=== PATIENT | female | born 1945 | race Caucasian/White ===

== ENCOUNTER → 2019-01-15 | Outpatient (CLI) | payer MEDICARE ==
--- NOTE | 2019-01-15 12:23 | Diagnostic Imaging Report ---
INDICATION: Epigastric pain. TIME OF EXAMINATION: 11:47 AM. FINDINGS: The heart size is normal. There is some atelectasis in the right base. No free air is seen. The bowel gas pattern appears nonobstructive. There is moderate stool in the colon. Calcific densities in the left abdomen may be vascular from the splenic artery. No definite pathologic calcifications are seen. IMPRESSION: No acute abnormality is detected. Dictated by: Dictated on workstation # [id number]
== END ==
LOC: RAD FS 11:33
PROVIDERS: ATTEND Family Medicine
DX: J01.00 Acute maxillary sinusitis, unspecified (principal); R10.13 Epigastric pain
CPT/HCPCS: 74022

== ENCOUNTER → 2019-06-26 | Outpatient (CLI) | payer MEDICARE ==
[~2019-06-26] MED LIST: CATHETER FLUSH 10 ML SYR IV PRN; HOLD METFORMIN - RECEIVED CONTRAST 20 ML VIAL IV SCH; IOHEXOL 350 MG/ML 100 ML (OMNIPAQUE 350) VIAL IV ONE; NS 100 ML (IVPB) BAG IV ONE
[2019-06-26 15:15] LABS: BUN/CREATININE RATIO 30; GFR ESTIMATED > 60
--- NOTE | 2019-06-26 16:11 | Diagnostic Imaging Report ---
EXAMINATION: CT angiography of the chest. TECHNIQUE: Contrast enhanced thin section helical images were obtained through the chest with intravenous contrast timed for the optimal opacification of the arterial structures per CTA protocol. Post-processing, reconstructions and interpretation of angiographic images of the vessels was performed. 3D MIP reconstructions were performed and reviewed. All CT scans use one or more of the following dose optimizing techniques: automated exposure control, MA and/or KvP adjustment based on a patient size and exam type, or iterative reconstruction. HISTORY: Hypoxia. COMPARISON: None available. FINDINGS: No pulmonary embolism is seen. Aorta is normal in caliber. There is elevation of the right hemidiaphragm. There is a small hiatal hernia. The lungs are clear without edema or pneumonia. No pleural effusion or pneumothorax. No suspicious nodules. Lungs are imaged in a partially expiratory phase leading to a hazy appearance. Heart size is normal. No pericardial effusion. There is no axillary or supraclavicular lymphadenopathy. There is no mediastinal lymphadenopathy. Gallstone is seen in the gallbladder. Cysts are seen in the kidneys. There are no suspicious osseus lesions. IMPRESSION: 1. No pulmonary embolism. 2. Elevated right hemidiaphragm. Dictated by: Dictated on workstation # [id number]
== END ==
LOC: RAD 14:37
PROVIDERS: ATTEND Nurse Practitioner Family
DX: J44.9 Chronic obstructive pulmonary disease, unspecified (principal); G47.33 Obstructive sleep apnea (adult) (pediatric); G47.10 Hypersomnia, unspecified; J98.4 Other disorders of lung; G47.36 Sleep related hypoventilation in conditions classified elsewhere; J98.6 Disorders of diaphragm
CPT/HCPCS: 36415; 71275; 82565; 84520

== ENCOUNTER 2019-07-26 15:52 | Emergency (ER) | payer MEDICARE ==
[~2019-07-26] VITALS: Ht 152 cm; Wt 77.2 kg
--- NOTE | 2019-07-26 16:21 | ED GI ---
General Chief Complaint: Abdominal/GI Problems Stated Complaint: CONGESTION/NAUSEA/VOMITING Nursing Triage Note: PT TO ED AFTER BEING SENT TO THIS ED BY DR MCKEON FOR N/V ONSET YESTERDAY WORSE TODAY. IS CURRENTLY BEING TREATED FOR A SINUS INFECTION BUT DENIES IMPROVEMENT. IS UNABLE TO WEAR HER OXYGEN DUE TO CONGESTION Sepsis Screen: No Definite Risk Source of Information: Patient, Family Exam Limitations: No Limitations (DAYDAY LEONE DO) History of Present Illness Date Seen by Provider: Jul 26, 2019 Time Seen by Provider: 16:20 Initial Comments 73-year-old female presents with congestion and "upset stomach" patient reports that she is had a "sinus infection" for at least a week. That she went and saw her primary care provider who gave her azithromycin but it did not help. She follow up and was given doxycycline and prednisone. She reports that since starting the doxycycline she's had an upset stomach and some stomach cramps. Patient reports that she cannot lay down because the drainage is bad and causes her to not go to sleep and feel like she can't breathe. Patient also reports that she has a lot of nasal congestion and feels like she cannot wear her oxygen because of the congestion. Patient has no reports of fevers. Patient reports that she just has some generalized weakness but this is chronic. (DAYDAY LEONE DO) Allergies and Home Medications Allergies Coded Allergies: No Allergy Information Available (Unverified , 06/26/19) Patient Home Medication List Home Medication List Reviewed: Yes (DAYDAY LEONE DO) Review of Systems Review of Systems Constitutional: No chills, No fever EENTM: See HPI, Nose Congestion Respiratory: See HPI, Cough Cardiovascular: See HPI Gastrointestinal: See HPI Musculoskeletal: no symptoms reported Skin: no symptoms reported (DAYDAY LEONE DO) Past Fnjquoc-Jmbmrq-Fkifzx Hx Past Med/Social Hx: Reviewed Nursing Past Med/Soc Hx (DAYDAY LEONE DO) Patient Social History Alcohol Use: Denies Use Recreational Drug Use: No Smoking Status: Never a Smoker Recent Foreign Travel: No Contact w/Someone Who Travel: No Recent Infectious Disease Expo: No Recent Hopitalizations: No Physical Abuse: No Sexual Abuse: No Mistreated: No Fear: No (DAYDAY LEONE DO) Past Medical History Surgeries: Yes Adenoidectomy, Hysterectomy, Tonsillectomy Respiratory: Yes COPD Cardiac: Yes (STENTS X3 FEBRUARY 2019) Heart Attack Neurological: No Genitourinary: No Gastrointestinal: Yes (POLYPS) Endocrine: No HEENT: No Cancer: No Psychosocial: Yes Anxiety Integumentary: No (LEONEAFIAR Jeannine DO) Physical Exam Vital Signs Vital Signs - First Documented 07/26/19 15:58 Temp 36.2 Pulse 58 Resp 20 B/P (MAP) 140/89 (106) Pulse Ox 27 O2 Delivery Room Air (AVNI BALES) Vital Signs Capillary Refill : Less Than 3 Seconds (LEONEAFIAR L DO) Height/Weight/BMI Height: '" Weight: lbs. oz. kg; 33.00 BMI Method: General Appearance: no apparent distress Respiratory: chest non-tender, lungs clear Cardiovascular: normal peripheral pulses Gastrointestinal: non tender, soft Extremities: normal range of motion, non-tender Neurologic/Psychiatric: alert, normal mood/affect, oriented x 3 Skin: normal color (LEONEAFIAR L DO) Progress/Results/Core Measures Results/Orders Lab Results Laboratory Tests Test 07/26/19 17:15 Range/Units White Blood Count 11.0 4.3-11.0 10^3/uL Red Blood Count 4.66 4.35-5.85 10^6/uL Hemoglobin 14.0 11.5-16.0 G/DL Hematocrit 43 35-52 % Mean Corpuscular Volume 92 80-99 FL Mean Corpuscular Hemoglobin 30 25-34 PG Mean Corpuscular Hemoglobin Concent 33 32-36 G/DL Red Cell Distribution Width 14.5 10.0-14.5 % Platelet Count 206 130-400 10^3/uL Mean Platelet Volume 10.0 7.4-10.4 FL Neutrophils (%) (Auto) 81 H 42-75 % Lymphocytes (%) (Auto) 15 12-44 % Monocytes (%) (Auto) 3 0-12 % Eosinophils (%) (Auto) 1 0-10 % Basophils (%) (Auto) 0 0-10 % Neutrophils # (Auto) 8.0 H 1.8-7.8 X 10^3 Lymphocytes # (Auto) 1.5 1.0-4.0 X 10^3 Monocytes # (Auto) 0.3 0.0-1.0 X 10^3 Eosinophils # (Auto) 0.1 0.0-0.3 10^3/uL Basophils # (Auto) 0.0 0.0-0.1 10^3/uL Sodium Level 139 135-145 MMOL/L Potassium Level 4.5 3.6-5.0 MMOL/L Chloride Level 107 98-107 MMOL/L Carbon Dioxide Level 20 L 21-32 MMOL/L Anion Gap 12 5-14 MMOL/L Blood Urea Nitrogen 18 7-18 MG/DL Creatinine 0.76 0.60-1.30 MG/DL Estimat Glomerular Filtration Rate > 60 BUN/Creatinine Ratio 24 Glucose Level 112 H 70-105 MG/DL Calcium Level 9.3 8.5-10.1 MG/DL Corrected Calcium 9.5 8.5-10.1 MG/DL Total Bilirubin 0.5 0.1-1.0 MG/DL Aspartate Amino Transf (AST/SGOT) 28 5-34 U/L Alanine Aminotransferase (ALT/SGPT) 25 0-55 U/L Alkaline Phosphatase 85 40-136 U/L Total Protein 7.3 6.4-8.2 GM/DL Albumin 3.8 3.2-4.5 GM/DL (AVNI BALES) Vital Signs/I&O 07/26/19 15:58 Temp 36.2 Pulse 58 Resp 20 B/P (MAP) 140/89 (106) Pulse Ox 27 O2 Delivery Room Air (AVNI BALES) Blood Pressure Mean: 106 POS Progress Progress Note : Time: 18:35 Progress Note Assume care of the patient at shift change. Labs were reviewed and x-rays were pending over read by radiologist before the patient can go home with viral upper respiratory symptoms. (AVNI BALES) Diagnostic Imaging Diagonstic Imaging: Xray Plain Films/CT/US/NM/MRI: chest Comments NAME: [facility] REC#: [id number] PT STATUS: REG ER : 1945 PHYSICIAN: DAYDAY LEONE DO ADMIT DATE: 07/26/19/ER Draft POSDate of Exam:07/26/19 CHEST 1 VIEW, AP/PA ONLY EXAM: CHEST 1 VIEW, AP/PA ONLY INDICATION: Nausea and vomiting. Hypoxia. COMPARISON: CTA chest 06/26/2019. FINDINGS: Mild cardiomegaly and prominent central pulmonary vascularity. No focal pulmonary opacity, pleural effusion or pneumothorax. No acute osseous findings. IMPRESSION: Stable cardiomegaly and prominent central pulmonary vascularity. No acute cardiopulmonary findings. Dictated on workstation # [id number] Dict: 07/26/191827 Trans: 07/26/191831 ROBE [id number] Interpreted by: GREY CHAIREZ MD Electronically signed by: Reviewed: Reviewed by Me Diagonstic Imaging: Xray Plain Films/CT/US/NM/MRI: abdomen Comments Normal, unobstructed bowel gas pattern. NAME: [facility] REC#: [id number] PT STATUS: REG ER : 1945 PHYSICIAN: DAYDAY LEONE DO ADMIT DATE: 07/26/19/ER Signed POSDate of Exam:07/26/19 ABDOMEN/KUB 1VIEW EXAMINATION: Abdomen 1 view HISTORY: Nausea and vomiting COMPARISON: 01/15/2019 FINDINGS: Bowel gas pattern is normal. No free air is seen. Lung bases are clear. IMPRESSION: 1. Normal bowel gas pattern. Dictated by: Dictated on workstation # [id number] Dict: 07/26/191827 Trans: 07/26/191831 ROBE [id number] Interpreted by: LISS ALBERTO MD Electronically signed by: LISS ALBERTO MD 07/26/191831 Reviewed: Reviewed by Me (AVNI BALES) Departure Impression Primary Impression: Viral upper respiratory tract infection Disposition: 01 HOME, SELF-CARE Condition: Stable Departure-Patient Inst. Decision time for Depature: 18:37 (AVNI BALES) Referrals: ELISHA MCKEON MD (PCP/Family) Primary Care Physician Patient Instructions: Viral Upper Respiratory Infection, Adult (DC) Add. Discharge Instructions: Nasal decongestants, Flonase, chlorpheniramine, etc. as necessary for symptomatic control. Tylenol and ibuprofen as necessary for body aches. Humidifiers and vapor rubs such as Vicks or Mentholatum. Follow-up with primary care if not seeing improvement next week. All discharge instructions reviewed with patient and/or family. Voiced understanding. DAYDAY LEONE DO Jul 26, 2019 16:20 AVNI GAMBLE Jul 26, 2019 18:35 POS
[2019-07-26 17:22] LABS: BASOPHILS % (AUTO) 0 % (0-10); EOSINOPHILS # (AUTO) 0.1 10^3/uL (0.0-0.3); EOSINOPHILS % (AUTO) 1 % (0-10); LYMPHOCYTES # (AUTO) 1.5 X 10^3 (1.0-4.0); LYMPHOCYTES % (AUTO) 15 % (12-44); MEAN CORPUSCULAR HGB CONC 33 G/DL (32-36); MEAN CORPUSCULAR VOLUME 92 FL (80-99); MONOCYTES # (AUTO) 0.3 X 10^3 (0.0-1.0); MONOCYTES % (AUTO) 3 % (0-12); NEUTROPHILS % (AUTO) 81 % (42-75); RED CELL DISTRIBUTION WIDTH 14.5 % (10.0-14.5)
[2019-07-26 17:24] LABS: HEMATOCRIT 43 % (35-52); MEAN CORPUSCULAR HEMOGLOBIN 30 PG (25-34); PLATELET COUNT 206 10^3/uL (130-400)
[2019-07-26 17:48] LABS: ALANINE AMINOTRANSFERASE 25 U/L (0-55); ALBUMIN 3.8 GM/DL (3.2-4.5); ALKALINE PHOSPHATASE 85 U/L (40-136); BILIRUBIN,TOTAL 0.5 MG/DL (0.1-1.0); BUN/CREATININE RATIO 24; CALCIUM 9.3 MG/DL (8.5-10.1); CARBON DIOXIDE 20 MMOL/L (21-32); CHLORIDE 107 MMOL/L (98-107); CREATININE SERUM 0.76 MG/DL (0.60-1.30); GFR ESTIMATED > 60; GLUCOSE 112 MG/DL (70-105); POTASSIUM 4.5 MMOL/L (3.6-5.0); SODIUM 139 MMOL/L (135-145); TOTAL PROTEIN 7.3 GM/DL (6.4-8.2)
--- NOTE | 2019-07-26 18:31 | Diagnostic Imaging Report ---
EXAMINATION: Abdomen 1 view HISTORY: Nausea and vomiting COMPARISON: 01/15/2019 FINDINGS: Bowel gas pattern is normal. No free air is seen. Lung bases are clear. IMPRESSION: 1. Normal bowel gas pattern. Dictated by: Dictated on workstation # [id number]
--- NOTE | 2019-07-26 18:33 | Diagnostic Imaging Report ---
EXAM: CHEST 1 VIEW, AP/PA ONLY INDICATION: Nausea and vomiting. Hypoxia. COMPARISON: CTA chest 06/26/2019. FINDINGS: Mild cardiomegaly and prominent central pulmonary vascularity. No focal pulmonary opacity, pleural effusion or pneumothorax. No acute osseous findings. IMPRESSION: Stable cardiomegaly and prominent central pulmonary vascularity. No acute cardiopulmonary findings. Dictated by: Dictated on workstation # [id number]
[2019-07-26 19:02] VITALS: BP 121/73
== END 2019-07-26 19:02 | disposition home or self-care (01) ==
LOC: EDUNIT# 15:52 → ER 15:54
DX: J06.9 Acute upper respiratory infection, unspecified (principal); J44.9 Chronic obstructive pulmonary disease, unspecified; I25.2 Old myocardial infarction; F41.9 Anxiety disorder, unspecified; Z90.710 Acquired absence of both cervix and uterus; Z90.89 Acquired absence of other organs
CPT/HCPCS: 36415; 71045; 74018; 80053; 85025

== ENCOUNTER 2019-08-17 18:35 | Outpatient (CLI) | payer MEDICARE, OTHER | END 2019-08-18 07:21 | disposition home or self-care (01) | LOC: SLEEP 18:35 | PROVIDERS: ATTEND Nurse Practitioner Family | DX: G47.33 Obstructive sleep apnea (adult) (pediatric) (principal); G47.36 Sleep related hypoventilation in conditions classified elsewhere; G47.10 Hypersomnia, unspecified; J44.9 Chronic obstructive pulmonary disease, unspecified; J98.4 Other disorders of lung | CPT/HCPCS: 95810 ==

== ENCOUNTER → 2019-08-20 | Outpatient (CLI) | payer MEDICARE, OTHER ==
[2019-08-20 11:24] LABS: ABG BASE EXCESS -2.7 MMOL/L (-2.5-2.5); ABG OXYGEN SATURATION 97 % (94-100); ABG PCO2 36 MMHG (35-45); ABG PH 7.39 (7.37-7.43); ABG PO2 81 MMHG (79-93); ABG TCO2 22.7 MMOL/L (21.0-31.0)
[2019-08-20 11:26] LABS: ALLENS TEST POSITIVE; INSPIRED O2 4 L; PATIENT TEMP 36.2; VENTILATOR NO
--- NOTE | 2019-08-20 15:41 | Diagnostic Imaging Report ---
PROCEDURE: US Venous Lower Ext Ma[place]. TECHNIQUE: Multiple real-time grayscale images were obtained over the lower extremities in various projections, bilaterally. Additional duplex Doppler and color Doppler images were also obtained. INDICATION: Shortness of breath with bilateral lower extremity edema. FINDINGS: There is no evidence of right or left lower extremity DVT. Both lower extremity deep venous systems show normal compressibility with normal response to augmentation and Valsalva. No fluid collection or mass is detected. IMPRESSION: No evidence of right or left lower extremity DVT. Dictated by: Dictated on workstation # [id number]
== END ==
LOC: RT 09:04
PROVIDERS: ATTEND Nurse Practitioner Family
DX: J98.4 Other disorders of lung (principal); J44.9 Chronic obstructive pulmonary disease, unspecified; M79.604 Pain in right leg; R06.00 Dyspnea, unspecified
CPT/HCPCS: 36600; 82805; 93970

== ENCOUNTER → 2019-09-12 | Outpatient (CLI) | payer MEDICARE, OTHER ==
[~2019-09-12] MED LIST changes: -CATHETER FLUSH 10 ML SYR IV PRN; -HOLD METFORMIN - RECEIVED CONTRAST 20 ML VIAL IV SCH; -IOHEXOL 350 MG/ML 100 ML (OMNIPAQUE 350) VIAL IV ONE; -NS 100 ML (IVPB) BAG IV ONE; +RT-ALBUTEROL SULF 2.5 MG/3 ML PRE-MIX VIAL INH ONE
== END ==
LOC: RT 11:17
PROVIDERS: ATTEND Nurse Practitioner Family
DX: J98.4 Other disorders of lung (principal); R06.00 Dyspnea, unspecified; G47.36 Sleep related hypoventilation in conditions classified elsewhere
CPT/HCPCS: 94060; 94726; 94729

== ENCOUNTER 2020-03-06 05:34 | Outpatient (RCR) | payer MEDICARE ==
[~2020-03-06] VITALS: Ht 152.4 cm; Wt 80.5 kg
[2020-03-06] MEDS ORDERED: MONT10TA26 PO ×2 (08:57)
[2020-03-06] MEDS ORDERED: MELO15TA39 PO ×2 (08:57)
[2020-03-06] MEDS ORDERED: LOVA20TA2 PO ×2 (08:57)
[2020-03-06] MEDS ORDERED: SPIR25TA5 PO ×2 (08:57)
[2020-03-06] MEDS ORDERED: ALPR0.254 PO ×2 (08:57)
[2020-03-06] MEDS ORDERED: FEXO180T84 PO ×2 (08:57)
[2020-03-06] MEDS ORDERED: FURO20TA4 PO ×2 (08:57)
[2020-03-06] MEDS ORDERED: LISI-552 PO ×2 (08:57)
[2020-03-06] MEDS ORDERED: ASCO500T17 PO ×2 (08:57)
[2020-03-06] MEDS ORDERED: ACET-2267 PO ×2 (08:57)
[2020-03-06] MEDS ORDERED: ASPI-983 PO ×2 (08:57)
[2020-03-06] MEDS ORDERED: CLOP75TA28 PO ×2 (08:57)
[2020-03-06] MEDS ORDERED: OMEP20TA7 PO ×2 (08:57)
[2020-03-06] MEDS ORDERED: VITA1TAB17 PO ×2 (08:57)
[2020-03-06] MEDS ORDERED: AMLO10TA7 PO ×2 (08:57)
[2020-03-06] MEDS ORDERED: METO50TA7 PO ×2 (08:57)
== END 2020-03-06 12:33 | disposition home or self-care (01) ==
LOC: PREOP 05:34
PROVIDERS: ATTEND Surgery
DX: Z01.812 Encounter for preprocedural laboratory examination (principal); Z20.828 Contact with and (suspected) exposure to other viral communicable diseases; Z86.010 Personal history of colon polyps; Z87.19 Personal history of other diseases of the digestive system
CPT/HCPCS: 87635

== ENCOUNTER 2020-03-10 07:49 | Day surgery (SDC) | payer MEDICARE ==
[~2020-03-10] VITALS: Ht 152.4 cm; Wt 80.5 kg
[~2020-03-10 07:49] MED LIST changes: +ACET-2267 PO; +ALPR0.254 PO; +AMLO10TA7 PO; +ASCO500T17 PO; +ASPI-983 PO; +CLOP75TA28 PO; +FEXO180T84 PO; +FURO20TA4 PO; +LISI-552 PO; +LOVA20TA2 PO; +MELO15TA39 PO; +METO50TA7 PO; +MONT10TA26 PO; +OMEP20TA7 PO; -RT-ALBUTEROL SULF 2.5 MG/3 ML PRE-MIX VIAL INH ONE; +SPIR25TA5 PO; +VITA1TAB17 PO
--- OUTSIDE RECORDS SUMMARY | 2020-03-10 07:55 | XMS REPORT ---
Author Author Renea MCKEON Organization [facility] MA[facility] Address [address] [place] [address] Care Team Providers Care Operations Vocational Instructor Name Role Phone ELISHA MCKEON Unavailable PROBLEMS Type Condition ICD9-CM Code UQZ76-DX Code Onset Dates Condition S tatus SNOMED Code Problem Other and unspecified noninfectious morena roenteritis and colitis(558.9) K52.9 Active 420045385 Problem Bronchitis, not specified as acute or chronic J40 Active 27318236 Problem Pneumonia of both lower lobes due to infectious organi sm J18.1 Sep, Active 399324285 Problem Severe obesity (BMI 35.0-39.9) with comorbidity E66.01 Jun, Active 448256327 Problem Coronary atherosclerosis of [place] coronary artery I25.10 Active 034789691 Problem Pure hypercholesterolemia E78.00 Acti ve 653138618 Problem Arthralgia of right hip M25.551 Feb, Act osmany 324257500 Problem Non morbid obesity due to excess calories E66.09 December, Active 773583475 Problem Sleep apnea G47.30 Nov, Active 78769 006 Problem Essential hypertension I10 Active 05785612 Problem Allergic rhinitis due to other allergen J30.89 Active 50068232 Problem Ischemic cardiomyopathy I25.5 Active 462735653 Problem Generalized osteoarthrosis, unspecified site M15.9 Active 372665193 Problem Old myocardial infarction I25.2 Acti ve 2490337 Problem Panlobular emphysema J43.1 Active 9217071 Problem Hypoxia R09.02 Sep, Active 4300327 02 Problem Dehydration E86.0 Feb, Active 45696 006 Problem Primary osteoarthritis of right foot M19.071 Active 739352022 Problem Benign essential hypertension I10 Active 3376590 Problem Anxiety F41.9 Active 68272665 Problem Mild intermittent asthma, unspecified whether complicated J45.20 Active 018848046 ALLERGIES No Information ENCOUNTERS Encounter Location Date Diagnosis [address] [id number] [place] [address] Mar, [address] [id number] [address] December, Coronary atherosclerosis of [place] coronary artery I25.10 ; Ischemic cardiomyopathy I25.5 ; Generalized osteoarthrosis, unspecified site M15.9 ; Sleep apnea G47.30 and Panlobular emphysema J43.[address] [id number] [place] [address] Nov, [address] [id number] [address] Sep, Anxiety F41.[address] [id number] [address] Sep, [address] [id number] [address] Sep, [address] [id number] [place] [address] Sep, Benign essential hypertensio n I10 and Generalized osteoarthrosis, unspecified site M15.[address] [id number] [address] Aug, [address] [id number] [address] Aug, Anxiety F41.[address] [id number] [place] [address] Aug, Coronary atherosclerosis of [place] coronary artery I25.10 ; Pure hypercholesterolemia E78.00 ; Severe obesity (BMI 35.0-39.9) with comorbidity E66.01 and Ischemic cardiomyopathy I25.[address] [id number] [address] Aug, Pure hypercholesterolemia E7 8.00 [facility] [address] [id number] [place] [address] 13 Jul, 2019 Anxiety F41.9 [facility] [address] [id number] [place] [address] Jul, Acute non-recurrent pansinus itis J01.40 [facility] [address] [id number] [place] [address] Jul, [facility] [address] [id number] [place] [address] Jul, [facility] [address] [id number] [place] [address] Jul, Acute frontal sinusitis, rec urrence not specified J01.10 [facility] [address] [id number] [place] [address] Jun, [facility] [address] [id number] [place] [address] Jun, [facility] [address] [id number] [place] [address] Jun, Acute non-recurrent maxillar y sinusitis J01.00 [facility] [address] [id number] [place] [address] Jun, [facility] [address] [id number] [place] [address] May, Coronary atherosclerosis of [place] coronary artery I25.10 ; Pure hypercholesterolemia E78.00 and Benign essential hypertension I10 [facility] [address] [id number] [place] [address] May, [facility] [address] [id number] [place] [address] May, [facility] [address] [id number] [place] [address] May, Encounter for screening mamm ogram for breast cancer Z12.[address] [id number] [place] [address] May, Chronic bronchitis, unspecif ied chronic bronchitis type J42 and Hypokalemia E87.[address] [id number] [place] [address] Apr, Benign essential hypertensio n I10 [address] 340 [id number] [address] Apr, Encounter for screening mamm ogram for breast cancer Z12.31 ; S/P cardiac cath Z98.890 ; Coronary atherosclerosis of [place] coronary artery I25.10 and Chronic bronchitis, unspecified chronic bronchitis type J42 [address] 340[address] [id number] [place] [address] Apr, Benign essential hypertensio n I10 [address] 340[address] [id number] [place] [address] Mar, Benign essential hypertensio n I10 ; Angina pectoris, unstable I20.0 ; Hypoxia R09.02 ; Elevated cholesterol E78.00 and High risk medication use Z79.[address] [id number] [place] [address] Mar, Benign essential hypertensio n I10 [facility] [address] [facility] [id number] [address] [place] [address] Feb, Elevated cholesterol E78.[address] [id number] [address] Feb, Elevated cholesterol E78.00 ; Benign essential hypertension I10 and Mucopurulent chronic bronchitis J41.1 [facility] [address] [facility] [id number] [address] [place] [address] Feb, [address] [id number] [address] Feb, [address] [id number] [place] [address] Jan, Elevated cholesterol E78.00 and Benign essential hypertension I10 [facility] [facility] [address] [id number] [place] [address] Jan, Acute non-recurrent maxillar y sinusitis J01.00 and Epigastric pain R10.13 [facility] [address] [id number] [place] [address] December, Acute non-recurrent maxillar y sinusitis J01.00 [facility] [address] [id number] [place] [address] December, [facility] [address] [id number] [place] [address] Nov, [facility] [address] [id number] [place] [address] Nov, [facility] [address] 340[address] [id number] [place] [address] Nov, Benign essential hypertensio n I10 ; Elevated cholesterol E78.00 and Acute non-recurrent maxillary sinusitis J01.00 [facility] [address] 340[address] [id number] [place] [address] Nov, [facility] [address] [facility] [id number] [address] [place] [address] Nov, [facility] [address] [id number] [place] [address] Oct, [facility] [address] 340[address] [id number] [place] [address] Sep, [facility] [address] 340[address] [id number] [place] [address] Sep, Elevated cholesterol E78.00 ; Benign essential hypertension I10 ; Mild intermittent asthma, unspecified whether complicated J45.20 ; Anxiety F41.9 and Primary osteoarthritis of right foot M19.071 [facility] [address] [facility] [id number] [address] [place] [address] Aug, [facility] [address] [id number] [address] [place] [address], [place] [address] Aug, [facility] [address] [id number] [address] [place] [address], [place] [address] Jul, [facility] [address] [id number] [address] [place] [address], [place] [address] December, [facility] [address] [id number] [address] [place] [address], [place] [address] Jan, [facility] [address] [id number] [address] [place] [address], [place] [address] Nov, [facility] [address] [id number] [address] [place] [address], [place] [address] Nov, [facility] [address] [id number] [address] [place] [address], [place] [address] Mar, [facility] [address] [id number] [address] [place] [address], [place] [address] Mar, [facility] [address] [id number] [address] [place] [address], [place] [address] Mar, [facility] [address] [id number] [address] [place] [address], [place] [address] Mar, [facility] [address] [id number] [address] [place] [address], [place] [id number] Aug, [facility] [address] [id number] [address] [place] [address], [place] [address] Aug, [facility] [address] [id number] [address] [place] [address], [place] [address] Jul, [facility] [address] [id number] [address] [place] [address], [place] [address] Jul, [facility] [address] [id number] [address] [place] [address], [place] [address] Jul, [facility] [address] [id number] [address] [place] [address], [place] [address] Jul, [facility] [address] [id number] [address] [place] [address], [place] [address] Jul, [facility] [address] [id number] [address] [place] [address], [place] [address] Jul, [facility] [address] [id number] [address] [place] [address], [place] [address] December, [facility] [address] [id number] [address] [place] [address], [place] [address] Nov, [facility] [address] [id number] [address] [place] [address], [place] [address] Jun, [facility] [address] [id number] [address] [place] [address], [place] [address] Jun, [facility] [address] [id number] [address] [place] [address], [place] [address] Jun, [facility] [address] [id number] [address] [place] [address], [place] [address] Jun, [facility] [address] [id number] [address] [place] [address], [place] [address] May, [facility] [address] [id number] [address] [place] [address], [place] [address] May, [facility] [address] [id number] [address] [place] [address], [place] [id number] May, [facility] [address] [id number] [address] [place] [address], [place] [address] May, [facility] [address] [id number] [address] [place] [address], [place] [phone] Jan, [facility] [address] [id number] [address] [place] [address], [place] [address] December, [facility] [address] [id number] [address] [place] [address], [place] [phone] December, [facility] [address] [id number] [address] [place] [address] December, [facility] [address] [id number] [address] [place] [address] December, [facility] [address] [id number] [address] [place] [address] Sep, [facility] [address] [id number] [address] [place] [address] Aug, [facility] [address] [id number] [address] [place] [address] Aug, [facility] [address] [id number] [address] [place] [address] Jun, [facility] [address] [id number] [address] [place] [address] Jun, [facility] [address] [id number] [address] [place] [address] Jun, [facility] [address] [id number] [address] [place] [address] Jun, [facility] [address] [id number] [address] [place] [address] December, IMMUNIZATIONS No Known Immunizations SOCIAL HISTORY Never Assessed REASON FOR VISIT Controlled Med Refill PLAN OF CARE VITAL SIGNS MEDICATIONS Medication Instructions Dosage Frequency Start Date End Date Duration S tatus Xanax 0.25 MG Orally Once a day 1 tablet as needed 24h Jan, 28 days Active RESULTS No Results PROCEDURES No Known procedures INSTRUCTIONS MEDICATIONS ADMINISTERED No Known Medications MEDICAL (GENERAL) HISTORY Type Description Date Medical History Hx DC Medical History Essential Hypertension Medical History Pure Hypercholesterolemia Medical History Coronary Atherosclerosis of [place] Coron alicia Artery Medical History Obesity Medical History Osteoarthrosis Medical History Allergic Rhinitis Medical History Sleep Apnea Medical History Hypoxia Medical History Hypokalemia Medical History Disorder Lipoid Metabolism Medical History Irritable Bowel Surgical History Heart Cath and Stent Placement 02/2019 Hospitalization History [facility] 02/2019
--- OUTSIDE RECORDS SUMMARY | 2020-03-10 07:55 | XMS REPORT ---
Author Author Renea AN Organization [facility] Address [address] [place] [address] Care Team Providers Care Senior Java Web Application Developer Name Role Phone CASTILLO AN Unavailable PROBLEMS Type Condition ICD9-CM Code ICI97-FT Code Onset Dates Condition S tatus SNOMED Code Problem Other and unspecified noninfectious [place] roenteritis and colitis(558.9) K52.9 Active 409351610 Problem Bronchitis, not specified as acute or chronic J40 Active 47518879 Problem Pneumonia of both lower lobes due to infectious organi sm J18.1 Sep, Active 563898112 Problem Severe obesity (BMI 35.0-39.9) with comorbidity E66.01 Jun, Active 707748358 Problem Coronary atherosclerosis of [place] coronary artery I25.10 Active 406098114 Problem Pure hypercholesterolemia E78.00 Acti ve 720703730 Problem Arthralgia of right hip M25.551 Feb, Act osmany 294974406 Problem Non morbid obesity due to excess calories E66.09 December, Active 842453201 Problem Sleep apnea G47.30 23 Nov, 2008 Active 64694 006 Problem Essential hypertension I10 Active 11100817 Problem Allergic rhinitis due to other allergen J30.89 Active 77907126 Problem Ischemic cardiomyopathy I25.5 Active 377112380 Problem Generalized osteoarthrosis, unspecified site M15.9 Active 989790269 Problem Old myocardial infarction I25.2 Acti ve 1306830 Problem Panlobular emphysema J43.1 Active 4962254 Problem Hypoxia R09.02 Sep, Active 6373277 02 Problem Dehydration E86.0 Feb, Active 17990 006 Problem Primary osteoarthritis of right foot M19.071 Active 893561846 Problem Benign essential hypertension I10 Active 3900072 Problem Anxiety F41.9 Active 75135735 Problem Mild intermittent asthma, unspecified whether complicated J45.20 Active 679791954 ALLERGIES No Information ENCOUNTERS Encounter Location Date Diagnosis [facility] [address] [id number] [place] [address] Mar, [address] [id number] [place] [address] December, Coronary atherosclerosis of [place] coronary artery I25.10 ; Ischemic cardiomyopathy I25.5 ; Generalized osteoarthrosis, unspecified site M15.9 ; Sleep apnea G47.30 and Panlobular emphysema J43.[address] [id number] [place] [address] Nov, [address] [id number] [place] [address] Sep, Anxiety F41.[address] [id number] [place] [address] Sep, [address] [id number] [address] Sep, [address] [id number] [place] [address] Sep, Benign essential hypertensio n I10 and Generalized osteoarthrosis, unspecified site M15.[address] [id number] [place] [address] Aug, [address] [id number] [address] Aug, Anxiety F41.[address] [id number] [place] [address] Aug, Coronary atherosclerosis of [place] coronary artery I25.10 ; Pure hypercholesterolemia E78.00 ; Severe obesity (BMI 35.0-39.9) with comorbidity E66.01 and Ischemic cardiomyopathy I25.[address] [id number] [place] [address] Aug, Pure hypercholesterolemia E7 8.[address] [id number] [place] [address] Jul, [facility]xiety F41.9 [facility] [address] [id number] [place] [address] Jul, Acute non-recurrent pansinus itis J01.40 [facility] [address] [id number] [place] [address] Jul, [facility] [address] [id number] [place] [address] Jul, [facility] [address] [id number] [place] [address] Jul, Acute frontal sinusitis, rec urrence not specified J01.10 [facility] [address] [id number] [place] [address] Jun, [facility] [address] [id number] [place] [address] Jun, [facility] [address] [id number] [place] [address] Jun, Acute non-recurrent maxillar y sinusitis J01.00 [facility] [address] [id number] [place] [address] Jun, [facility] [address] [id number] [place] [address] May, Coronary atherosclerosis of [place] coronary artery I25.10 ; Pure hypercholesterolemia E78.00 and Benign essential hypertension I10 [facility] [address] [id number] [place] [address] May, [facility] [address] [id number] [place] [address] May, [facility] [address] [id number] [place] [address] May, Encounter for screening mamm ogram for breast cancer Z12.31 [facility] [address] [id number] [place] [address] May, Chronic bronchitis, unspecif ied chronic bronchitis type J42 and Hypokalemia E87.[address] 340[address] [id number] [place] [address] Apr, Benign essential hypertensio n I10 [address] 340[place] [id number], [place] [address] Apr, Encounter for screening mamm ogram for breast cancer Z12.31 ; S/P cardiac cath Z98.890 ; Coronary atherosclerosis of [place] coronary artery I25.10 and Chronic bronchitis, unspecified chronic bronchitis type J42 [address] 340[address] [id number], [place] [address] Apr, Benign essential hypertensio n I10 [address] 340B [id number], [place] [address] Mar, Benign essential hypertensio n I10 ; Angina pectoris, unstable I20.0 ; Hypoxia R09.02 ; Elevated cholesterol E78.00 and High risk medication use Z79.[address] 340[address] [id number], [place] [address] Mar, Benign essential hypertensio n I10 [facility] [address] [facility] [id number] [address] [place] [address] Feb, Elevated cholesterol E78.[address] 340[address] [id number] [address] Feb, Elevated cholesterol E78.00 ; Benign essential hypertension I10 and Mucopurulent chronic bronchitis J41.1 [facility] [address] [facility] [id number] [address] [place] [address] Feb, [address] 340[address] [id number], [place] [address] Feb, [address] 340[address] [id number] [address] Jan, Elevated cholesterol E78.00 and Benign essential hypertension I10 [facility] [address] 340[address] [id number] [place] [address] Jan, Acute non-recurrent maxillar y sinusitis J01.00 and Epigastric pain R10.13 [facility] [address] [id number] [place] [address] December, Acute non-recurrent maxillar y sinusitis J01.00 [facility] [address] 340B [id number] [place] [address] December, [facility] [address] 340B [id number] [place] [address] Nov, [facility] [address] 340B [id number] [place] [address] Nov, [facility] [address] 340B [id number], [place] [address] Nov, Benign essential hypertensio n I10 ; Elevated cholesterol E78.00 and Acute non-recurrent maxillary sinusitis J01.00 [facility] [address] 340B [id number] [place] [address] Nov, [facility] [address] [facility] [id number] [address] [place] [address] Nov, [facility] [address] 340[address] [id number] [address] Oct, [facility] [address] 340[address] [id number], [place] [address] Sep, [facility] [address] 340[address] [id number], [place] [address] Sep, Elevated cholesterol E78.00 ; Benign essential hypertension I10 ; Mild intermittent asthma, unspecified whether complicated J45.20 ; Anxiety F41.9 and Primary osteoarthritis of right foot M19.071 [facility] [address] [facility] [id number] [address] [place] [address] Aug, [facility] [address] [id number] [address] [place] [address], [place] [address] Aug, [facility] [address] [id number] [address] [place] [address], [place] [address] Jul, [facility] [address] [id number] [address] [place] [address], [place] [address] December, [facility] [address] [id number] [address] [place] [address], [place] [address] Jan, [facility] [address] [id number] [address] [place] [address], [place] [address] Nov, [facility] [address] [id number] [address] [place] [address], [place] [address] Nov, [facility] [address] [id number] [address] [place] [address], [place] [address] Mar, [facility] [address] [id number] [address] [place] [address], [place] [address] Mar, [facility] [address] [id number] [address] [place] [address], [place] [address] Mar, [facility] [address] [id number] [address] [place] [address], [place] [address] Mar, [facility] [address] [id number] [address] [place] [address], [place] [address] Aug, [facility] [address] [id number] [address] [place] [address], [place] [address] Aug, [facility] [address] [id number] [address] [place] [address], [place] [address] Jul, [facility] [address] [id number] [address] [place] [address], [place] [address] Jul, [facility] [address] [id number] [address] [place] [address], [place] [address] Jul, [facility] [address] [id number] [address] [place] [address], [place] [address] Jul, [facility] [address] [id number] [address] [place] [address], [place] [address] Jul, [facility] [address] [id number] [address] [place] [address], [place] [address] Jul, [facility] [address] [id number] [address] [place] [address], [place] [address] December, [facility] [address] [id number] [address] [place] [address], [place] [address] Nov, [facility] [address] [id number] [address] [place] [address], [place] [address] Jun, [facility] [address] [id number] [address] [place] [address], [place] [address] Jun, [facility] [address] [id number] [address] [place] [address], [place] [address] Jun, [facility] [address] [id number] [address] [place] [address], [place] [address] Jun, [facility] [address] [id number] [address] [place] [address], [place] [address] May, [facility] [address] [id number] [address] [place] [address], [place] [address] May, [facility] [address] [id number] [address] [place] [address], [place] [address] May, [facility] [address] [id number] [address] [place] [address], [place] [address] May, [facility] [address] [id number] [address] [place] [address], [place] [address] Jan, [facility] [address] [id number] [address] [place] [address], [place] [address] December, [facility] [address] [id number] [address] [place] [address], [place] [address] December, [facility] [address] [id number] [address] [place] [address] December, [facility] [address] [id number] [address] [place] [address] December, [facility] [address] [id number] [address] [place] [address] Sep, [facility] [address] [id number] [address] [place] [address] Aug, [facility] [address] [id number] [address] [place] [address] Aug, [facility] [address] [id number] [address] [place] [address] Jun, [facility] [address] [id number] [address] [place] [address] Jun, [facility] [address] [id number] [address] [place] [address] Jun, [facility] [address] [id number] [address] [place] [address] 15 Jun, 2011 [facility] [address] [id number] [address] [place] [address] December, IMMUNIZATIONS No Known Immunizations SOCIAL HISTORY Never Assessed REASON FOR VISIT PLAN OF CARE VITAL SIGNS Height 62 in 2013-07-20 Weight 177.9 lbs 2013-07-20 Temperature 97.7 degrees Fahrenheit 2013-07-20 Heart Rate 60 bpm 2013-07-20 Respiratory Rate 20 2013-07-20 Blood pressure systolic 142 mmHg 2013-07-20 Blood pressure diastolic 80 mmHg 2013-07-20 MEDICATIONS Unknown Medications RESULTS No Results PROCEDURES Procedure Date Ordered Result Body Site ADMN FLU VAC NO FEE SCHED SAME DAY Jul 20, 2013 INSTRUCTIONS MEDICATIONS ADMINISTERED No Known Medications MEDICAL (GENERAL) HISTORY Type Description Date Medical History Hx VA Medical History Essential Hypertension Medical History Pure Hypercholesterolemia Medical History Coronary Atherosclerosis of [place] Coron alicia Artery Medical History Obesity Medical History Osteoarthrosis Medical History Allergic Rhinitis Medical History Sleep Apnea Medical History Hypoxia Medical History Hypokalemia Medical History Disorder Lipoid Metabolism Medical History Irritable Bowel Surgical History Heart Cath and Stent Placement 02/2019 Hospitalization History [facility] 02/2019
--- OUTSIDE RECORDS SUMMARY | 2020-03-10 07:56 | XMS REPORT ---
Author Author Renea AN Organization [facility] Address [address] [place] [address] Care Team Providers Care Fire Investigation Lieutenant Name Role Phone CASTILLO AN Unavailable PROBLEMS Type Condition ICD9-CM Code LVC03-HX Code Onset Dates Condition S tatus SNOMED Code Problem Bronchitis, not specified as acute or chronic J40 Active 41204612 Problem Dehydration E86.0 Feb, Active 91895 006 Problem Severe obesity (BMI 35.0-39.9) with comorbidity E66.01 Jun, Active 396122261 Problem Other and unspecified noninfectious morena roenteritis and colitis(558.9) K52.9 Active 174484524 Problem Pure hypercholesterolemia E78.00 Acti ve 518103592 Problem Pneumonia of both lower lobes due to infectious organi sm J18.1 Sep, Active 789545668 Problem Non morbid obesity due to excess calories E66.09 December, Active 222365197 Problem Coronary atherosclerosis of [place] coronary artery I25.10 Active 527292688 Problem Generalized osteoarthrosis, unspecified site M15.9 Active 550608652 Problem Sleep apnea G47.30 Nov, Active 24429 006 Problem Essential hypertension I10 Active 53323734 Problem Mild intermittent asthma, unspecified whether complicated J45.20 Active 632261464 Problem Hypoxia R09.02 Sep, Active 4279249 02 Problem Ischemic cardiomyopathy I25.5 Active 742904937 Problem Arthralgia of right hip M25.551 12 Feb, 2016 Act osmany 642282551 Problem Old myocardial infarction I25.2 Acti ve 7771590 Problem Allergic rhinitis due to other allergen J30.89 Active 88242338 Problem Primary osteoarthritis of right foot M19.071 Active 298276472 Problem Benign essential hypertension I10 Active 1668068 Problem Anxiety F41.9 Active 43529528 ALLERGIES No Information ENCOUNTERS Encounter Location Date Diagnosis [address] [id number] [place] [address] December, [address] [id number] [place] [address] Sep, Anxiety F41.[address] [id number] [place] [address] Sep, [address] [id number] [address] Sep, [address] [id number] [place] [address] Sep, Benign essential hypertensio n I10 and Generalized osteoarthrosis, unspecified site M15.[address] [id number] [place] [address] Aug, [id number], [place] [address] Aug, Anxiety F41.[address] [id number], [place] [address] Aug, Coronary atherosclerosis of [place] coronary artery I25.10 ; Pure hypercholesterolemia E78.00 ; Severe obesity (BMI 35.0-39.9) with comorbidity E66.01 and Ischemic cardiomyopathy I25.[address] [id number], [place] [address] Aug, Pure hypercholesterolemia E7 8.[address] [id number] [place] [address] Jul, Anxiety F41.[address] [id number], [place] [address] Jul, Acute non-recurrent pansinus itis J01.40 [facility] [address] [id number] [place] [address] Jul, [address] [id number], [place] [address] Jul, [facility] [address] [id number] [place] [address] Jul, Acute frontal sinusitis, rec urrence not specified J01.10 [facility] [address] [id number] [place] [address] Jun, [facility] [address] [id number] [place] [address] Jun, [facility] [address] [id number] [place] [address] Jun, Acute non-recurrent maxillar y sinusitis J01.00 [facility] [address] [id number] [place] [address] Jun, [facility] [address] [id number] [place] [address] May, Coronary atherosclerosis of [place] coronary artery I25.10 ; Pure hypercholesterolemia E78.00 and Benign essential hypertension I10 [facility] [address] [id number] [place] [address] May, [facility] [address] [id number] [place] [address] May, [facility] [address] [id number] [place] [address] May, Encounter for screening mamm ogram for breast cancer Z12.31 [facility] [address] [id number] [place] [address] May, Chronic bronchitis, unspecif ied chronic bronchitis type J42 and Hypokalemia E87.6 [facility] [address] [id number] [place] [address] Apr, Benign essential hypertensio n I10 [facility] [address] [id number] [place] [address] Apr, Encounter for screening mamm ogram for breast cancer Z12.31 ; S/P cardiac cath Z98.890 ; Coronary atherosclerosis of [place] coronary artery I25.10 and Chronic bronchitis, unspecified chronic bronchitis type J42 [address] [id number] [place] [address] Apr, Benign essential hypertensio n I10 [address] [id number] [place] [address] Mar, Benign essential hypertensio n I10 ; Angina pectoris, unstable I20.0 ; Hypoxia R09.02 ; Elevated cholesterol E78.00 and High risk medication use Z79.[address] [id number], [place] [address] Mar, Benign essential hypertensio n I10 [facility] [address] [facility] [id number] [place], [place] [address] Feb, Elevated cholesterol E78.[address] [id number], [place] [address] Feb, Elevated cholesterol E78.00 ; Benign essential hypertension I10 and Mucopurulent chronic bronchitis J41.1 [facility] [address] [facility] [id number] [place] [address] Feb, [address] [id number] [place] [address] Feb, [address] [id number], [place] [address] Jan, Elevated cholesterol E78.00 and Benign essential hypertension I10 [address] [id number] [place] [address] Jan, Acute non-recurrent maxillar y sinusitis J01.00 and Epigastric pain R10.[address] [id number] [place] [address] December, Acute non-recurrent maxillar y sinusitis J01.[address] [id number] [place] [address] December, [facility] [address] [id number] [place] [address] Nov, [facility] [address] [id number] [place] [address] Nov, [facility] [address] [id number] [place] [address] Nov, Benign essential hypertensio n I10 ; Elevated cholesterol E78.00 and Acute non-recurrent maxillary sinusitis J01.00 [facility] [place] [address] [id number] [place] [address] Nov, [facility] [address] [facility] [id number] [address] [place] [place] [address] Nov, [facility] [address] [id number] [place] [address] Oct, [facility] [address] [id number] [place] [address] Sep, [facility] [address] [id number] [place] [address] Sep, Elevated cholesterol E78.00 ; Benign essential hypertension I10 ; Mild intermittent asthma, unspecified whether complicated J45.20 ; Anxiety F41.9 and Primary osteoarthritis of right foot M19.071 [facility] [address] [facility] [id number] [address] [place] [place] [address] Aug, [facility] [address] [facility]] [id number] [address] [place] [place] [address] Aug, [facility] [address] [facility] [id number] [address] [place] [place] [address] Jul, [facility] [address] [facility] [id number] [address] [place] [place] [address] December, [facility] [address] [facility] [id number] [address] [place] [place] [address] Jan, [facility] [address] [id number] [address] [place] [address], [place] [address] Nov, [facility] [address] [id number] [address] [place] [address], [place] [address] Nov, [facility] [address] [id number] [address] [place] [address], [place] [address] Mar, [facility] [address] [id number] [address] [place] [address], [place] [address] Mar, [facility] [address] [id number] [address] [place] [address], [place] [address] Mar, [facility] [address] [id number] [address] [place] [address], [place] [address] Mar, [facility] [address] [id number] [address] [place] [address], [place] [address] Aug, [facility] [address] [id number] [address] [place] [address], [place] [address] Aug, [facility] [address] [id number] [address] [place] [address], [place] [address] Jul, [facility] [address] [id number] [address] [place] [address], [place] [address] Jul, [facility] [address] [id number] [address] [place] [address], [place] [address] Jul, [facility] [address] [id number] [address] [place] [address], [place] [address] Jul, [facility] [address] [id number] [address] [place] [address], [place] [address] Jul, [facility] [address] [id number] [address] [place] [address], [place] [address] Jul, [facility] [address] [id number] [address] [place] [address], [place] [address] December, [facility] [address] [id number] [address] [place] [address], [place] [address] Nov, [facility] [address] [id number] [address] [place] [address], [place] [address] Jun, [facility] [address] [id number] [address] [place] [address], [place] [address] Jun, [facility] [address] [id number] [address] [place] [address], [place] [address] Jun, [facility] [address] [id number] [address] [place] [address], [place] [address] Jun, [facility] [address] [id number] [address] [place] [address], [place] [address] May, [facility] [address] [id number] [address] [place] [address], [place] [address] May, [facility] [address] [id number] [address] [place] [address], [place] [address] May, [facility] [address] [id number] [address] [place] [address], [place] [address] May, [facility] [address] [id number] [address] [place] [address], [place] [address] Jan, [facility] [address] [id number] [address] [place] [address], [place] [address] December, [facility] [address] [id number] [address] [place] [address], [place] [address] December, [facility] [address] [id number] [address] [place] [address], [place] [address] December, [facility] [address] [id number] [address] [place] [address], [place] [address] December, [facility] [address] [id number] [address] [place] [address], [place] [address] Sep, [facility] [address] [id number] [address] [place] [address], [place] [address] Aug, [facility] [address] [facility] [id number] [address] [place] [address] Aug, [facility] [address] [facility]] [id number] [address] [place] [place] [address] Jun, [facility] [address] [facility] [id number] [address] [place] [place] [address] Jun, [facility] [address] [facility] [id number] [address] [place] [place] [address] Jun, [facility] [address] [facility] [id number] [address] [place] [place] [address] Jun, [facility] [address] [facility] [id number] [address] [place] [place] [address] December, IMMUNIZATIONS No Known Immunizations SOCIAL HISTORY Never Assessed REASON FOR VISIT PLAN OF CARE VITAL SIGNS MEDICATIONS Unknown Medications RESULTS No Results PROCEDURES No Known procedures INSTRUCTIONS MEDICATIONS ADMINISTERED No Known Medications MEDICAL (GENERAL) HISTORY Type Description Date Medical History Hx NE Medical History Essential Hypertension Medical History Pure Hypercholesterolemia Medical History Coronary Atherosclerosis of [place] Coron alicia Artery Medical History Obesity Medical History Osteoarthrosis Medical History Allergic Rhinitis Medical History Sleep Apnea Medical History Hypoxia Medical History Hypokalemia Medical History Disorder Lipoid Metabolism Medical History Irritable Bowel Surgical History Heart Cath and Stent Placement 02/2019 Hospitalization History [facility] 02/2019
--- OUTSIDE RECORDS SUMMARY | 2020-03-10 07:56 | XMS REPORT ---
Author Author Renea AN Organization [facility] Address [address] [place] [address] Care Team Providers Care Automatic Engraver Name Role Phone CASTILLO AN Unavailable PROBLEMS Type Condition ICD9-CM Code TGF68-IE Code Onset Dates Condition S tatus SNOMED Code Problem Other and unspecified noninfectious [place] roenteritis and colitis(558.9) K52.9 Active 500460805 Problem Bronchitis, not specified as acute or chronic J40 Active 52358925 Problem Pneumonia of both lower lobes due to infectious organi sm J18.1 Sep, Active 664432233 Problem Severe obesity (BMI 35.0-39.9) with comorbidity E66.01 Jun, Active 601818984 Problem Coronary atherosclerosis of [place] coronary artery I25.10 Active 278809013 Problem Pure hypercholesterolemia E78.00 Acti ve 066114596 Problem Arthralgia of right hip M25.551 Feb, Act osmany 691112222 Problem Non morbid obesity due to excess calories E66.09 December, Active 345170981 Problem Sleep apnea G47.30 23 Nov, 2008 Active 91031 006 Problem Essential hypertension I10 Active 92926266 Problem Allergic rhinitis due to other allergen J30.89 Active 96738394 Problem Ischemic cardiomyopathy I25.5 Active 188734549 Problem Generalized osteoarthrosis, unspecified site M15.9 Active 229855929 Problem Old myocardial infarction I25.2 Acti ve 1130714 Problem Panlobular emphysema J43.1 Active 4008411 Problem Hypoxia R09.02 Sep, Active 4360953 02 Problem Dehydration E86.0 Feb, Active 72986 006 Problem Primary osteoarthritis of right foot M19.071 Active 837864387 Problem Benign essential hypertension I10 Active 6696878 Problem Anxiety F41.9 Active 44847711 Problem Mild intermittent asthma, unspecified whether complicated J45.20 Active 425514722 ALLERGIES No Information ENCOUNTERS Encounter Location Date Diagnosis [facility] [address] [id number] [place] [address] Mar, [address] [id number] [place] [address] December, Coronary atherosclerosis of [place] coronary artery I25.10 ; Ischemic cardiomyopathy I25.5 ; Generalized osteoarthrosis, unspecified site M15.9 ; Sleep apnea G47.30 and Panlobular emphysema J43.[address] [id number] [place] [address] Nov, [address] [id number] [place] [address] Sep, Anxiety F41.[address] [id number] [place] [address] Sep, [address] 340[address] [id number], [place] [address] Sep, [address] [id number] [place] [address] Sep, Benign essential hypertensio n I10 and Generalized osteoarthrosis, unspecified site M15.[address] [id number] [place] [address] Aug, [address] 340[address] [id number], [place] [address] Aug, Anxiety F41.[address] [id number] [place] [address] Aug, Coronary atherosclerosis of [place] coronary artery I25.10 ; Pure hypercholesterolemia E78.00 ; Severe obesity (BMI 35.0-39.9) with comorbidity E66.01 and Ischemic cardiomyopathy I25.[address] 340[address] [id number] [place] [address] Aug, Pure hypercholesterolemia E7 8.[address] [id number] [place] [address] Jul, [facility]xiety F41.9 [facility] [address] [id number] [place] [address] Jul, Acute non-recurrent pansinus itis J01.40 [facility] [address] [id number] [place] [address] Jul, [facility] [address] [id number] [place] [address] Jul, [facility] [address] [id number] [place] [address] Jul, Acute frontal sinusitis, rec urrence not specified J01.10 [facility] [address] [id number] [place] [address] Jun, [facility] [address] [id number] [place] [address] Jun, [facility] [address] [id number] [place] [address] Jun, Acute non-recurrent maxillar y sinusitis J01.00 [facility] [address] [id number] [place] [address] Jun, [facility] [address] [id number] [place] [address] May, Coronary atherosclerosis of [place] coronary artery I25.10 ; Pure hypercholesterolemia E78.00 and Benign essential hypertension I10 [facility] [address] [id number] [place] [address] May, [facility] [address] [id number] [place] [address] May, [facility] [address] [id number] [place] [address] May, Encounter for screening mamm ogram for breast cancer Z12.31 [facility] [address] [id number] [place] [address] May, Chronic bronchitis, unspecif ied chronic bronchitis type J42 and Hypokalemia E87.[address] 340B [id number] [place] [address] Apr, Benign essential hypertensio n I10 [address] 340B [id number], [place] [address] Apr, Encounter for screening mamm ogram for breast cancer Z12.31 ; S/P cardiac cath Z98.890 ; Coronary atherosclerosis of [place] coronary artery I25.10 and Chronic bronchitis, unspecified chronic bronchitis type J42 [address] 340B [id number], [place] [address] Apr, Benign essential hypertensio n I10 [address] 340B [id number], [place] [address] Mar, Benign essential hypertensio n I10 ; Angina pectoris, unstable I20.0 ; Hypoxia R09.02 ; Elevated cholesterol E78.00 and High risk medication use Z79.[address] 340B [id number], [place] [address] Mar, Benign essential hypertensio n I10 [facility] [address] [facility] [id number] [address] [place] [address] Feb, Elevated cholesterol E78.[address] 340B [id number], [place] [address] Feb, Elevated cholesterol E78.00 ; Benign essential hypertension I10 and Mucopurulent chronic bronchitis J41.1 [facility] [address] [facility] [id number] [address] [place] [address] Feb, [address] 340[address] [id number], [place] [address] Feb, [address] 340B [id number], [place] [address] Jan, Elevated cholesterol E78.00 and Benign essential hypertension I10 [facility] [facility] [address]B [id number] [place] [address] Jan, Acute non-recurrent maxillar y sinusitis J01.00 and Epigastric pain R10.13 [facility] [address] [id number] [place] [address] December, Acute non-recurrent maxillar y sinusitis J01.00 [facility] [address] [id number] [place] [address] December, [facility] [address] 340B [id number] [place] [address] Nov, [facility] [address]B [id number] [place] [address] Nov, [facility] [address] 340B [id number], [place] [address] Nov, Benign essential hypertensio n I10 ; Elevated cholesterol E78.00 and Acute non-recurrent maxillary sinusitis J01.00 [facility] [facility] [address] 340B [id number] [place] [address] Nov, [facility] [address] [facility] [id number] [address] [place] [address] Nov, [facility] [address] 340B [id number], [place] [address] Oct, [facility] [address] 340B [id number], [place] [address] Sep, [facility] [address] 340B [id number], [place] [address] Sep, Elevated cholesterol E78.00 ; Benign essential hypertension I10 ; Mild intermittent asthma, unspecified whether complicated J45.20 ; Anxiety F41.9 and Primary osteoarthritis of right foot M19.071 [facility] [address] [facility] [id number] [address] [place] [address] Aug, [facility] [address] [id number] [address] [place] [address], [place] [address] Aug, [facility] [address] [id number] [address] [place] [address], [place] [address] Jul, [facility] [address] [id number] [address] [place] [address], [place] [address] December, [facility] [address] [id number] [address] [place] [address], [place] [address] Jan, [facility] [address] [id number] [address] [place] [address], [place] [address] Nov, [facility] [address] [id number] [address] [place] [address], [place] [address] Nov, [facility] [address] [id number] [address] [place] [address], [place] [address] Mar, [facility] [address] [id number] [address] [place] [address], [place] [address] Mar, [facility] [address] [id number] [address] [place] [address], [place] [address] Mar, [facility] [address] [id number] [address] [place] [address], [place] [address] Mar, [facility] [address] [id number] [address] [place] [address], [place] [address] Aug, [facility] [address] [id number] [address] [place] [address], [place] [address] Aug, [facility] [address] [id number] [address] [place] [address], [place] [address] Jul, [facility] [address] [id number] [address] [place] [address], [place] [address] Jul, [facility] [address] [id number] [address] [place] [address], [place] [address] Jul, [facility] [address] [id number] [address] [place] [address], [place] [address] Jul, [facility] [address] [id number] [address] [place] [address], [place] [address] Jul, [facility] [address] [id number] [address] [place] [address], [place] [address] Jul, [facility] [address] [id number] [address] [place] [address], [place] [address] December, [facility] [address] [id number] [address] [place] [address], [place] [address] Nov, [facility] [address] [id number] [address] [place] [address], [place] [address] Jun, [facility] [address] [id number] [address] [place] [address], [place] [address] Jun, [facility] [address] [id number] [address] [place] [address], [place] [address] Jun, [facility] [address] [id number] [address] [place] [address], [place] [address] Jun, [facility] [address] [id number] [address] [place] [address], [place] [address] May, [facility] [address] [id number] [address] [place] [address], [place] [address] May, [facility] [address] [id number] [address] [place] [address], [place] [address] May, [facility] [address] [id number] [address] [place] [address], [place] [address] May, [facility] [address] [id number] [address] [place] [address], [place] [address] Jan, [facility] [address] [id number] [address] [place] [address], [place] [address] December, [facility] [address] [id number] [address] [place] [address], [place] [address] December, [facility] [address] [id number] [address] [place] [address] December, [facility] [address] [id number] [address] [place] [address] December, [facility] [address] [id number] [address] [place] [address] Sep, [facility] [address] [id number] [address] [place] [address] Aug, [facility] [address] [id number] [address] [place] [address] Aug, [facility] [address] [id number] [address] [place] [address] Jun, [facility] [address] [id number] [address] [place] [address] Jun, [facility] [address] [id number] [address] [place] [address] Jun, [facility] [address] [id number] [address] [place] [address] Jun, [facility] [address] [id number] [address] [place] [address] December, IMMUNIZATIONS No Known Immunizations SOCIAL HISTORY Never Assessed REASON FOR VISIT PLAN OF CARE VITAL SIGNS MEDICATIONS Unknown Medications RESULTS No Results PROCEDURES No Known procedures INSTRUCTIONS MEDICATIONS ADMINISTERED No Known Medications MEDICAL (GENERAL) HISTORY Type Description Date Medical History Hx [place] Medical History Essential Hypertension Medical History Pure Hypercholesterolemia Medical History Coronary Atherosclerosis of [place] Coron alicia Artery Medical History Obesity Medical History Osteoarthrosis Medical History Allergic Rhinitis Medical History Sleep Apnea Medical History Hypoxia Medical History Hypokalemia Medical History Disorder Lipoid Metabolism Medical History Irritable Bowel Surgical History Heart Cath and Stent Placement 02/2019 Hospitalization History [facility] 02/2019
--- OUTSIDE RECORDS SUMMARY | 2020-03-10 07:56 | XMS REPORT ---
Author Author Renea AN Organization [facility] Address [address] [place] [address] Care Team Providers Care Director Of Emergency Nursing Name Role Phone CASTILLO AN Unavailable PROBLEMS Type Condition ICD9-CM Code [id number] Code Onset Dates Condition S tatus SNOMED Code Problem Bronchitis, not specified as acute or chronic J40 Active 39339065 Problem Dehydration E86.0 Feb, Active 45331 006 Problem Severe obesity (BMI 35.0-39.9) with comorbidity E66.01 Jun, Active 912138297 Problem Other and unspecified noninfectious [place]na roenteritis and colitis(558.9) K52.9 Active 172017131 Problem Pure hypercholesterolemia E78.00 Acti ve 182083263 Problem Pneumonia of both lower lobes due to infectious organi sm J18.1 Sep, Active 187045275 Problem Non morbid obesity due to excess calories E66.09 December, Active 403329274 Problem Coronary atherosclerosis of [place] coronary artery I25.10 Active 661476806 Problem Generalized osteoarthrosis, unspecified site M15.9 Active 694911850 Problem Sleep apnea G47.30 Nov, Active 92270 006 Problem Essential hypertension I10 Active 23719293 Problem Mild intermittent asthma, unspecified whether complicated J45.20 Active 220955915 Problem Hypoxia R09.02 Sep, Active 7055100 02 Problem Ischemic cardiomyopathy I25.5 Active 207100940 Problem Arthralgia of right hip M25.551 Feb, Act osmany 947611068 Problem Old myocardial infarction I25.2 Acti ve 7720494 Problem Allergic rhinitis due to other allergen J30.89 Active 99805484 Problem Primary osteoarthritis of right foot M19.071 Active 070387045 Problem Benign essential hypertension I10 Active 8146784 Problem Anxiety F41.9 Active 09993662 ALLERGIES No Information ENCOUNTERS Encounter Location Date Diagnosis [address] [place] [address] December, [address] [place] [address] Sep, Anxiety F41.[address] [place] [address] Sep, [address] [place] [address] Sep, [address] [place] [address] Sep, Benign essential hypertensio n I10 and Generalized osteoarthrosis, unspecified site M15.[address] [place] [address] Aug, [address] [place] [address] Aug, Anxiety F41.[address] [place] [address] Aug, Coronary atherosclerosis of [place] coronary artery I25.10 ; Pure hypercholesterolemia E78.00 ; Severe obesity (BMI 35.0-39.9) with comorbidity E66.01 and Ischemic cardiomyopathy I25.[address] [place] [address] Aug, Pure hypercholesterolemia E7 8.[address] [place] [address] Jul, Anxiety F41.[address] [place] [address] Jul, Acute non-recurrent pansinus itis J01.40 [facility] [address] [place] [address] Jul, [address] [place] [address] Jul, [facility] [address] [place] [address] Jul, Acute frontal sinusitis, rec urrence not specified J01.10 [facility] [address] [place] [address] Jun, [facility] [address] [place] [address] Jun, [facility] [place] [address] [place] [address] Jun, Acute non-recurrent maxillar y sinusitis J01.00 [facility] [address] [place] [address] Jun, [facility] [address] [place] [address] May, Coronary atherosclerosis of [place] coronary artery I25.10 ; Pure hypercholesterolemia E78.00 and Benign essential hypertension I10 [facility] [address] [place] [address] May, [facility] [address] [place] [address] May, [facility] [address] [place] [address] May, Encounter for screening mamm ogram for breast cancer Z12.31 [facility] [address] [place] [address] May, Chronic bronchitis, unspecif ied chronic bronchitis type J42 and Hypokalemia E87.6 [facility] [address] [place] [address] Apr, Benign essential hypertensio n I10 [facility] [address] [place] [address] Apr, Encounter for screening mamm ogram for breast cancer Z12.31 ; S/P cardiac cath Z98.890 ; Coronary atherosclerosis of [place] coronary artery I25.10 and Chronic bronchitis, unspecified chronic bronchitis type J42 [address] [place] [address] Apr, Benign essential hypertensio n I10 [address] [place] [address] Mar, Benign essential hypertensio n I10 ; Angina pectoris, unstable I20.0 ; Hypoxia R09.02 ; Elevated cholesterol E78.00 and High risk medication use Z79.[address] [place] [address] Mar, Benign essential hypertensio n I10 [facility] [address] [id number] [place] [address] Feb, Elevated cholesterol E78.[address] [place] [address] Feb, Elevated cholesterol E78.00 ; Benign essential hypertension I10 and Mucopurulent chronic bronchitis J41.1 [facility] [address] [id number] [place] [address] Feb, [address] [place] [address] Feb, [address] [place] [address] Jan, Elevated cholesterol E78.00 and Benign essential hypertension I10 [address] [place] [address] Jan, Acute non-recurrent maxillar y sinusitis J01.00 and Epigastric pain R10.[address] [place] [address] December, Acute non-recurrent maxillar y sinusitis J01.[address] [place] [address] December, [address] [place] [address] Nov, [facility] [address] [place] [address] Nov, [address] [place] [address] Nov, Benign essential hypertensio n I10 ; Elevated cholesterol E78.00 and Acute non-recurrent maxillary sinusitis J01.00 [facility] [address] [place] [address] Nov, [facility] [id number] [place] [address] Nov, [facility] [address] [place] [address] Oct, [facility] [address] [place] [address] Sep, [facility] [address] [place] [address] Sep, Elevated cholesterol E78.00 ; Benign essential hypertension I10 ; Mild intermittent asthma, unspecified whether complicated J45.20 ; Anxiety F41.9 and Primary osteoarthritis of right foot M19.071 [facility] [id number] [place] [address] Aug, [facility] [id number] [place] [address] Aug, [facility] [id number] [place] [address] Jul, [facility] [id number] [place] [address] December, [facility] [address] [address] Jan, [facility] [id number] [place] [address] Nov, [facility] [address] [address] Nov, [facility] [address] [id number] [place] [address] Mar, [facility] [address] [id number] [place] [address] Mar, [facility] [address] [id number] [place] [address] Mar, [facility] [address] [id number] [place] [address] Mar, [facility] [address] [id number] [place] [address] Aug, [facility] [address] [id number] [place] [address] Aug, [facility] [address] [id number] [place] [address] Jul, [facility] [address] [id number] [place] [address] Jul, [facility] [address] [id number] [place] [address] Jul, [facility] [address] [id number] [place] [address] Jul, [facility] [address] [id number] [place] [address] Jul, [facility] [address] [id number] [place] [address] Jul, [facility] [address] [id number] [place] [address] December, [facility] [address] [id number] [place] [address] Nov, [facility] [address] [id number] [place] [address] Jun, [facility] [address] [id number] [place] [address] Jun, [facility] [address] [id number] [place] [address] Jun, [facility] [address] [id number] [place] [address] Jun, [facility] [address] [id number] [place] [address] May, [facility] [address] [id number] [place] [address] May, [facility] [address] [id number] [place] [address] May, [facility] [address] [id number] [place] [address] May, [facility] [address] [id number] [place] [address] Jan, [facility] [address] [id number] [place] [address] December, [facility] [id number] [place] [address] December, [facility] [address] [id number] [place] [address] December, [facility] [id number] [place] [address] December, [facility] [address] [id number] [place] [address] Sep, [facility] [address] [id number] [place] [address] Aug, [facility] [address] [id number] [place] [address] Aug, [facility] [id number] [place] [address] Jun, [facility] [address] [id number] [place] [address] Jun, [facility] [id number] [place] [address] Jun, [facility] [address] [facility] [id number] [place] [address] Jun, [facility] [address] [facility] [id number] [place] [address] December, IMMUNIZATIONS No Known Immunizations SOCIAL HISTORY Never Assessed REASON FOR VISIT PLAN OF CARE VITAL SIGNS MEDICATIONS Unknown Medications RESULTS No Results PROCEDURES No Known procedures INSTRUCTIONS MEDICATIONS ADMINISTERED No Known Medications MEDICAL (GENERAL) HISTORY Type Description Date Medical History Hx AK Medical History Essential Hypertension Medical History Pure Hypercholesterolemia Medical History Coronary Atherosclerosis of [place] Coron alicia Artery Medical History Obesity Medical History Osteoarthrosis Medical History Allergic Rhinitis Medical History Sleep Apnea Medical History Hypoxia Medical History Hypokalemia Medical History Disorder Lipoid Metabolism Medical History Irritable Bowel Surgical History Heart Cath and Stent Placement 02/2019 Hospitalization History [facility] 02/2019
--- OUTSIDE RECORDS SUMMARY | 2020-03-10 07:56 | XMS REPORT ---
Author Author Renea MCKEON Organization [facility] Address [address] [place] [address] Care Team Providers Care Branch Examiner Name Role Phone ELISHA MCKEON Unavailable PROBLEMS Type Condition ICD9-CM Code OCU26-EV Code Onset Dates Condition S tatus SNOMED Code Problem Bronchitis, not specified as acute or chronic J40 Active 99549997 Problem Dehydration E86.0 Feb, Active 27413 006 Problem Severe obesity (BMI 35.0-39.9) with comorbidity E66.01 Jun, Active 112078582 Problem Other and unspecified noninfectious [place] roenteritis and colitis(558.9) K52.9 Active 255261238 Problem Pure hypercholesterolemia E78.00 Acti ve 705468732 Problem Pneumonia of both lower lobes due to infectious organi sm J18.1 Sep, Active 185953891 Problem Non morbid obesity due to excess calories E66.09 December, Active 800804179 Problem Coronary atherosclerosis of [place] coronary artery I25.10 Active 030148142 Problem Generalized osteoarthrosis, unspecified site M15.9 Active 846674820 Problem Sleep apnea G47.30 Nov, Active 52243 006 Problem Essential hypertension I10 Active 46929616 Problem Mild intermittent asthma, unspecified whether complicated J45.20 Active 602633076 Problem Hypoxia R09.02 Sep, Active 9791544 02 Problem Ischemic cardiomyopathy I25.5 Active 983200419 Problem Arthralgia of right hip M25.551 Feb, Act osmany 512432601 Problem Old myocardial infarction I25.2 Acti ve 1122360 Problem Allergic rhinitis due to other allergen J30.89 Active 56847699 Problem Primary osteoarthritis of right foot M19.071 Active 440182801 Problem Benign essential hypertension I10 Active 6376799 Problem Anxiety F41.9 Active 34615991 ALLERGIES No Information ENCOUNTERS Encounter Location Date Diagnosis [facility] [address] [place] [address] December, UNKNOWN Sep, [facility] [address] [place] [address] Sep, Benign essential hypertensio n I10 and Generalized osteoarthrosis, unspecified site M15.9 [facility] [address] [place] [address] Aug, [facility] [address] [place] [address] Aug, Anxiety F41.9 [facility] [address] [place] [address] Aug, Coronary atherosclerosis of [place] coronary artery I25.10 ; Pure hypercholesterolemia E78.00 ; Severe obesity (BMI 35.0-39.9) with comorbidity E66.01 and Ischemic cardiomyopathy I25.5 [facility] [place] [address] [place] [address] Aug, Pure hypercholesterolemia E7 8.[address] [place] [address] Jul, Anxiety F41.[address] [place] [address] Jul, Acute non-recurrent pansinus itis J01.40 [facility] [address] [facility] [address] [place] [address] Jul, [facility] [address] [place] [address] Jul, [address] [place] [address] Jul, Acute frontal sinusitis, rec urrence not specified J01.10 [facility] [address] [place] [address] Jun, [facility] [address] [place] [address] 08 Jun, [address] [place] [address] Jun, Acute non-recurrent maxillar y sinusitis J01.[address] [place] [address] Jun, [address] [place] [address] May, Coronary atherosclerosis of [place] coronary artery I25.10 ; Pure hypercholesterolemia E78.00 and Benign essential hypertension I10 [address] [place] [address] May, [address] [place] [address] May, [address] [place] [address] May, Encounter for screening mamm ogram for breast cancer Z12.[address] [place] [address] May, Chronic bronchitis, unspecif ied chronic bronchitis type J42 and Hypokalemia E87.[address] [place] [address] Apr, Benign essential hypertensio n I10 [address] [place] [address] Apr, Encounter for screening mamm ogram for breast cancer Z12.31 ; S/P cardiac cath Z98.890 ; Coronary atherosclerosis of [place] coronary artery I25.10 and Chronic bronchitis, unspecified chronic bronchitis type J42 [address] [place] [address] Apr, Benign essential hypertensio n I10 [address] [place] [address] Mar, Benign essential hypertensio n I10 ; Angina pectoris, unstable I20.0 ; Hypoxia R09.02 ; Elevated cholesterol E78.00 and High risk medication use Z79.899 [facility] [address] [place] [address] Mar, Benign essential hypertensio n I10 [facility] [id number] [place] [address] Feb, Elevated cholesterol E78.[address] [place] [address] Feb, Elevated cholesterol E78.00 ; Benign essential hypertension I10 and Mucopurulent chronic bronchitis J41.1 [facility] [id number] [place] [address] Feb, [address] [place] [address] Feb, [address] [place] [address] Jan, Elevated cholesterol E78.00 and Benign essential hypertension I10 [facility] [address] [place] [address] Jan, Acute non-recurrent maxillar y sinusitis J01.00 and Epigastric pain R10.13 [facility] [address] [place] [address] December, Acute non-recurrent maxillar y sinusitis J01.[address] [place] [address] December, [address] [place] [address] Nov, [address] [place] [address] Nov, [address] [place] [address] Nov, Benign essential hypertensio n I10 ; Elevated cholesterol E78.00 and Acute non-recurrent maxillary sinusitis J01.00 [facility] [place] [address] [place] [address] Nov, [facility] [address] [id number] [place] [address] Nov, [facility] [place] [address] [place] [address] Oct, [facility] [place] [address] [place] [address] Sep, [facility] [place] [address] [place] [address] Sep, Elevated cholesterol E78.00 ; Benign essential hypertension I10 ; Mild intermittent asthma, unspecified whether complicated J45.20 ; Anxiety F41.9 and Primary osteoarthritis of right foot M19.071 [facility] [id number] [place] [address] Aug, [facility] [id number] [place] [address] Aug, [facility] [id number] [place] [address] Jul, [facility] [id number] [place] [address] December, [facility] [id number] [place] [address] Jan, [facility] [id number] [place] [address] Nov, [facility] [id number] [place] [address] Nov, [facility] [id number] [place] [address] Mar, [facility] [id number] [place] [address] Mar, [facility] [id number] [place] [address] Mar, [facility] [address] [id number] [place] [address] Mar, [facility] [address] [id number] [place] [address] Aug, [facility] [address] [id number] [place] [address] Aug, [facility] [address] [id number] [place] [address] Jul, [facility] [address] [id number] [place] [address] Jul, [facility] [address] [id number] [place] [address] Jul, [facility] [address] [id number] [place] [address] Jul, [facility] [address] [id number] [place] [address] Jul, [facility] [address] [id number] [place] [address] Jul, [facility] [address] [id number] [place] [address] December, [facility] [address] [id number] [place] [address] Nov, [facility] [address] [id number] [place] [address] Jun, [facility] [address] [id number] [place] [address] Jun, [facility] [address] [id number] [place] [address] Jun, [facility] [address] [id number] [place] [address] Jun, [facility] [address] [id number] [place] [address] May, [facility] [id number] [place] [address] May, [facility] [address] [id number] [place] [address] May, [facility] [id number] [place] [address] May, [facility] [id number] [place] [address] Jan, [facility] [id number] [place] [address] December, [facility] [id number] [place] [address] December, [facility] [id number] [place] [address] December, [facility] [id number] [place] [address] December, [facility] [id number] [place] [address] Sep, [facility] [id number] [place] [address] Aug, [facility] [address] [id number] [place] [address] Aug, [facility] [address] [id number] [place] [address] Jun, [facility] [address] [id number] [place] [address] Jun, [facility] [address] [id number] [place] [address] Jun, [facility] [address] [id number] [place] [address] Jun, [facility] [address] [id number] [place] [address] December, IMMUNIZATIONS No Known Immunizations SOCIAL HISTORY Never Assessed REASON FOR VISIT Controlled Med Refill PLAN OF CARE VITAL SIGNS MEDICATIONS Medication Instructions Dosage Frequency Start Date End Date Duration S tatus Ultram 50 MG Orally 4 times a day 1-2 tablets as needed 6h 28 days Active RESULTS No Results PROCEDURES No Known procedures INSTRUCTIONS MEDICATIONS ADMINISTERED No Known Medications MEDICAL (GENERAL) HISTORY Type Description Date Medical History Hx HI Medical History Essential Hypertension Medical History Pure Hypercholesterolemia Medical History Coronary Atherosclerosis of [place] Coron alicia Artery Medical History Obesity Medical History Osteoarthrosis Medical History Allergic Rhinitis Medical History Sleep Apnea Medical History Hypoxia Medical History Hypokalemia Medical History Disorder Lipoid Metabolism Medical History Irritable Bowel Surgical History Heart Cath and Stent Placement 02/2019 Hospitalization History [facility] 02/2019
--- OUTSIDE RECORDS SUMMARY | 2020-03-10 07:56 | XMS REPORT ---
Author Author Renea AN Organization [facility] Address [address] [place] [address] Care Team Providers Care Bone Char Operator Name Role Phone CASTILLO NA Unavailable PROBLEMS Type Condition ICD9-CM Code UXY77-OR Code Onset Dates Condition S tatus SNOMED Code Problem Other and unspecified noninfectious morena roenteritis and colitis(558.9) K52.9 Active 726212981 Problem Bronchitis, not specified as acute or chronic J40 Active 07431908 Problem Pneumonia of both lower lobes due to infectious organi sm J18.1 Sep, Active 977638514 Problem Severe obesity (BMI 35.0-39.9) with comorbidity E66.01 Jun, Active 874349992 Problem Coronary atherosclerosis of [place] coronary artery I25.10 Active 098699401 Problem Pure hypercholesterolemia E78.00 Acti ve 208131555 Problem Arthralgia of right hip M25.551 Feb, Act osmnay 537074362 Problem Non morbid obesity due to excess calories E66.09 December, Active 334041385 Problem Sleep apnea G47.30 23 Nov, 2008 Active 55540 006 Problem Essential hypertension I10 Active 44894430 Problem Allergic rhinitis due to other allergen J30.89 Active 65016631 Problem Ischemic cardiomyopathy I25.5 Active 124526576 Problem Generalized osteoarthrosis, unspecified site M15.9 Active 324585968 Problem Old myocardial infarction I25.2 Acti ve 5680352 Problem Panlobular emphysema J43.1 Active 2897465 Problem Hypoxia R09.02 Sep, Active 7357008 02 Problem Dehydration E86.0 Feb, Active 67386 006 Problem Primary osteoarthritis of right foot M19.071 Active 850533618 Problem Benign essential hypertension I10 Active 5182352 Problem Anxiety F41.9 Active 37818920 Problem Mild intermittent asthma, unspecified whether complicated J45.20 Active 774666151 ALLERGIES No Information ENCOUNTERS Encounter Location Date Diagnosis [facility] [place] [address] [id number] [place] [address] Mar, [address] [id number] [place] [address] December, Coronary atherosclerosis of [place] coronary artery I25.10 ; Ischemic cardiomyopathy I25.5 ; Generalized osteoarthrosis, unspecified site M15.9 ; Sleep apnea G47.30 and Panlobular emphysema J43.[address] [id number] [place] [address] Nov, [address] [id number] [place] [address] Sep, Anxiety F41.[address] [id number] [place] [address] Sep, [address] [id number] [address] Sep, [address] [id number] [place] [address] Sep, Benign essential hypertensio n I10 and Generalized osteoarthrosis, unspecified site M15.[address] [id number] [place] [address] Aug, [address] 340[id number] [address] Aug, Anxiety F41.[address] [id number] [place] [address] Aug, Coronary atherosclerosis of [place] coronary artery I25.10 ; Pure hypercholesterolemia E78.00 ; Severe obesity (BMI 35.0-39.9) with comorbidity E66.01 and Ischemic cardiomyopathy I25.[address] [id number] [place] [address] Aug, Pure hypercholesterolemia E7 8.[address] 340B [id number] [place] [address] Jul, Anxiety F41.9 [facility] [address] [id number] [place] [address] Jul, Acute non-recurrent pansinus itis J01.40 [facility] [address] [id number] [place] [address] Jul, [facility] [address] [id number] [place] [address] Jul, [facility] [address] [id number] [place] [address] Jul, Acute frontal sinusitis, rec urrence not specified J01.10 [facility] [address] [id number] [place] [address] Jun, [facility] [address] [id number] [place] [address] Jun, [facility] [place] [address] [id number] [place] [address] Jun, Acute non-recurrent maxillar y sinusitis J01.00 [facility] [address] [id number] [place] [address] Jun, [facility] [place] [address] [id number] [place] [address] May, Coronary atherosclerosis of [place] coronary artery I25.10 ; Pure hypercholesterolemia E78.00 and Benign essential hypertension I10 [facility] [address] [id number] [place] [address] May, [facility] [address] [id number] [place] [address] May, [facility] [place] [address] [id number] [place] [address] May, Encounter for screening mamm ogram for breast cancer Z12.31 [facility] [address] [id number] [place] [address] May, Chronic bronchitis, unspecif ied chronic bronchitis type J42 and Hypokalemia E87.[address] 340[address] [id number] [place] [address] Apr, Benign essential hypertensio n I10 [address] 340B [id number] [address] Apr, Encounter for screening mamm ogram for breast cancer Z12.31 ; S/P cardiac cath Z98.890 ; Coronary atherosclerosis of [place] coronary artery I25.10 and Chronic bronchitis, unspecified chronic bronchitis type J42 [address] 340B [id number] [address] Apr, Benign essential hypertensio n I10 [address] 340B [id number], [place] [address] Mar, Benign essential hypertensio n I10 ; Angina pectoris, unstable I20.0 ; Hypoxia R09.02 ; Elevated cholesterol E78.00 and High risk medication use Z79.[address] 340B [id number], [place] [address] Mar, Benign essential hypertensio n I10 [facility] [address] [facility] [id number] [address] [place] [address] Feb, Elevated cholesterol E78.[address] 340B [id number], [place] [address] Feb, Elevated cholesterol E78.00 ; Benign essential hypertension I10 and Mucopurulent chronic bronchitis J41.1 [facility] [address] [facility] [id number] [address] [place] [address] Feb, [address] 340B [id number], [place] [address] Feb, [address] 340B [id number], [place] [address] Jan, Elevated cholesterol E78.00 and Benign essential hypertension I10 [facility] [place] [address] 340B [id number] [place] [address] Jan, Acute non-recurrent maxillar y sinusitis J01.00 and Epigastric pain R10.13 [facility] [place] [address] 340B [id number] [place] [address] December, Acute non-recurrent maxillar y sinusitis J01.00 [facility] [place] [address] 340B [id number] [place] [address] December, [facility] [place] [address] 340B [id number] [place] [address] Nov, [facility] [place] [address]B [id number] [place] [address] Nov, [facility] [place] [address] 340B [id number], [place] [address] Nov, Benign essential hypertensio n I10 ; Elevated cholesterol E78.00 and Acute non-recurrent maxillary sinusitis J01.00 [facility] [place] [address] 340B [id number] [place] [address] Nov, [facility] [address] [facility] [id number] [address] [place] [address] Nov, [facility] [place] [address] 340B [id number], [place] [address] Oct, [facility] [place] [address] 340B [id number], [place] [address] Sep, [facility] [place] [address] 340B [id number], [place] [address] Sep, Elevated cholesterol E78.00 ; Benign essential hypertension I10 ; Mild intermittent asthma, unspecified whether complicated J45.20 ; Anxiety F41.9 and Primary osteoarthritis of right foot M19.071 [facility] [address] [facility] [id number] [address] [place] [address] Aug, [facility] [address] [id number] [address] [place] [address], [place] [address] Aug, [facility] [address] [id number] [address] [place] [address], [place] [address] Jul, [facility] [address] [id number] [address] [place] [address], [place] [address] December, [facility] [address] [id number] [address] [place] [address], [place] [address] Jan, [facility] [address] [id number] [address] [place] [address], [place] [address] Nov, [facility] [address] [id number] [address] [place] [address], [place] [address] Nov, [facility] [address] [id number] [address] [place] [address], [place] [address] Mar, [facility] [address] [id number] [address] [place] [address], [place] [address] Mar, [facility] [address] [id number] [address] [place] [address], [place] [address] Mar, [facility] [address] [id number] [address] [place] [address], [place] [address] Mar, [facility] [address] [id number] [address] [place] [address], [place] [address] Aug, [facility] [address] [id number] [address] [place] [address], [place] [address] Aug, [facility] [address] [id number] [address] [place] [address], [place] [address] Jul, [facility] [address] [id number] [address] [place] [address], [place] [address] Jul, [facility] [address] [id number] [address] [place] [address], [place] [address] Jul, [facility] [address] [id number] [address] [place] [address], [place] [address] Jul, [facility] [address] [id number] [address] [place] [address], [place] [address] Jul, [facility] [address] [id number] [address] [place] [address], [place] [address] Jul, [facility] [address] [id number] [address] [place] [address], [place] [address] December, [facility] [address] [id number] [address] [place] [address], [place] [address] Nov, [facility] [address] [id number] [address] [place] [address], [place] [address] Jun, [facility] [address] [id number] [address] [place] [address], [place] [address] Jun, [facility] [address] [id number] [address] [place] [address], [place] [address] Jun, [facility] [address] [id number] [address] [place] [address], [place] [address] Jun, [facility] [address] [id number] [address] [place] [address], [place] [address] May, [facility] [address] [id number] [address] [place] [address], [place] [address] May, [facility] [address] [id number] [address] [place] [address], [place] [address] May, [facility] [address] [id number] [address] [place] [address], [place] [address] May, [facility] [address] [id number] [address] [place] [address], [place] [address] Jan, [facility] [address] [id number] [address] [place] [address], [place] [address] December, [facility] [address] [id number] [address] [place] [address], [place] [address] December, [facility] [address] [id number] [address] [place] [address] December, [facility] [address] [id number] [address] [place] [address] December, [facility] [address] [id number] [address] [place] [address] Sep, [facility] [address] [id number] [address] [place] [address] Aug, [facility] [address] [id number] [address] [place] [address] Aug, [facility] [address] [id number] [address] [place] [address] Jun, [facility] [address] [id number] [address] [place] [address] Jun, [facility] [address] [id number] [address] [place] [address] Jun, [facility] [address] [id number] [address] [place] [address] Jun, [facility] [address] [id number] [address] [place] [address] December, IMMUNIZATIONS No Known Immunizations SOCIAL HISTORY Never Assessed REASON FOR VISIT PLAN OF CARE VITAL SIGNS MEDICATIONS Unknown Medications RESULTS No Results PROCEDURES No Known procedures INSTRUCTIONS MEDICATIONS ADMINISTERED No Known Medications MEDICAL (GENERAL) HISTORY Type Description Date Medical History Hx LA Medical History Essential Hypertension Medical History Pure Hypercholesterolemia Medical History Coronary Atherosclerosis of [place] Coron alicia Artery Medical History Obesity Medical History Osteoarthrosis Medical History Allergic Rhinitis Medical History Sleep Apnea Medical History Hypoxia Medical History Hypokalemia Medical History Disorder Lipoid Metabolism Medical History Irritable Bowel Surgical History Heart Cath and Stent Placement 02/2019 Hospitalization History [facility] 02/2019
--- OUTSIDE RECORDS SUMMARY | 2020-03-10 07:56 | XMS REPORT ---
Author Author Renea AN Organization [facility] Address [address] [place] [address] Care Team Providers Care Card Placer Name Role Phone CASTILLO AN Unavailable PROBLEMS Type Condition ICD9-CM Code OKG72-TH Code Onset Dates Condition S tatus SNOMED Code Problem Bronchitis, not specified as acute or chronic J40 Active 96556097 Problem Dehydration E86.0 Feb, Active 13244 006 Problem Severe obesity (BMI 35.0-39.9) with comorbidity E66.01 Jun, Active 631566395 Problem Other and unspecified noninfectious morena roenteritis and colitis(558.9) K52.9 Active 036163439 Problem Pure hypercholesterolemia E78.00 Acti ve 046979234 Problem Pneumonia of both lower lobes due to infectious organi sm J18.1 Sep, Active 357012295 Problem Non morbid obesity due to excess calories E66.09 December, Active 417076600 Problem Coronary atherosclerosis of [place] coronary artery I25.10 Active 675067089 Problem Generalized osteoarthrosis, unspecified site M15.9 Active 235824364 Problem Sleep apnea G47.30 Nov, Active 29716 006 Problem Essential hypertension I10 Active 31144951 Problem Mild intermittent asthma, unspecified whether complicated J45.20 Active 619985747 Problem Hypoxia R09.02 Sep, Active 2370002 02 Problem Ischemic cardiomyopathy I25.5 Active 579729185 Problem Arthralgia of right hip M25.551 Feb, Act osmany 361928026 Problem Old myocardial infarction I25.2 Acti ve 9710256 Problem Allergic rhinitis due to other allergen J30.89 Active 73794805 Problem Primary osteoarthritis of right foot M19.071 Active 677792586 Problem Benign essential hypertension I10 Active 1012485 Problem Anxiety F41.9 Active 84223528 ALLERGIES No Information ENCOUNTERS Encounter Location Date Diagnosis [address] [id number] [place] [address] December, [address] [id number] [place] [address] Sep, Anxiety F41.[address] [id number] [place] [address] Sep, [address] [id number] [address] Sep, [address] [id number] [place] [address] Sep, Benign essential hypertensio n I10 and Generalized osteoarthrosis, unspecified site M15.[address] [id number] [place] [address] Aug, [address] [id number], [place] [address] Aug, Anxiety F41.[address] [id number], [place] [address] Aug, Coronary atherosclerosis of alturas coronary artery I25.10 ; Pure hypercholesterolemia E78.00 ; Severe obesity (BMI 35.0-39.9) with comorbidity E66.01 and Ischemic cardiomyopathy I25.[address] [id number], [place] [address] Aug, Pure hypercholesterolemia E7 8.[address] [id number] [place] [address] Jul, Anxiety F41.[address] [id number], [place] [address] Jul, Acute non-recurrent pansinus itis J01.40 [facility] [address] [id number] [place] [address] Jul, [address] [id number], [place] [address] Jul, [facility] [place] [address] [id number] [place] [address] Jul, Acute frontal sinusitis, rec urrence not specified J01.10 [facility] [place] [address] [id number] [place] [address] Jun, [facility] [address] [id number] [place] [address] Jun, [facility] [place] [address] [id number] [place] [address] Jun, Acute non-recurrent maxillar y sinusitis J01.00 [facility] [address] [id number] [place] [address] Jun, [facility] ANILA [address] [id number] [place] [address] May, Coronary atherosclerosis of alturas coronary artery I25.10 ; Pure hypercholesterolemia E78.00 and Benign essential hypertension I10 [facility] [address] [id number] [place] [address] May, [facility] [address] [id number] [place] [address] May, [facility] [address] [id number] [place] [address] May, Encounter for screening mamm ogram for breast cancer Z12.31 [facility] [place] [address] [id number] [place] [address] May, Chronic bronchitis, unspecif ied chronic bronchitis type J42 and Hypokalemia E87.6 [facility] [address] [id number] [place] [address] Apr, Benign essential hypertensio n I10 [facility] [place] [address] [id number] [place] [address] Apr, Encounter for screening mamm ogram for breast cancer Z12.31 ; S/P cardiac cath Z98.890 ; Coronary atherosclerosis of [place] coronary artery I25.10 and Chronic bronchitis, unspecified chronic bronchitis type J42 [address] [id number] [place] [address] Apr, Benign essential hypertensio n I10 [address] 340[address] [id number] [place] [address] Mar, Benign essential hypertensio n I10 ; Angina pectoris, unstable I20.0 ; Hypoxia R09.02 ; Elevated cholesterol E78.00 and High risk medication use Z79.[address] [id number], [place] [address] Mar, Benign essential hypertensio n I10 [facility] [address] [facility] [id number] [place] [address] Feb, Elevated cholesterol E78.[address] [id number], [place] [address] Feb, Elevated cholesterol E78.00 ; Benign essential hypertension I10 and Mucopurulent chronic bronchitis J41.1 [facility] [address] [facility] [id number] [place] [address] Feb, [address] [id number] [place] [address] Feb, [address] 340[address] [id number], [place] [address] Jan, Elevated cholesterol E78.00 and Benign essential hypertension I10 [address] [id number] [place] [address] Jan, Acute non-recurrent maxillar y sinusitis J01.00 and Epigastric pain R10.[address] 340[address] [id number] [place] [address] December, Acute non-recurrent maxillar y sinusitis J01.[address] [id number] [place] [address] December, [facility] [place] [address] [id number] [place] [address] Nov, [facility] [place] [address] [id number] [place] [address] Nov, [facility] [place] [address] 340B [id number] [place] [address] Nov, Benign essential hypertensio n I10 ; Elevated cholesterol E78.00 and Acute non-recurrent maxillary sinusitis J01.00 [facility] ANILA [place] [address] 340[address] [id number] [place] [address] Nov, [facility] [address] [facility] [id number] [address] [place] [address] Nov, [facility] [place] [address] [id number] [place] [address] Oct, [facility] [place] [address] [id number] [place] [address] Sep, [facility] [place] [address] 340[address] [id number] [place] [address] Sep, Elevated cholesterol E78.00 ; Benign essential hypertension I10 ; Mild intermittent asthma, unspecified whether complicated J45.20 ; Anxiety F41.9 and Primary osteoarthritis of right foot M19.071 [facility] [address] [facility] [id number] [address] [place] [address] Aug, [facility] [address] [facility] [id number] [address] [place] [address] Aug, [facility] [address] [facility] [id number] [address] [place] [address] Jul, [facility] [address] [facility] [id number] [address] [place] [address] December, [facility] [address] [facility] [id number] [address] [place] [address] Jan, [facility] [address] [id number] [address] [place] [address], [place] [address] Nov, [facility] [address] [id number] [address] [place] [address], [place] [address] Nov, [facility] [address] [id number] [address] [place] [address], [place] [address] Mar, [facility] [address] [id number] [address] [place] [address], [place] [address] Mar, [facility] [address] [id number] [address] [place] [address], [place] [address] Mar, [facility] [address] [id number] [address] [place] [address], [place] [address] Mar, [facility] [address] [id number] [address] [place] [address], [place] [address] Aug, [facility] [address] [id number] [address] [place] [address], [place] [address] Aug, [facility] [address] [id number] [address] [place] [address], [place] [address] Jul, [facility] [address] [id number] [address] [place] [address], [place] [address] Jul, [facility] [address] [id number] [address] [place] [address], [place] [address] Jul, [facility] [address] [id number] [address] [place] [address], [place] [address] Jul, [facility] [address] [id number] [address] [place] [address], [place] [address] Jul, [facility] [address] [id number] [address] [place] [address], [place] [address] Jul, [facility] [address] [id number] [address] [place] [address], [place] [address] December, [facility] [address] [id number] [address] [place] [address], [place] [address] Nov, [facility] [address] [id number] [address] [place] [address], [place] [address] Jun, [facility] [address] [id number] [address] [place] [address], [place] [address] Jun, [facility] [address] [id number] [address] [place] [address], [place] [address] Jun, [facility] [address] [id number] [address] [place] [address], [place] [address] Jun, [facility] [address] [id number] [address] [place] [address], [place] [address] May, [facility] [address] [id number] [address] [place] [address], [place] [address] May, [facility] [address] [id number] [address] [place] [address], [place] [address] May, [facility] [address] [id number] [address] [place] [address], [place] [address] May, [facility] [address] [id number] [address] [place] [address], [place] [address] Jan, [facility] [address] [id number] [address] [place] [address], [place] [address] December, [facility] [address] [id number] [address] [place] [address], [place] [address] December, [facility] [address] [id number] [address] [place] [address], [place] [address] December, [facility] [address] [id number] [address] [place] [address], [place] [address] December, [facility] [address] [id number] [address] [place] [address], [place] [address] Sep, [facility] [address] [id number] [address] [place] [address], [place] [address] Aug, [facility] [address] [id number] [address] [place] [address] Aug, [facility] [address] [id number] [address] [place] [address] Jun, [facility] [address] [id number] [address] [place] [address] Jun, [facility] [address] [id number] [address] [place] [address] Jun, [facility] [address] [id number] [address] [place] [address] Jun, [facility] [address] [facility] [id number] [address] [place] [address] December, IMMUNIZATIONS No Known Immunizations SOCIAL HISTORY Never Assessed REASON FOR VISIT PLAN OF CARE VITAL SIGNS Height 62 in 2014-04-08 Weight 175.4 lbs 2014-04-08 Temperature 98 degrees Fahrenheit 2014-04-08 Heart Rate 64 bpm 2014-04-08 Respiratory Rate 20 2014-04-08 Blood pressure systolic 144 mmHg 2014-04-08 Blood pressure diastolic 90 mmHg 2014-04-08 MEDICATIONS Unknown Medications RESULTS No Results PROCEDURES No Known procedures INSTRUCTIONS MEDICATIONS ADMINISTERED No Known Medications MEDICAL (GENERAL) HISTORY Type Description Date Medical History Hx CA Medical History Essential Hypertension Medical History Pure Hypercholesterolemia Medical History Coronary Atherosclerosis of [place] Coron alicia Artery Medical History Obesity Medical History Osteoarthrosis Medical History Allergic Rhinitis Medical History Sleep Apnea Medical History Hypoxia Medical History Hypokalemia Medical History Disorder Lipoid Metabolism Medical History Irritable Bowel Surgical History Heart Cath and Stent Placement 02/2019 Hospitalization History [facility] 02/2019
--- OUTSIDE RECORDS SUMMARY | 2020-03-10 07:57 | XMS REPORT | Continuity of Care Document ---
Author Organization Unknown Address Unknown Phone Unavailable Allergies Active Description Code Type Severity Reaction Onset Reported/Identified Relationship to Patient Clinical Status Yes sulfa drug Drug Allergy 12/12/2009 Yes No Allergy Information Available [id number] Drug Allergy Unknown N/A 019 Yes amoxicillin [id number] Drug Aller gy Unknown N/A 03/04/2020 Yes citalopram [id number] Drug Allerg y Unknown N/A 03/04/2020 Yes Sulfa (Sulfonamide Antibiotics) [id number] Drug Allergy Unknown N/A 020 Medications There is no data. Problems Date Dx Coded Attending Type Code Diagnosis Diagnosed By 12/12/2009 CASTILLO AN MD 272.4 HYPERLIPIDEMIA HYPERLIPOPROTEINEMIAS (Old Classification) 12/12/2009 CASTILLO AN MD 401.1 ESSENTIAL HYPERTENSION BENIGN 12/12/2009 CASTILLO AN MD 272.4 HYPERLIPIDEMIA HYPERLIPOPROTEINEMIAS (Old Classification) 12/12/2009 CASTILLO AN MD 401.1 ESSENTIAL HYPERTENSION BENIGN 12/12/2009 CASTILLO AN MD 272.4 HYPERLIPIDEMIA HYPERLIPOPROTEINEMIAS (Old Classification) 12/12/2009 CASTILLO AN MD 401.1 ESSENTIAL HYPERTENSION BENIGN 12/12/2009 CASTILLO AN MD 272.4 HYPERLIPIDEMIA HYPERLIPOPROTEINEMIAS (Old Classification) 12/12/2009 CASTILLO AN MD 401.1 ESSENTIAL HYPERTENSION BENIGN 12/29/2009 CASTILLO AN MD 380.1 0 Otitis Externa 12/29/2009 CASTILLO AN MD 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 12/29/2009 CASTILLO NA MD 380.1 0 Otitis Externa 12/29/2009 CASTILLO AN MD 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 12/29/2009 CASTILLO AN MD 380.1 0 Otitis Externa 12/29/2009 CASTILLO AN MD 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 12/29/2009 CASTILLO AN MD 380.1 0 Otitis Externa 12/29/2009 CASTILLO AN MD 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 06/29/2011 CASTILLO AN MD 300.0 0 ANXIETY STATE UNSPECIFIED 06/29/2011 CASTILLO AN MD 716.9 0 UNSPECIFIED ARTHROPATHY SITE UNSPECIFIED 06/29/2011 CASTILLO AN MD 300.0 0 ANXIETY STATE UNSPECIFIED 06/29/2011 CASTILLO AN MD 716.9 0 UNSPECIFIED ARTHROPATHY SITE UNSPECIFIED 06/29/2011 CASTILLO AN MD 300.0 0 ANXIETY STATE UNSPECIFIED 06/29/2011 CASTILLO AN MD 716.9 0 UNSPECIFIED ARTHROPATHY SITE UNSPECIFIED 06/29/2011 CASTILLO AN MD 300.0 0 ANXIETY STATE UNSPECIFIED 06/29/2011 CASTILLO AN MD 716.9 0 UNSPECIFIED ARTHROPATHY SITE UNSPECIFIED 07/20/2013 CASTILLO AN MD V04.8 1 FLU SHOT 07/20/2013 CASTILLO AN MD V04.8 1 FLU SHOT 01/15/2019 MIKE LOVE, ELISHA Velarde Ot J01.00 ACUTE MAXILLARY SINUSITIS, UNSPECIFIED 01/15/2019 MIKE LOVE, ELISHA Velarde Ot R10.13 EPIGASTRIC PAIN 01/26/2019 MIKE LOVE, ELISHA Velarde Ot J01.00 ACUTE MAXILLARY SINUSITIS, UNSPECIFIED 01/26/2019 MIKE LOVE, ELISHA Velarde Ot R10.13 EPIGASTRIC PAIN 06/28/2019 SHAUNNA MESA APRN Ot G47.10 HYPERSOMNIA, UNSPECIFIED 06/28/2019 SHAUNNA MESA APRN Ot G47.33 OBSTRUCTIVE SLEEP APNEA (ADULT) (PEDIATR 06/28/2019 SHAUNNA MESA APRN Ot G47.36 SLEEP RELATED HYPOVENTILATION IN CONDITI 06/28/2019 SHAUNNA MESA APRN Ot J44.9 CHRONIC OBSTRUCTIVE PULMONARY DISEASE, U 06/28/2019 SHAUNNA MESA APRN Ot J98.4 OTHER DISORDERS OF LUNG 06/28/2019 SHAUNNA MESA APRN Ot 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 07/04/2019 SHAUNNA MESA APRN Ot M79.604 PAIN IN RIGHT LEG 07/04/2019 MIKE LOVE, ELISHA K Ot J01.00 ACUTE MAXILLARY SINUSITIS, UNSPECIFIED 07/04/2019 MIKE LOVE, ELISHA Velarde Ot R10.13 EPIGASTRIC PAIN 07/04/2019 SHANDA MESAINE Sammie SENIOR CONTROLS ENGINEER Ot G47.10 HYPERSOMNIA, UNSPECIFIED 07/04/2019 BONITASHANDA JOHNINE E SENIOR CONTROLS ENGINEER Ot G47.33 OBSTRUCTIVE SLEEP APNEA (ADULT) (PEDIATR 07/04/2019 BONITASHANDA JOHNINE E SENIOR CONTROLS ENGINEER Ot G47.36 SLEEP RELATED HYPOVENTILATION IN CONDITI 07/04/2019 BNOITASHANDA JOHNINE E SENIOR CONTROLS ENGINEER Ot J44.9 CHRONIC OBSTRUCTIVE PULMONARY DISEASE, U 07/04/2019 BONITASHANDA JOHNINE E SENIOR CONTROLS ENGINEER Ot J98.4 OTHER DISORDERS OF LUNG 07/04/2019 BONITASHANDA JOHNINE E SENIOR CONTROLS ENGINEER Ot 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 07/04/2019 SHANDA MESAINE Sammie SENIOR CONTROLS ENGINEER Ot M79.604 PAIN IN RIGHT LEG 07/04/2019 SHAUNNA MESA E SENIOR CONTROLS ENGINEER Ot G47.33 OBSTRUCTIVE SLEEP APNEA (ADULT) (PEDIATR 07/06/2019 SHANDA MESAINE E SENIOR CONTROLS ENGINEER Ot G47.10 HYPERSOMNIA, UNSPECIFIED 07/06/2019 BONITASHANDA JOHNINE Sammie SENIOR CONTROLS ENGINEER Ot G47.33 OBSTRUCTIVE SLEEP APNEA (ADULT) (PEDIATR 07/06/2019 SHANDA MESAINE E SENIOR CONTROLS ENGINEER Ot G47.36 SLEEP RELATED HYPOVENTILATION IN CONDITI 07/06/2019 SHAUNNA MESA SENIOR CONTROLS ENGINEER Ot J44.9 CHRONIC OBSTRUCTIVE PULMONARY DISEASE, U 07/06/2019 SHANDA MESAINE Sammie SENIOR CONTROLS ENGINEER Ot J98.4 OTHER DISORDERS OF LUNG 07/06/2019 SHAUNNA MESA SENIOR CONTROLS ENGINEER Ot 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 9 ANXIETY DISORDER, UNSPECIFIED 07/26/2019 AVNI BALES MD Ot I25. 2 OLD MYOCARDIAL INFARCTION 07/26/2019 AVNI BALES MD Ot J06. 9 ACUTE UPPER RESPIRATORY INFECTION, UNSPE 07/26/2019 AVNI BALES MD Ot J44. 9 CHRONIC OBSTRUCTIVE PULMONARY DISEASE, U 07/26/2019 AVNI BALES MD J Ot R11. 2 NAUSEA WITH VOMITING, UNSPECIFIED 07/26/2019 AMAIRANI LOVE, AVNI J Ot Z90.710 ACQUIRED ABSENCE OF BOTH CERVIX AND UTER 07/26/2019 AVNI BALES MD J Ot Z90. 89 ACQUIRED ABSENCE OF OTHER ORGANS 07/30/2019 AVNI BALES MD J Ot F41. 9 ANXIETY DISORDER, UNSPECIFIED 07/30/2019 BRANNON BALES MDUS J Ot I25. 2 OLD MYOCARDIAL INFARCTION 07/30/2019 BRANNON BALES MDUS J Ot J06. 9 ACUTE UPPER RESPIRATORY INFECTION, UNSPE 07/30/2019 AVNI BALES MD Ot J44. 9 CHRONIC OBSTRUCTIVE PULMONARY DISEASE, U 07/30/2019 AVNI BALES MD J Ot R11. 2 NAUSEA WITH VOMITING, UNSPECIFIED 07/30/2019 AVNI BALES MD Ot Z90.710 ACQUIRED ABSENCE OF BOTH CERVIX AND UTER 07/30/2019 AVNI BALES MD J Ot Z90. 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 07/31/2019 SHAUNNA MESA APRN Ot G47.33 OBSTRUCTIVE SLEEP APNEA (ADULT) (PEDIATR 08/16/2019 ELSIHA MCKEON MD Ot J01.00 ACUTE MAXILLARY SINUSITIS, UNSPECIFIED 08/16/2019 ELISHA MCKEON MD Ot R10.13 EPIGASTRIC PAIN 08/16/2019 BONITA, SHAUNNA E SENIOR CONTROLS ENGINEER Ot G47.10 HYPERSOMNIA, UNSPECIFIED 08/16/2019 BONITA, SHAUNNA E SENIOR CONTROLS ENGINEER Ot G47.33 OBSTRUCTIVE SLEEP APNEA (ADULT) (PEDIATR 08/16/2019 BONITA, SHAUNNA E SENIOR CONTROLS ENGINEER Ot G47.36 SLEEP RELATED HYPOVENTILATION IN CONDITI 08/16/2019 BONITA, SHAUNNA E SENIOR CONTROLS ENGINEER Ot J44.9 CHRONIC OBSTRUCTIVE PULMONARY DISEASE, U 08/16/2019 BONITA, SHAUNNA E SENIOR CONTROLS ENGINEER Ot J98.4 OTHER DISORDERS OF LUNG 08/16/2019 BONITA, SHAUNNA E SENIOR CONTROLS ENGINEER Ot 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 08/16/2019 BONITA, SHAUNNA E SENIOR CONTROLS ENGINEER Ot R06.00 DYSPNEA, UNSPECIFIED 08/16/2019 BONITA, SHAUNNA E SENIOR CONTROLS ENGINEER Ot G47.33 OBSTRUCTIVE SLEEP APNEA (ADULT) (PEDIATR 08/16/2019 MIKE LOVE, ELISHA Velarde Ot J01.00 ACUTE MAXILLARY SINUSITIS, UNSPECIFIED 08/16/2019 MIKE LOVE, ELISHA K Ot R10.13 EPIGASTRIC PAIN 08/16/2019 BONITA, SHAUNNA E SENIOR CONTROLS ENGINEER Ot G47.10 HYPERSOMNIA, UNSPECIFIED 08/16/2019 BONITA, SHAUNNA E SENIOR CONTROLS ENGINEER Ot G47.33 OBSTRUCTIVE SLEEP APNEA (ADULT) (PEDIATR 08/16/2019 BONITA, SHAUNNA E SENIOR CONTROLS ENGINEER Ot G47.36 SLEEP RELATED HYPOVENTILATION IN CONDITI 08/16/2019 BONITA, SHAUNNA E SENIOR CONTROLS ENGINEER Ot J44.9 CHRONIC OBSTRUCTIVE PULMONARY DISEASE, U 08/16/2019 BONITA, SHAUNNA E SENIOR CONTROLS ENGINEER Ot J98.4 OTHER DISORDERS OF LUNG 08/16/2019 BONITA, SHAUNNA E SENIOR CONTROLS ENGINEER Ot 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 08/16/2019 BONITA, SHAUNNA E SENIOR CONTROLS ENGINEER Ot R06.00 DYSPNEA, UNSPECIFIED 08/16/2019 BONITA, SHAUNNA E SENIOR CONTROLS ENGINEER Ot G47.33 OBSTRUCTIVE SLEEP APNEA (ADULT) (PEDIATR 08/17/2019 BONITA, SHAUNNA E SENIOR CONTROLS ENGINEER Ot R06.00 DYSPNEA, UNSPECIFIED 08/18/2019 BONITA, SHAUNNA E SENIOR CONTROLS ENGINEER Ot G47.10 HYPERSOMNIA, UNSPECIFIED 08/18/2019 BONITA, SHAUNNA E SENIOR CONTROLS ENGINEER Ot G47.33 OBSTRUCTIVE SLEEP APNEA (ADULT) (PEDIATR 08/18/2019 BONITA, SHAUNNA E SENIOR CONTROLS ENGINEER Ot G47.36 SLEEP RELATED HYPOVENTILATION IN CONDITI 08/18/2019 BONITA, SHAUNNA E SENIOR CONTROLS ENGINEER Ot J44.9 CHRONIC OBSTRUCTIVE PULMONARY DISEASE, U 08/18/2019 BONITA, SHAUNNA E SENIOR CONTROLS ENGINEER Ot J98.4 OTHER DISORDERS OF LUNG 08/21/2019 BONITA, SHAUNNA E SENIOR CONTROLS ENGINEER Ot G47.10 HYPERSOMNIA, UNSPECIFIED 08/21/2019 BONITA, SHAUNNA E SENIOR CONTROLS ENGINEER Ot G47.33 OBSTRUCTIVE SLEEP APNEA (ADULT) (PEDIATR 08/21/2019 BONITA, SHAUNNA E SENIOR CONTROLS ENGINEER Ot G47.36 SLEEP RELATED HYPOVENTILATION IN CONDITI 08/21/2019 BONITA, SHAUNNA E SENIOR CONTROLS ENGINEER Ot J44.9 CHRONIC OBSTRUCTIVE PULMONARY DISEASE, U 08/21/2019 BONITA, SHAUNNA E SENIOR CONTROLS ENGINEER Ot J98.4 OTHER DISORDERS OF LUNG 08/21/2019 BONITA, SHAUNNA E SENIOR CONTROLS ENGINEER Ot J44.9 CHRONIC OBSTRUCTIVE PULMONARY DISEASE, U 08/21/2019 BONITA, SHAUNNA E SENIOR CONTROLS ENGINEER Ot J98.4 OTHER DISORDERS OF LUNG 08/21/2019 BONITA, SHAUNNA E SENIOR CONTROLS ENGINEER Ot M79.604 PAIN IN RIGHT LEG 08/21/2019 BONITA, SHAUNNA E SENIOR CONTROLS ENGINEER Ot R06.00 DYSPNEA, UNSPECIFIED 08/23/2019 BONITA, SHAUNNA E SENIOR CONTROLS ENGINEER Ot G47.10 HYPERSOMNIA, UNSPECIFIED 08/23/2019 BONITA, SHAUNNA E SENIOR CONTROLS ENGINEER Ot G47.33 OBSTRUCTIVE SLEEP APNEA (ADULT) (PEDIATR 08/23/2019 BONITA, SHAUNNA E SENIOR CONTROLS ENGINEER Ot G47.36 SLEEP RELATED HYPOVENTILATION IN CONDITI 08/23/2019 BONITA, SHAUNNA E SENIOR CONTROLS ENGINEER Ot J44.9 CHRONIC OBSTRUCTIVE PULMONARY DISEASE, U 08/23/2019 BONITA, SHAUNNA E SENIOR CONTROLS ENGINEER Ot J98.4 OTHER DISORDERS OF LUNG 09/11/2019 MIKE LOVE, ELISHA Velarde Ot J01.00 ACUTE MAXILLARY SINUSITIS, UNSPECIFIED 09/11/2019 MIKE LOVE, ELISHA Velarde Ot R10.13 EPIGASTRIC PAIN 09/11/2019 BONITA, SHAUNNA E SENIOR CONTROLS ENGINEER Ot G47.10 HYPERSOMNIA, UNSPECIFIED 09/11/2019 BONITA, SHAUNNA E SENIOR CONTROLS ENGINEER Ot G47.33 OBSTRUCTIVE SLEEP APNEA (ADULT) (PEDIATR 09/11/2019 SHANDA MESAINE E SENIOR CONTROLS ENGINEER Ot G47.36 SLEEP RELATED HYPOVENTILATION IN CONDITI 09/11/2019 SHANDA MESAINE E SENIOR CONTROLS ENGINEER Ot J44.9 CHRONIC OBSTRUCTIVE PULMONARY DISEASE, U 09/11/2019 SHANDA MESAINE E SENIOR CONTROLS ENGINEER Ot J98.4 OTHER DISORDERS OF LUNG 09/11/2019 BONITA, SHAUNNA E SENIOR CONTROLS ENGINEER Ot 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 09/11/2019 BONITA, SHAUNNA E SENIOR CONTROLS ENGINEER Ot J44.9 CHRONIC OBSTRUCTIVE PULMONARY DISEASE, U 09/11/2019 BONITA, SHAUNNA E SENIOR CONTROLS ENGINEER Ot J98.4 OTHER DISORDERS OF LUNG 09/11/2019 BONITA SHAUNNA E SENIOR CONTROLS ENGINEER Ot M79.604 PAIN IN RIGHT LEG 09/11/2019 BONITA, SHAUNNA E SENIOR CONTROLS ENGINEER Ot R06.00 DYSPNEA, UNSPECIFIED 09/13/2019 SHANDA MESAINE E SENIOR CONTROLS ENGINEER Ot G47.36 SLEEP RELATED HYPOVENTILATION IN CONDITI 09/13/2019 BONITA, SHAUNNA E SENIOR CONTROLS ENGINEER Ot J98.4 OTHER DISORDERS OF LUNG 09/13/2019 SHANDA MESAINE E SENIOR CONTROLS ENGINEER Ot R06.00 DYSPNEA, UNSPECIFIED 10/08/2019 BONITA, SHAUNNA E SENIOR CONTROLS ENGINEER Ot G47.36 SLEEP RELATED HYPOVENTILATION IN CONDITI 10/08/2019 BONITA, SHAUNNA E SENIOR CONTROLS ENGINEER Ot J98.4 OTHER DISORDERS OF LUNG 10/08/2019 BONITA, SHAUNNA E SENIOR CONTROLS ENGINEER Ot R06.00 DYSPNEA, UNSPECIFIED 10/18/2019 BONITA, SHAUNNA E SENIOR CONTROLS ENGINEER Ot J44.9 CHRONIC OBSTRUCTIVE PULMONARY DISEASE, U 10/18/2019 BONITA, SHAUNNA E SENIOR CONTROLS ENGINEER Ot J98.4 OTHER DISORDERS OF LUNG 10/18/2019 BONITA SHAUNNA E SENIOR CONTROLS ENGINEER Ot M79.604 PAIN IN RIGHT LEG 10/18/2019 BONITA, SHAUNNA E SENIOR CONTROLS ENGINEER Ot R06.00 DYSPNEA, UNSPECIFIED Procedures Code Description [place] [address] ROUT INE VENIPUNCTURE 06/13/2012 42820 CMP 06/13/2012 42571 LIPI D PANEL 06/13/20127627768 GF R CALC (RESULT ONLY) 06/13/2012 55330 ROUT INE VENIPUNCTURE 12/12/2012 48204 CMP 12/12/2012 55465 LIPI D PANEL 12/12/20121856627 GF R CALC (RESULT ONLY) 12/12/2012 G0008 FLU ADMINISTRATION (MEDICARE ONLY) 07/23/2013 96197 ROUT INE VENIPUNCTURE 04/05/20143023254 GF R CALC (RESULT ONLY) 04/05/2014 13151 CMP 04/05/2014 25743 LIPI D PANEL 04/05/2014 Results Test Result Range LIPID PANEL - 10/11/18 08:00 CHOLESTEROL, TOTAL 171 mg/dL <200 HDL CHOLESTEROL 55 mg/dL >50 TRIGLYCERIDES 121 mg/dL <150 LDL-CHOLESTEROL 94 mg/dL (calc) NRG CHOL/HDLC RATIO 3.1 (calc) <5.0 NON HDL CHOLESTEROL 116 mg/dL (calc) <13 0 CMP - 10/11/18 08:00 GLUCOSE 87 mg/dL 65-99 UREA NITROGEN (BUN) 14 mg/dL 7-25 CREATININE 0.66 mg/dL 0.60-0.93 eGFR NON-AFR. CA[place]AN 88 mL/min/1.73m2 > OR = 60 eGFR 102 mL/min/1.73m2 > OR = 60 BUN/CREATININE RATIO NOT APPLICABLE (calc) 6-22 SODIUM 143 mmol/L 135-146 POTASSIUM 3.9 mmol/L 3.5-5.3 CHLORIDE 108 mmol/L 98-110 CARBON DIOXIDE 25 mmol/L 20-32 CALCIUM 9.2 mg/dL 8.6-10.4 PROTEIN, TOTAL 6.8 g/dL 6.1-8.1 ALBUMIN 3.9 g/dL 3.6-5.1 GLOBULIN 2.9 g/dL (calc) 1.9-3.7 ALBUMIN/GLOBULIN RATIO 1.3 (calc) 1.0-2. 5 BILIRUBIN, TOTAL 0.6 mg/dL 0.2-1.2 ALKALINE PHOSPHATASE 106 U/L 33-130 AST 15 U/L 10-35 ALT 9 U/L 6-29 CBC w/MANUAL DIFF - 10/11/18 08:00 WHITE BLOOD CELL COUNT TNP Thousand/uL N RG CBC - 04/05/19 11:34 WHITE BLOOD CELL COUNT 9.7 Thousand/uL 3 .8-10.8 RED BLOOD CELL COUNT 4.89 Million/uL 3.8 0-5.10 HEMOGLOBIN 14.8 g/dL 11.7-15.5 HEMATOCRIT 45.9 % 35.0-45.0 MCV 93.9 fL 80.0-100.0 MCH 30.3 pg 27.0-33.0 MCHC 32.2 g/dL 32.0-36.0 RDW 13.2 % 11.0-15.0 PLATELET COUNT 217 Thousand/uL 140-400 MPV 11.7 fL 7.5-12.5 ABSOLUTE NEUTROPHILS 5839 cells/uL 1500- 7800 ABSOLUTE LYMPHOCYTES 2464 cells/uL 850-3 900 ABSOLUTE MONOCYTES 601 cells/uL 200-950 ABSOLUTE EOSINOPHILS 737 cells/uL 15-500 ABSOLUTE BASOPHILS 58 cells/uL 0-200 NEUTROPHILS 60.2 % NRG LYMPHOCYTES 25.4 % NRG MONOCYTES 6.2 % NRG EOSINOPHILS 7.6 % NRG BASOPHILS 0.6 % NRG Complete blood count (CBC) with automate d white blood cell (WBC) differential - 07/26/19 17:15 Blood leukocytes automated count (number/volume) 11.0 10*3/uL 4.3-11.0 Blood erythrocytes automated count (number/volume) 4.66 10*6/uL 4.35-5.85 Venous blood hemoglobin measurement (mass/volume) 14.0 g/dL 11.5-16.0 Blood hematocrit (volume fraction) 43 % 35-52 Automated erythrocyte mean corpuscular volume 92 [ foz_us] 80-99 Automated erythrocyte mean corpuscular h emoglobin (mass per erythrocyte) 30 pg 25-34 Automated erythrocyte mean corpuscular h emoglobin concentration measurement (mass/volume) 33 g/dL 32-36 Automated erythrocyte distribution width ratio 14. 5 % 10.0- 14.5 Automated blood platelet count (count/volume) 206 10*3/uL 130-400 Automated blood platelet mean volume measurement 10.0 [foz_us] 7.4-10.4 Automated blood neutrophils/100 leukocytes 81 % 42-75 Automated blood lymphocytes/100 leukocytes 15 % 12-44 Blood monocytes/100 leukocytes 3 % 0-12 Automated blood eosinophils/100 leukocytes 1 % 0-10 Automated blood basophils/100 leukocytes 0 % 0-10 Blood neutrophils automated count (number/volume) 8.0 10*3 1.8-7.8 Blood lymphocytes automated count (number/volume) 1.5 10*3 1.0-4.0 Blood monocytes automated count (number/volume) 0. 3 10*3 0.0-1.0 Automated eosinophil count 0.1 10*3/uL 0 .0-0.3 Automated blood basophil count (count/volume) 0.0 10*3/uL 0.0-0.1 Comprehensive metabolic panel - 07/26/19 17:15 Serum or plasma sodium measurement (moles/volume) 139 mmol/L 135-145 Serum or plasma potassium measurement (moles/volume) 4.5 mmol/L 3.6-5.0 Serum or plasma chloride measurement (moles/volume) 107 mmol/L 98-107 Carbon dioxide 20 mmol/L 21-32 Serum or plasma anion gap determination (moles/volume) 12 mmol/L 5-14 Serum or plasma urea nitrogen measurement (mass/volume ) 18 mg/dL 7-18 Serum or plasma creatinine measurement (mass/volume) 0.76 mg/dL 0.60-1.30 Serum or plasma urea nitrogen/creatinine mass ratio 24 NRG Serum or plasma creatinine measurement w ith calculation of estimated glomerular filtration rate > NRG Serum or plasma glucose measurement (mass/volume) 112 mg/dL 70-105 Serum or plasma calcium measurement (mass/volume) 9.3 mg/dL 8.5-10.1 Serum or plasma total bilirubin measurement (mass/volu me) 0.5 mg/dL 0.1-1.0 Serum or plasma alkaline phosphatase josué surement (enzymatic activity/volume) 85 U/L 40-136 Serum or plasma aspartate aminotransfera se measurement (enzymatic activity/volume) 28 U/L 5-34 Serum or plasma alanine aminotransferase measurement (enzymatic activity/volume) 25 U/L 0-55 Serum or plasma protein measurement (mass/volume) 7.3 g/dL 6.4-8.2 Serum or plasma albumin measurement (mass/volume) 3.8 g/dL 3.2-4.5 CALCIUM CORRECTED 9.5 mg/dL 8.5-10.1 Arterial blood gas measurement - 0 11:11 Blood pCO2 36 mm[Hg] 35-45 Blood pO2 81 mm[Hg] 79-93 Arterial blood bicarbonate measurement (moles/volume) 22 mmol/L 23-27 Arterial blood base excess by calculation -2.7 mmo l/L -2.5-2.5 Arterial blood oxygen saturation measurement 97 % 94-100 * Inhaled oxygen flow rate 4 L NRG Arterial blood pH measurement with patient temperature correction 7.39 7.37-7.43 Arterial blood carbon dioxide, total measurement (mole s/volume) 22.7 mmol/L 21.0-31.0 Body site RIGHT BRACHIAL NRG Assessment of wrist artery patency prior to arterial p uncture POSITIVE NRG Setting of ventilation mode NO NR G Measurement of body temperature 36.2 NRG LIPID PANEL - 08/27/19 09:09 CHOLESTEROL, TOTAL 172 mg/dL <200 HDL CHOLESTEROL 45 mg/dL >50 TRIGLYCERIDES 223 mg/dL <150 LDL-CHOLESTEROL 96 mg/dL (calc) NRG CHOL/HDLC RATIO 3.8 (calc) <5.0 NON HDL CHOLESTEROL 127 mg/dL (calc) <13 0 CMP - 08/27/19 09:09 GLUCOSE 90 mg/dL 65-99 UREA NITROGEN (BUN) 30 mg/dL 7-25 CREATININE 0.73 mg/dL 0.60-0.93 eGFR NON-AFR. [place] 82 mL/min/1.73m2 > OR = 60 eGFR 95 mL/min/1.73m2 > OR = 60 BUN/CREATININE RATIO 41 (calc) 6-22 SODIUM 141 mmol/L 135-146 POTASSIUM 4.2 mmol/L 3.5-5.3 CHLORIDE 107 mmol/L 98-110 CARBON DIOXIDE 25 mmol/L 20-32 CALCIUM 9.1 mg/dL 8.6-10.4 PROTEIN, TOTAL 6.5 g/dL 6.1-8.1 ALBUMIN 3.9 g/dL 3.6-5.1 GLOBULIN 2.6 g/dL (calc) 1.9-3.7 ALBUMIN/GLOBULIN RATIO 1.5 (calc) 1.0-2. 5 BILIRUBIN, TOTAL 0.6 mg/dL 0.2-1.2 ALKALINE PHOSPHATASE 76 U/L 33-130 AST 19 U/L 10-35 ALT 14 U/L 6-29 CBC - 08/27/19 09:09 WHITE BLOOD CELL COUNT 8.3 Thousand/uL 3 .8-10.8 RED BLOOD CELL COUNT 4.70 Million/uL 3.8 0-5.10 HEMOGLOBIN 14.6 g/dL 11.7-15.5 HEMATOCRIT 43.7 % 35.0-45.0 MCV 93.0 fL 80.0-100.0 MCH 31.1 pg 27.0-33.0 MCHC 33.4 g/dL 32.0-36.0 RDW 13.7 % 11.0-15.0 PLATELET COUNT 232 Thousand/uL 140-400 MPV 12.1 fL 7.5-12.5 ABSOLUTE NEUTROPHILS 4897 cells/uL 1500- 7800 ABSOLUTE LYMPHOCYTES 2274 cells/uL 850-3 900 ABSOLUTE MONOCYTES 606 cells/uL 200-950 ABSOLUTE EOSINOPHILS 440 cells/uL 15-500 ABSOLUTE BASOPHILS 83 cells/uL 0-200 NEUTROPHILS 59 % NRG LYMPHOCYTES 27.4 % NRG MONOCYTES 7.3 % NRG EOSINOPHILS 5.3 % NRG BASOPHILS 1.0 % NRG LIPID PANEL - 02/13/20 10:39 CHOLESTEROL, TOTAL 158 mg/dL <200 HDL CHOLESTEROL 42 mg/dL > OR = 50 TRIGLYCERIDES 143 mg/dL <150 LDL-CHOLESTEROL 92 mg/dL (calc) NRG CHOL/HDLC RATIO 3.8 (calc) <5.0 NON HDL CHOLESTEROL 116 mg/dL (calc) <13 0 CMP - 02/13/20 10:39 GLUCOSE 93 mg/dL 65-99 UREA NITROGEN (BUN) 18 mg/dL 7-25 CREATININE 0.70 mg/dL 0.60-0.93 eGFR NON-AFR. [place] 86 mL/min/1.73m2 > OR = 60 eGFR 100 mL/min/1.73m2 > OR = 60 BUN/CREATININE RATIO NOT APPLICABLE (calc) 6-22 SODIUM 146 mmol/L 135-146 POTASSIUM 3.9 mmol/L 3.5-5.3 CHLORIDE 108 mmol/L 98-110 CARBON DIOXIDE 24 mmol/L 20-32 CALCIUM 9.0 mg/dL 8.6-10.4 PROTEIN, TOTAL 6.4 g/dL 6.1-8.1 ALBUMIN 3.8 g/dL 3.6-5.1 GLOBULIN 2.6 g/dL (calc) 1.9-3.7 ALBUMIN/GLOBULIN RATIO 1.5 (calc) 1.0-2. 5 BILIRUBIN, TOTAL 0.5 mg/dL 0.2-1.2 ALKALINE PHOSPHATASE 96 U/L 37-153 AST 15 U/L 10-35 ALT 10 U/L 6-29 CBC - 02/13/20 10:39 WHITE BLOOD CELL COUNT 6.2 Thousand/uL 3 .8-10.8 RED BLOOD CELL COUNT 4.90 Million/uL 3.8 0-5.10 HEMOGLOBIN 14.7 g/dL 11.7-15.5 HEMATOCRIT 45.5 % 35.0-45.0 MCV 92.9 fL 80.0-100.0 MCH 30.0 pg 27.0-33.0 MCHC 32.3 g/dL 32.0-36.0 RDW 13.2 % 11.0-15.0 PLATELET COUNT 229 Thousand/uL 140-400 MPV 11.5 fL 7.5-12.5 ABSOLUTE NEUTROPHILS 3311 cells/uL 1500- 7800 ABSOLUTE LYMPHOCYTES 1649 cells/uL 850-3 900 ABSOLUTE MONOCYTES 732 cells/uL 200-950 ABSOLUTE EOSINOPHILS 471 cells/uL 15-500 ABSOLUTE BASOPHILS 37 cells/uL 0-200 NEUTROPHILS 53.4 % NRG LYMPHOCYTES 26.6 % NRG MONOCYTES 11.8 % NRG EOSINOPHILS 7.6 % NRG BASOPHILS 0.6 % NRG Encounters ACCT No. Visit Date/Time Discharge Status Pt. Type Provider Facility Loc./Unit Complaint [id number] 02/18/2020 13:00:00 02/18/2020 23:59:[address] [facility] Outpatient [facility] [id number] 02/13/2020 10:30:00 Document Registration [id number] 08/27/2019 09:00:00 Document Registration [id number] 04/05/2019 10:30:00 Document Registration [id number] 10/11/2018 10:30:00 Document Registration [id number] 04/08/2014 08:40:00 04/08/2014 23:59: 59 [facility] Outpatient CASTILLO AN MD [id number] 07/20/2013 13:49:00 07/20/2013 23:59: 59 CLS Outpatient CASTILLO AN MD [id number] 12/12/2012 09:23:00 12/12/2012 23:59: 59 [place] [id number] 06/13/2012 10:54:00 06/13/2012 23:59:5 9 CLS Outpatient CASTILLO AN MD [id number] 03/06/2020 05:34:00 12:33:00 DIS Outpatient KIMI THOMAS DO [facility] PREOP HISTORY OF POLYPS, HIST ORY OF DIVERTICULITIS [id number] 09/12/2019 11:17:00 23:59:59 CLS Outpatient SHAUNNA MESA APRN [facility] RT DYSPNEA,OTHER D ISORDERS LUNG [id number] 08/17/2019 18:35:00 07:21:00 DIS Outpatient SHAUNNA MESA APRN [facility] SLEEP MAT [id number] 07/26/2019 15:54:00 19:02:00 DIS Emergency AMAIRANI LOVE, AVNI Morrison [facility] ER CONGESTION/NAUSEA/VOMIT ING [id number] 07/02/2019 09:34:00 23:59:59 CLS Outpatient SHAUNNA MESA APRN [facility] RT DYSPNEA,BILATER AL LEG PAIN [id number] 06/26/2019 14:37:00 23:59:59 CLS Outpatient SHAUNNA MESA APRN [facility] RAD DYSPNEA [id number] 01/15/2019 11:33:00 23:59:59 CLS Outpatient MIKE LOVE, ELISHA Velarde [facility] RAD FS J01.00 [id number] 03/04/2020 14:53:00 Document Registration
[2020-03-10] MEDS ORDERED: LACTATED RINGERS 1,000 ML IV STA (08:00)
[2020-03-10] MEDS ORDERED: LACTATED RINGERS 1,000 ML IV ONE (08:06)
[2020-03-10 08:15] VITALS: BP 137/115
--- NOTE | 2020-03-10 09:03 | Progress Note-Pre Operative ---
Pre-Operative Progress Note H&P Reviewed The H&P was reviewed, patient examined and no changes noted. Time Seen by Provider: 09:01 Date H&P Reviewed: Mar 10, 2020 Time H&P Reviewed: 09:00 Pre-Operative Diagnosis: Hx of polyps, LLQ pain, rectal bleed KIMI THOMAS DO Mar 10, 2020 09:03
[2020-03-10] MEDS ORDERED: PROPOFOL INJECTION 50 ML IV ONE (09:49)
[2020-03-10] MEDS ORDERED: MIDAZOLAM 2 MG/2 ML (VERSED) VIAL ONE (09:50)
[2020-03-10 10:25] VITALS: BP 165/95
[2020-03-10 10:30] VITALS: BP 156/90
--- NOTE | 2020-03-10 10:31 | Progress Note-Post Operative ---
Post-Operative Progess Note Surgeon (s)/Scrap Piler (s) Surgeon KIMI THOMAS DO Scrap Piler: none Pre-Operative Diagnosis Hx of polyps, LLQ pain, rectal bleed Post-Operative Diagnosis Polyp Inflammation diverticula int hemorrhoids Procedure & Operative Findings Date of Procedure 03/10/20 Procedure Performed/Findings Colon with hot bx Anesthesia Type IV sedation by [employer] Estimated Blood Loss Estimated blood loss (mL): scant Specimens/Packing Specimens Removed Sigmoid bx for inflammation Sigmoid polyp KIMI THOMAS DO Mar 10, 2020 10:31
--- NOTE | 2020-03-10 10:32 | Endoscopy Discharge Instruct ---
Endo Procedure/Findings Findings 1.: Polyp 2.: Diverticulosis 3.: Internal Hemorrhoids 4.: Other Findings (inflammation) Discharge Instructions - Activity: You might feel a little sleepy until tomorrow. This is due to the m edicine you received to relax you. Until tomorrow, you should: NOT drive a car, operate machinery or power tools. NOT drink any alcoholic beverages. NOT make any important decisions or sign importortant papers. Do not return to work until tomorrow, unless otherwise instructed. Resume previous activities tomorrow. Diet: Start by taking liquids. If you tolerate liquids, advance to solid food. make an appointment for one week 1.: Colonscopy in 5 years Notify Physician - If you experience excessive bleeding, unusual abdominal pain, fever, or chest pain, contact your doctor immediately. KIMI THOMAS DO Mar 10, 2020 10:32
[2020-03-10 10:35] VITALS: BP 156/90
[2020-03-10 11:00] VITALS: BP 168/90
--- NOTE | 2020-03-10 12:46 | Anesthesia-General Post-Op ---
MAC Patient Condition Mental Status/LOC: Same as Preop Cardiovascular: Satisfactory Nausea/Vomiting: Absent Respiratory: Satisfactory Pain: Controlled Complications: Absent Post Op Complications Complications None Follow Up Care/Instructions Patient Instructions None needed. Anesthesiology Discharge Order Discharge Order Patient is doing well, no complaints, stable vital signs, no apparent adverse anesthesia problems. No complications reported per nursing. HOLLEY ORTIZ CRNA Mar 10, 2020 12:46
--- NOTE | 2020-03-10 23:22 | OPERATIVE REPORT ---
DATE OF SERVICE: 03/10/2020 PREOPERATIVE DIAGNOSES: 1. History of polyps. 2. Left lower quadrant pain. 3. Rectal bleed. POSTOPERATIVE DIAGNOSES: 1. Colon polyp, colon inflammation, possible Colitis. 2. Diverticula. 3. Internal hemorrhoids. PROCEDURE: Colonoscopy with hot biopsy. SURGEON: Israel Avendano DO ROAD TRAFFIC CONTROLLER: None. ANESTHESIA: IV sedation by CHAIR FINISHER. SPECIMEN: Sigmoid biopsy as well as then sigmoid polyp and then another sigmoid wall biopsy. BLOOD LOSS: Scant. FLUIDS: Per anesthesia. POSTOPERATIVE CONDITION: Stable. INDICATION FOR PROCEDURE: The patient is a 74-year-old female who has been having some left lower quadrant pain. She has a history of polyps and she noted some rectal bleeding, needed a workup. FINDINGS: The patient had a polyp in the sigmoid colon, but also throughout the sigmoid colon had some inflammation, had diverticula noted and internal hemorrhoids. PROCEDURE NOTE: After informed consent was obtained, the patient was brought to the endoscopy suite, placed in bed in left lateral decubitus position. She was administered IV sedation by the CHAIR FINISHER who then monitored her vitals the entire time, heart rate, blood pressure and pulse ox and the scope was inserted, pushed in all the way to about 160 cm, able to get all the cecum, took a picture of appendiceal orifice, noted the ileocecal valve and then slowly withdrew the scope insufflating to look circumferentially at the jefferson looking the cecum, up the ascending colon to the hepatic flexure, then down the transverse colon, splenic flexure, into the descending colon down in the sigmoid. Through the descending colon and sigmoid, saw some diverticula. In the sigmoid colon, saw a lot of inflammation, almost look like colitis with small possible ulcerations. Elected to do a biopsy of the sigmoid and then when I came down a little bit further saw what looked like a large polyp possibly inflammatory polyp, did another hot biopsy of this and then did another biopsy of the wall of the sigmoid and an area that looked like there were no ulcerations. I then continued into the rectum, retroflexed in rectal vault, saw some internal hemorrhoids. No other pathology. The scope was removed. The patient tolerated the procedure and recovered in endoscopy suite. Job ID: [id number] DocumentID: [id number] Dictated Date: 03/10/2020 22:34:28 Car Head Liner Installer Date: 03/10/2020 23:20:35 Dictated By: ISRAEL AVENDANO, DO
== END 2020-03-10 11:05 | disposition home or self-care (01) ==
LOC: ENDO 07:49
PROVIDERS: ATTEND Surgery
DX: K63.5 Polyp of colon (principal); K52.9 Noninfective gastroenteritis and colitis, unspecified; K57.30 Diverticulosis of large intestine without perforation or abscess without bleeding; J43.9 Emphysema, unspecified; G47.10 Hypersomnia, unspecified; K64.8 Other hemorrhoids; I10 Essential (primary) hypertension; I20.9 Angina pectoris, unspecified; G47.33 Obstructive sleep apnea (adult) (pediatric); F41.9 Anxiety disorder, unspecified; Z79.82 Long term (current) use of aspirin; Z79.51 Long term (current) use of inhaled steroids; Z79.899 Other long term (current) drug therapy; Z88.5 Allergy status to narcotic agent; Z88.2 Allergy status to sulfonamides; Z88.1 Allergy status to other antibiotic agents; Z88.8 Allergy status to other drugs, medicaments and biological substances; Z95.5 Presence of coronary angioplasty implant and graft; Z86.010 Personal history of colon polyps

== ENCOUNTER → 2020-11-24 | Outpatient (CLI) | payer MEDICARE ==
[~2020-11-24] MED LIST changes: +ALPR.25T PO; -ALPR0.254 PO; +AMLO-251 PO; -AMLO10TA7 PO; +ASPI-1238 PO; -ASPI-983 PO; +CATHETER FLUSH 10 ML SYR IV PRN; +HOLD METFORMIN - RECEIVED CONTRAST 20 ML VIAL IV SCH; +IOHEXOL 350 MG/ML 100 ML (OMNIPAQUE 350) VIAL IV ONE; -LISI-552 PO; +LISI20TA26 PO; -MONT10TA26 PO; +MONT10TA32 PO; +NS 100 ML (IVPB) BAG IV ONE
[2020-11-24 10:28] LABS: BUN/CREATININE RATIO 22; CREATININE SERUM 0.63 MG/DL (0.60-1.30); GFR ESTIMATED > 60
--- NOTE | 2020-11-24 12:59 | Diagnostic Imaging Report ---
PROCEDURE: CT chest with contrast only. TECHNIQUE: Multiple contiguous axial images were obtained through the chest after administration of intravenous contrast. Auto Exposure Controls were utilized during the CT exam to meet ALARA standards for radiation dose reduction. DATE: November 24, 2020. COMPARISON: Chest radiograph July 26, 2019. CT chest June 26, 2019. INDICATION: 75-year-old female, shortness of breath. History of prior Covid 19 infection. FINDINGS: There are mild linear opacities in the peripheral aspect of the right upper lobe. There are also mild linear opacities in the left lower lobe and left upper lobe. There are areas of mosaic lung attenuation in the right and left upper lobes, right middle lobe, right lower lobe, and left lower lobe. There is no additional airspace consolidation. There is no pulmonary nodule. There is no lung mass. The more central airways are patent. There is no pneumothorax. There is no pleural effusion. There is abnormal low-attenuation adjacent to the left-sided pulmonary vasculature, most notably adjacent to the left lower lobe segmental pulmonary arteries. There is likely at least a nonocclusive thrombus in a left lower lobe segmental pulmonary artery branch on axial image 63. Additional areas of low-attenuation may also relate to emboli within the peripheral aspects of the left lower lobe segmental pulmonary artery branches. The main pulmonary artery diameter measures abnormally dilated at 3.5 cm. The heart is not enlarged. There is no pericardial effusion. There is a small hiatal hernia. There is no identified abnormally enlarged mediastinal, hilar, or axillary lymph node meeting CT size criteria for adenopathy. Additional evaluation of the imaged portions of the upper abdomen is unremarkable. There are multilevel degenerative changes of the spine. There is no identified acute bony abnormality. IMPRESSION: 1. Peripheral nonocclusive pulmonary emboli in left lower lobe segmental pulmonary artery branches which is a change since June 26, 2019. 2. Abnormally dilated main pulmonary artery diameter suggesting pulmonary artery hypertension. 3. Mild multifocal scarring in the lungs with multifocal mosaic lung attenuation, most likely reflecting small airways disease and air trapping. 4. Small hiatal hernia. 5. Called office of Nitza Thakur APRN, with no answer at 1133 hours on November 24, 2020. Repeat attempts will be made. 6. A message was left on voice mail for a return call at 11:53 AM by mai. A repeat call was made at 12:55 PM and the report was given to Nitza Thakur APRN, by mai. The report was faxed as well. Dictated by: Dictated on workstation # [id number]
== END ==
LOC: RAD FS 09:32
PROVIDERS: ATTEND Nurse Practitioner Family
DX: J44.9 Chronic obstructive pulmonary disease, unspecified (principal); I26.99 Other pulmonary embolism without acute cor pulmonale; I28.1 Aneurysm of pulmonary artery; J98.4 Other disorders of lung; K44.9 Diaphragmatic hernia without obstruction or gangrene
CPT/HCPCS: 36415; 71260; 82565; 84520

== ENCOUNTER 2021-12-10 00:28 | Emergency (ER) | payer MEDICARE ==
[~2021-12-10] VITALS: Ht 152 cm; Wt 77.5 kg
[~2021-12-10 00:28] MED LIST changes: -CATHETER FLUSH 10 ML SYR IV PRN; -HOLD METFORMIN - RECEIVED CONTRAST 20 ML VIAL IV SCH; -IOHEXOL 350 MG/ML 100 ML (OMNIPAQUE 350) VIAL IV ONE; +MONT-40 PO; -MONT10TA32 PO; -NS 100 ML (IVPB) BAG IV ONE; +OMEP20TA56 PO; -OMEP20TA7 PO
--- NOTE | 2021-12-10 01:41 | ED GI ---
General Chief Complaint: Abdominal/GI Problems Stated Complaint: NAUSEA/VOMITING Source of Information: Patient, EMS History of Present Illness Date Seen by Provider: Dec 10, 2021 Time Seen by Provider: 00:28 Initial Comments 76-year-old female presenting by EMS from home with complaints of nausea and vomiting. She thinks that she had eaten some bad mayonnaise with a sandwich for supper. She has had nausea and vomiting for a little over 3 hours. She has a cramping epigastric pain. She denies pain with urination. She denies having any diarrhea. Timing/Duration: 1-3 Hours Severity/Quality: Severe, Cramping Location: Generalized Abdomen Modifying Factors: Worsens With Eating Associated Symptoms: No Back Pain, No Chest Pain, No Diaphoresis, No Fever /Chills, No Fatigue, No Headache, No Heartburn; Nausea/Vomiting; No Rash, No Shortness of Air, No Swelling/Mass in Abdomen, No Syncope, No Weakness Allergies and Home Medications Allergies Coded Allergies: Sulfa (Sulfonamide Antibiotics) (Verified Allergy, Unknown, 03/04/20) amoxicillin (Verified Allergy, Unknown, 03/04/20) citalopram (Verified Allergy, Unknown, 03/04/20) Patient Home Medication List Home Medication List Reviewed: Yes ALPRAZolam (Xanax Tablet) 0.25 Mg Tablet, 0.25 MG PO HS, (Reported) Entered as Reported by: VERENICE FREEMAN on 03/06/20 0857 Acetaminophen (Tylenol Extra Strength) 500 Mg Tablet, 1,000 MG PO HS, (Reported) Entered as Reported by: VERENICE FREEMAN on 03/06/20 0857 Amlodipine Besylate (Amlodipine Besylate) 10 Mg Tablet, 10 MG PO DAILY, (Reported) Entered as Reported by: VERENICE FREEMAN on 03/06/20 0857 Ascorbic Acid (Vitamin C) 500 Mg Tablet, 500 MG PO DAILY, (Reported) Entered as Reported by: VERENICE FREEMAN on 03/06/20 0857 Aspirin (Aspirin EC) 81 Mg Tablet.dr, 81 MG PO HS, (Reported) Entered as Reported by: VERENICE FREEMAN on 03/06/20 0857 Ciprofloxacin HCl (Ciprofloxacin HCl) 500 Mg Tablet, 500 MG PO BID Prescribed by: ALEXANDRA BENITEZ on 4/28/22 0319 Clopidogrel Bisulfate (Clopidogrel) 75 Mg Tablet, 75 MG PO DAILY, (Reported) Entered as Reported by: VERENICE FREEMAN on 03/06/20856 Fexofenadine HCl (Caitlin Allergy) 180 Mg Tablet, 180 MG PO BID, (Reported) Entered as Reported by: VERENICE FREEMAN on 03/06/20856 Furosemide (Furosemide) 20 Mg Tablet, 20 MG PO DAILY, (Reported) Entered as Reported by: VERENICE FREEMAN on 03/06/20856 Lisinopril (Lisinopril) 20 Mg Tablet, 20 MG PO DAILY, (Reported) Entered as Reported by: VERENICE FREEMAN on 03/06/20856 Lovastatin (Lovastatin) 20 Mg Tablet, 20 MG PO HS, (Reported) Entered as Reported by: VERENICE FREEMAN on 03/06/20856 Meloxicam (Meloxicam) 15 Mg Tablet, 15 MG PO HS, (Reported) Entered as Reported by: VERENICE FREEMAN on 03/06/20856 Metoprolol Succinate (Metoprolol Succinate) 50 Mg Tab.er.24h, 50 MG PO DAILY, (Reported) Entered as Reported by: VERENICE FREEMAN on 03/06/20856 Metronidazole (Metronidazole) 500 Mg Tablet, 500 MG PO TID Prescribed by: ALEXANDRA BENITEZ on 12/10/21318 Montelukast Sodium (Montelukast Sodium) 10 Mg Tablet, 10 MG PO HS, (Reported) Entered as Reported by: VERENICE FREEMAN on 03/06/20856 Omeprazole (Omeprazole) 20 Mg Tablet.dr, 20 MG PO BID, (Reported) Entered as Reported by: VERENICE FREEMAN on 03/06/20856 Potassium Chloride (K-Tab ER) 20 Meq Tablet.er, 20 MEQ PO DAILY Prescribed by: ALEXANDRA BENITEZ on 12/10/21319 Promethazine HCl (Promethazine Tablet) 25 Mg Tablet, 25 MG PO Q8H PRN for NAUSEA/VOMITING Prescribed by: ALEXANDRA BENITEZ on 12/10/21318 Spironolactone (Spironolactone) 25 Mg Tablet, 25 MG PO DAILY, (Reported) Entered as Reported by: VERENICE FREEMAN on 03/06/20 0857 Vitamin B Complex (Vitamin B Complex) 1 Each Tablet, 1 EACH PO DAILY, (Reported) Entered as Reported by: VERENICE FREEMAN on 03/06/20 0857 Review of Systems Review of Systems Constitutional: No chills, No fever EENTM: No Symptoms Reported Respiratory: No Symptoms Reported Cardiovascular: No Symptoms Reported Gastrointestinal: See HPI Genitourinary: Denies Burning, Denies Frequency Musculoskeletal: no symptoms reported Skin: No rash Psychiatric/Neurological: Anxiety Past Wrwjxze-Kitkmo-Ojgyuk Hx Patient Social History Tobacco Use?: No Substance use?: No Alcohol Use?: No Seasonal Allergies Seasonal Allergies: Yes Past Medical History Surgeries: Yes Adenoidectomy, Hysterectomy, Tonsillectomy Respiratory: Yes (oxygen at all times) COPD Cardiac: Yes (STENTS X3 FEBRUARY 2019) Heart Attack, Hypertension Neurological: No Genitourinary: No Gastrointestinal: Yes Diverticulosis, Polyps Musculoskeletal: Yes Amputee Endocrine: No HEENT: No Cancer: No Psychosocial: Yes Anxiety Integumentary: No Blood Disorders: No Physical Exam Vital Signs Vital Signs - First Documented 12/10/21 12/10/21 01:15 01:25 Temp 38.4 Pulse 84 Resp 22 B/P (MAP) 109/75 Pulse Ox 94 O2 Delivery Nasal Cannula O2 Flow Rate 5.00 Capillary Refill : Height/Weight/BMI Height: '" Weight: lbs. oz. kg; 34.65 BMI Method: General Appearance: moderate distress, obese HEENT: pharynx normal Neck: non-tender, full range of motion, supple, normal inspection Respiratory: chest non-tender, lungs clear, normal breath sounds, no respirator y distress, no accessory muscle use Cardiovascular: normal peripheral pulses, regular rate, rhythm Gastrointestinal: normal bowel sounds, soft, no pulsatile mass; No distended, No guarding, No rebound; tenderness (Diffuse tenderness) Rectal: deferred Neurologic/Psychiatric: alert, oriented x 3 Skin: normal color, warm/dry Focused Exam Lactate Level 12/10/21 00:30: Lactic Acid Level 1.94 Lactic Acid Level Laboratory Tests Test 12/10/21 00:30 Lactic Acid Level 1.94 MMOL/L (0.50-2.00) Progress/Results/Core Measures Results/Orders Lab Results Laboratory Tests Test 12/10/21 00:30 12/10/21 01:41 12/10/21 02:12 Range/Units White Blood Count 15.0 H 4.3-11.0 10^3/uL Red Blood Count 4.45 3.80-5.11 10^6/uL Hemoglobin 12.7 11.5-16.0 g/dL Hematocrit 39 35-52 % Mean Corpuscular Volume 87 80-99 fL Mean Corpuscular Hemoglobin 29 25-34 pg Mean Corpuscular Hemoglobin Concent 33 32-36 g/dL Red Cell Distribution Width 15.9 H 10.0-14.5 % Platelet Count 186 130-400 10^3/uL Mean Platelet Volume 11.8 9.0-12.2 fL Immature Granulocyte % (Auto) 1 % Neutrophils (%) (Auto) 88 H 42-75 % Lymphocytes (%) (Auto) 5 L 12-44 % Monocytes (%) (Auto) 5 0-12 % Eosinophils (%) (Auto) 1 0-10 % Basophils (%) (Auto) 0 0-10 % Neutrophils # (Auto) 13.2 H 1.8-7.8 X 10^3 Lymphocytes # (Auto) 0.7 L 1.0-4.0 X 10^3 Monocytes # (Auto) 0.8 0.0-1.0 X 10^3 Eosinophils # (Auto) 0.1 0.0-0.3 10^3/uL Basophils # (Auto) 0.0 0.0-0.1 10^3/uL Immature Granulocyte # (Auto) 0.1 0.0-0.1 10^3/uL Neutrophils % (Manual) 90 % Lymphocytes % (Manual) 1 % Monocytes % (Manual) 1 % Basophils % (Manual) 1 % Metamyelocytes % 1 % Band Neutrophils 3 % Atypical Lymphocytes 2 % Reactive Lymphocytes 1 % Platelet Estimate NORMAL Anisocytosis SLIGHT Blood Morphology Comment NORMAL Prothrombin Time 14.2 12.2-14.7 SEC INR Comment 1.1 0.8-1.4 Activated Partial Thromboplast Time 29 24-35 SEC Lactic Acid Level 1.94 0.50-2.00 MMOL/L Sodium Level 139 135-145 MMOL/L Potassium Level 2.7 L 3.6-5.0 MMOL/L Chloride Level 104 98-107 MMOL/L Carbon Dioxide Level 23 21-32 MMOL/L Anion Gap 12 5-14 MMOL/L Blood Urea Nitrogen 11 7-18 MG/DL Creatinine 0.64 0.60-1.30 MG/DL Estimat Glomerular Filtration Rate 92 BUN/Creatinine Ratio 17 Glucose Level 117 H 70-105 MG/DL Calcium Level 9.1 8.5-10.1 MG/DL Corrected Calcium 9.3 8.5-10.1 MG/DL Total Bilirubin 0.5 0.1-1.0 MG/DL Aspartate Amino Transf (AST/SGOT) 20 5-34 U/L Alanine Aminotransferase (ALT/SGPT) 8 0-55 U/L Alkaline Phosphatase 98 40-136 U/L Total Protein 6.7 6.4-8.2 GM/DL Albumin 3.7 3.2-4.5 GM/DL Lipase 36 8-78 U/L Urine Color YELLOW Urine Clarity SL CLOUDY Urine pH 7.0 5-9 Urine Specific [place] 1.010 L 1.016-1.022 Urine Protein NEGATIVE NEGATIVE Urine Glucose (UA) NEGATIVE NEGATIVE Urine Ketones NEGATIVE NEGATIVE Urine Nitrite NEGATIVE NEGATIVE Urine Bilirubin NEGATIVE NEGATIVE Urine Urobilinogen 0.2 < = 1.0 MG/DL Urine Leukocyte Esterase NEGATIVE NEGATIVE Urine RBC (Auto) 2+ H NEGATIVE Urine RBC 10-25 H /HPF Urine WBC 0-2 /HPF Urine Squamous Epithelial Cells 2-5 /HPF Urine Crystals NONE /LPF Urine Bacteria FEW H /HPF Urine Casts PRESENT /LPF Urine Hyaline Casts RARE /LPF Urine Mucus SMALL H /LPF Urine Culture Indicated NO My Orders Orders - ALEXANDRA BENITEZ MD Comprehensive Metabolic Panel (12/10/21 01:41) Lipase (12/10/21 01:41) Ua Culture If Indicated (12/10/21 01:41) Ed Iv/Invasive Line Start (12/10/21 01:41) Cbc With Automated Diff (12/10/21 01:41) Ct Abdomen/Pelvis W (12/10/21 01:41) Ns Iv 1000 Ml (Sodium Chloride 0.9%) (12/10/21 01:45) Fentanyl Inj (Sublimaze Injection) (12/10/21 01:45) Ondansetron Injection (Zofran Injectio (12/10/21 01:45) Pantoprazole Injection (Protonix Injecti (12/10/21 01:45) Potassium Cl 10meq/50ml Ivpb (Kcl 10 Meq (12/10/21 01:50) Ns (Ivpb) (Sodium Chloride 0.9%) (12/10/21 01:50) Manual Differential (12/10/21 00:30) Iohexol Injection (Omnipaque 350 Mg/Ml 1 (12/10/21 02:15) Received Contrast (Hold Metformin- Contr (12/10/21 02:15) Sodium Chloride Flush (Catheter Flush Sy (12/10/21 02:15) Ns (Ivpb) (Sodium Chloride 0.9% Ivpb Bag (12/10/21 02:15) Blood Culture (12/10/21 02:09) Lactic Acid Analyzer (12/10/21 02:09) Protime With Inr (12/10/21 02:10) Partial Thromboplastin Time (12/10/21 02:10) Metronidazole 500mg/100ml Ivpb (Flagyl 5 (12/10/21 03:00) Ciprofloxacin Tablet (Cipro Tablet) (12/10/21 03:00) Orphenadrine Inj (Ed Only) (Norflex Inje (12/10/21 03:09) Medications Given in ED Current Medications Medications Dose Ordered Sig/Anya Route Start Time Stop Time Status Last Admin Dose Admin Fentanyl Citrate 25 mcg ONCE ONCE IVP 12/10/21 01:45 12/10/21 01:46 DC 12/10/21 00:49 25 MCG Iohexol 100 ml ONCE ONCE IV 12/10/21 02:15 12/10/21 02:26 DC 12/10/21 02:09 100 ML Ondansetron HCl 4 mg ONCE ONCE IVP 12/10/21 01:45 12/10/21 01:46 DC 12/10/21 00:48 4 MG Pantoprazole 40 mg ONCE ONCE IV 12/10/21 01:45 12/10/21 01:46 DC 12/10/21 00:51 40 MG Sodium Chloride 10 ml NEEDED PRN IV 12/10/21 02:15 12/10/21 02:09 10 ML Sodium Chloride 100 ml ONCE ONCE IV 12/10/21 02:15 12/10/21 02:26 DC 12/10/21 02:09 80 ML Vital Signs/I&O 412/10/21 12/10/21 12/10/21 01:15 01:25 03:00 04:00 Temp 38.4 Pulse 84 82 87 79 Resp 18 B/P (MAP) 109/75 132/82 (99) 147/72 133/71 Pulse Ox 94 93 93 O2 Delivery Nasal Cannula Nasal Cannula Nasal Cannula Nasal Cannula O2 Flow Rate 5.00 5.00 5.00 5.00 Progress Progress Note #1: Progress Note Obtain basic lab and urine. Order CT scan of the abdomen pelvis with IV contrast to evaluate for colitis versus diverticulitis versus gastroenteritis versus pyelonephritis versus bowel obstruction. Give normal saline 1 L IV bolus for hydration. Zofran 4 mg IV for nausea and vomiting. Fentanyl 25 mcg IV for abdominal pain. Protonix 40 mg IV for gastritis abdominal pain Progress Note #2: Time: 01:15 Progress Note Labs to her CBC has a white blood cell count of 14.95 with a left shift. He moglobin is stable at 12.7. Platelets are 186. Lactic acid is normal at 1.94. Chemistry shows sodium of 139, potassium 2.7, chloride 104, CO2 23, lipase 36, BUN 11, creatinine 0.64, glucose 117, calcium 9.1, total bilirubin 0.5, alkaline phosphatase 98, AST 20, ALT 8, total protein 6.7, albumin 3.7. Progress Note #3: Time: 02:54 Progress Note Urinalysis does not show signs of infection. Her CT scan shows mild thickening of the sigmoid colon with adjacent inflammatory changes and prominent lymph nodes concerning for mild diverticulitis. There is no evidence of perforation, abscess, bowel obstruction. Patient reports that she is feeling better. We will start her on Cipro and Flagyl for the diverticulitis. She was complaining of some back pain and that she did not take her nighttime muscle relaxer so we will give a dose of Norflex and see if that helps. Anticipate discharge to home after the Flagyl goes and provided her nausea stays controlled. Progress Note #4: Time: 04:28 Progress Note Patient tolerated oral intake here in the ED. Antibiotics finished infusing. Discharged to home with a course of Cipro and Flagyl as well as K-Dur for her low potassium. Counseled on follow-up and return precautions. Refill of Phenergan given as well. Diagnostic Imaging Diagonstic Imaging: CT Plain Films/CT/US/NM/MRI: abdomen, pelvis Comments CT of the abdomen and pelvis with IV contrast impression: Motion artifact limits evaluation. Mild thickening of the sigmoid colon with adjacent inflammatory change and prominent lymph nodes. Findings may be due to mild diverticulitis. No evidence of perforation or abscess. No evidence of bowel obstruction. Normal appendix. Left paramidline fat-containing ventral hernia with 2.9 cm neck. No gross evidence of incarceration. Midline fat-containing umbilical hernia. Moderate hiatal hernia. Mild dependent bronchiectasis with adjacent airspace disease which may be due to chronic aspiration. Nonobstructive right renal calculi. Read by radiologist Dr. Bryan Barrios MD at [phone] and faxed at [phone] Reviewed: Reviewed [place] Study, Reviewed by Me Departure Impression Primary Impression: Sigmoid diverticulitis Additional Impressions: Diffuse abdominal pain Nausea and vomiting in adult patient Hypokalemia Disposition: HOME, SELF-CARE Condition: Stable Departure-Patient Inst. Decision time for Depature: 03:20 Referrals: ELISHA MCKEON MD (PCP/Family) Primary Care Physician Patient Instructions: Abdominal Pain, Adult ED, Diverticulitis (DC), Nausea and Vomiting, Adult ED Add. Discharge Instructions: Take full course of antibiotics to treat for diverticulitis. Use the nausea medicine as needed to help keep your stomach settled so you can stay hydrated and take medicines as prescribed. Take potassium supplement to help improve your potassium level. If having worsening pain, uncontrolled nausea and vomiting, fever over 101 Fahrenheit then return or seek medical attention as you may need IV antibiotics or admission to the hospital to control your diverticulitis. All discharge instructions reviewed with patient and/or family. Voiced underst anding. Scripts Potassium Chloride (K-Tab ER) 20 Meq Tablet.er 20 MEQ PO DAILY for hypokalemia for 5 Days, #5 TAB 0 Refills Prov: ALEXANDRA BENITEZ MD 12/10/21 Promethazine HCl (Promethazine Tablet) 25 Mg Tablet 25 MG PO Q8H PRN for NAUSEA/VOMITING for 5 Days, #15 TAB 0 Refills Prov: ALEXANDRA BENITEZ MD 12/10/21 Metronidazole (Metronidazole) 500 Mg Tablet 500 MG PO TID for diverticulitis for 7 Days, #21 TAB 0 Refills Prov: ALEXANDRA BENITEZ MD 12/10/21 Ciprofloxacin HCl (Ciprofloxacin HCl) 500 Mg Tablet 500 MG PO BID for diverticulitis for 7 Days, #14 TAB 0 Refills Prov: ALEXANDRA BENITEZ MD 12/10/21 ALEXANDRA BENITEZ MD Dec 10, 2021 01:41
[2021-12-10] MEDS ORDERED: fentaNYL INJ 100 MCG/2 ML AMP IVP ONE (01:45)
[2021-12-10] MEDS ORDERED: ONDANSETRON 4 MG/2 ML (SDV) Z0FRAN IVP ONE (01:45)
[2021-12-10] MEDS ORDERED: NS IV 1000 ML 1,000 ML IV SCH (01:45)
[2021-12-10] MEDS ORDERED: PANTOPRAZOLE 40 MG (PROTONIX) VIAL IV ONE (01:45)
[2021-12-10 01:47] LABS: CREATININE SERUM 0.64 MG/DL (0.60-1.30); POTASSIUM 2.7 MMOL/L (3.6-5.0)
[2021-12-10 01:48] LABS: ALBUMIN 3.7 GM/DL (3.2-4.5); BILIRUBIN,TOTAL 0.5 MG/DL (0.1-1.0); CALCIUM 9.1 MG/DL (8.5-10.1); TOTAL PROTEIN 6.7 GM/DL (6.4-8.2)
[2021-12-10 01:50] LABS: HEMATOCRIT 39 % (35-52); HEMOGLOBIN 12.7 g/dL (11.5-16.0); MEAN CORPUSCULAR HEMOGLOBIN 29 pg (25-34)
[2021-12-10] MEDS ORDERED: NS (IVPB) 250 ML IV STA (01:50)
[2021-12-10] MEDS ORDERED: POTASSIUM CL 10MEQ/50ML IVPB 50 ML IV STA (01:50)
[2021-12-10 01:51] LABS: BASOPHILS % (AUTO) 0 % (0-10); EOSINOPHILS # (AUTO) 0.1 10^3/uL (0.0-0.3); EOSINOPHILS % (AUTO) 1 % (0-10); LYMPHOCYTES # (AUTO) 0.7 X 10^3 (1.0-4.0); LYMPHOCYTES % (AUTO) 5 % (12-44); MEAN CORPUSCULAR HGB CONC 33 g/dL (32-36); MEAN CORPUSCULAR VOLUME 87 fL (80-99); MEAN PLATELET VOLUME 11.8 fL (9.0-12.2); MONOCYTES # (AUTO) 0.8 X 10^3 (0.0-1.0); MONOCYTES % (AUTO) 5 % (0-12); NEUTROPHILS # (AUTO) 13.2 X 10^3 (1.8-7.8); NEUTROPHILS % (AUTO) 88 % (42-75); PLATELET COUNT 186 10^3/uL (130-400)
[2021-12-10 01:53] LABS: ATYPICAL LYMPHOCYTES 2 %; BAND NEUTROPHILS 3 %; BASOPHILS % (MANUAL) 1 %; LYMPHOCYTES % (MANUAL) 1 %; METAMYELOCYTES % 1 %; MONOCYTES % (MANUAL) 1 %; NEUTROPHILS % (MANUAL) 90 %
[2021-12-10 01:54] LABS: ANISOCYTOSIS SLIGHT; PLATELET ESTIMATE NORMAL; RBC MORPH NORMAL; REACTIVE LYMPHOCYTES 1 %
[2021-12-10] MEDS ORDERED: HOLD METFORMIN - RECEIVED CONTRAST 20 ML VIAL IV SCH (02:15)
[2021-12-10] MEDS ORDERED: NS 100 ML (IVPB) BAG IV ONE (02:15)
[2021-12-10] MEDS ORDERED: CATHETER FLUSH 10 ML SYR IV PRN (02:15)
[2021-12-10] MEDS ORDERED: IOHEXOL 350 MG/ML 100 ML (OMNIPAQUE 350) VIAL IV ONE (02:15)
[2021-12-10 02:20] LABS: BILIRUBIN,URINE NEGATIVE (NEGATIVE); CLARITY,URINE SL CLOUDY; COLOR,URINE YELLOW; GLUCOSE, URINE (UA) NEGATIVE (NEGATIVE); KETONES,URINE NEGATIVE (NEGATIVE); LEUKOCYTE ESTERASE ,URINE NEGATIVE (NEGATIVE); NITRITE,URINE NEGATIVE (NEGATIVE); PROTEIN,URINE NEGATIVE (NEGATIVE)
[2021-12-10 02:22] LABS: INR 1.1 (0.8-1.4); PROTHROMBIN TIME PATIENT 14.2 SEC (12.2-14.7)
[2021-12-10 02:35] LABS: BACTERIA,URINE FEW /HPF; HYALINE CASTS, URINE RARE /LPF; WBC,URINE 0-2 /HPF
[2021-12-10] MEDS ORDERED: CIPROFLOXACIN 500 MG (CIPRO) TABLET PO STA (03:00)
[2021-12-10] MEDS ORDERED: metroNIDAZOLE 500MG/100ML IVPB 100 ML IV STA (03:00)
[2021-12-10] MEDS ORDERED: ORPHENADRINE 60 MG/2 ML (NORFLEX) AMP (ED ONLY) IVP STA (03:09)
[2021-12-10] MEDS ORDERED: PROM25TA14 PO (03:19)
[2021-12-10] MEDS ORDERED: CIPR500T5 PO (03:19)
[2021-12-10] MEDS ORDERED: METR-145 PO (03:19)
[2021-12-10] MEDS ORDERED: POTA-53 PO (03:20)
[2021-12-10 04:33] VITALS: BP 135/72
--- NOTE | 2021-12-10 07:01 | Diagnostic Imaging Report ---
PROCEDURE: CT abdomen and pelvis with contrast. TECHNIQUE: Multiple contiguous axial images were obtained through the abdomen and pelvis after administration of intravenous contrast. Auto Exposure Controls were utilized during the CT exam to meet ALARA standards for radiation dose reduction. All CT scans use one or more of the following dose optimizing techniques: automated exposure control, MA and/or KvP adjustment based on patient size and exam type or iterative reconstruction. INDICATION: Nausea, vomiting, pain COMPARISON: CT of the chest dated 11/24/2020 FINDINGS: Large hiatal hernia is present. Advanced calcifications versus stents within the coronary arteries. Bibasilar scarring and/or atelectasis. The liver is unremarkable. The spleen is unremarkable. The adrenal glands are unremarkable. The pancreas is unremarkable. The gallbladder is mildly dilated though there is no significant adjacent inflammatory stranding about the gallbladder. 6 mm nonobstructing calculus within the mid right kidney. The right kidney and right ureter are otherwise unremarkable. Left renal cysts are present. However, there is indeterminate 0.9 cm hypodensity within the mid left kidney with a Hounsfield units of 40 which is greater than typically seen for a simple benign cyst. Branching hypodensities are noted within the central aspect of the left kidney. No left-sided hydroureter. Advanced vascular calcifications within the abdominal aorta and its branch vessels without aneurysmal dilatation of the abdominal aorta. Small fat-containing umbilical hernia. Large sized fat-containing left-sided spigelian hernia is also present. The urinary bladder is unremarkable. Uterus is not visualized, likely surgically absent. No bowel obstruction or pneumatosis. Prominent colonic diverticulosis is present. Very minimal inflammatory stranding is noted within the left lower quadrant. Several small rounded soft tissue nodules are identified within the left lower quadrant, favored related to lymph nodes being at the upper limits of normal in size as these are below 1 cm in short dimension. No additional adenopathy within abdomen or pelvis. No significant free air or free fluid. Scattered osseous degenerative changes without acute osseous abnormality. IMPRESSION: Advanced colonic diverticulosis with mild diverticulitis suggested involving the proximal sigmoid colon without evidence of abscess formation or perforation. Large hiatal hernia. The gallbladder is borderline distended. This is nonspecific. This could simply be physiologic, though this can also relate to acute cholecystitis. If there is clinical concern for acute cholecystitis, then a right upper quadrant ultrasound would be recommended. Nonobstructing right renal calculus. Indeterminate left renal hypodensity with additional left renal cyst. This can be further evaluated with renal ultrasound. Alternatively, CT of abdomen with and without contrast using renal mass protocol could be performed. Large sized fat containing left Spigelian hernia. Agree with preliminary interpretation. Dictated by: Dictated on workstation # [id number]
== END 2021-12-10 04:33 | disposition home or self-care (01) ==
LOC: EDUNIT# 01:25 → ER FS 01:28
DX: K57.32 Diverticulitis of large intestine without perforation or abscess without bleeding (principal); E87.6 Hypokalemia
CPT/HCPCS: 36415; 74177; 80053; 81000; 83605; 83690; 85007; 85027; 85610; 85730; 87040; 93041; Q9967

== ENCOUNTER → 2021-12-29 | Outpatient (CLI) | payer MEDICARE ==
[~2021-12-29] MED LIST changes: +CIPR500T5 PO; +METR-145 PO; +POTA-53 PO; +PROM25TA14 PO; +RT-ALBUTEROL SULF 2.5 MG/3 ML PRE-MIX VIAL INH ONE
--- NOTE | 2021-12-29 14:07 | Diagnostic Imaging Report ---
PROCEDURE: CT chest without contrast. TECHNIQUE: Multiple contiguous axial images were obtained through the chest without the use of intravenous contrast. Auto Exposure Controls were utilized during the CT exam to meet ALARA standards for radiation dose reduction. INDICATION: Shortness of breath with COPD. History of nonocclusive pulmonary embolus on 11/24/2020 CT. FINDINGS: The interstitial groundglass mosaic pattern throughout both lungs is again demonstrated. No consolidated infiltrates have developed. No bronchiectasis or cystic bullae are seen. No pleural effusion or pericardial effusion. There is severe calcification of the coronary arteries. There is a large fixed hernia without evidence of incarceration. There is a cyst in the upper pole of the left kidney demonstrated. There is a nonobstructing 6 mm calculus in the right renal calyx. There is a faceted gallstone. IMPRESSION: 1. Persistent groundglass interstitial infiltrates throughout both lungs showing little change in appearance. 2. Very dense atherosclerotic calcification in the coronary arteries. 3. Large fixed hiatal hernia. 4. Nonobstructing calculus in the right kidney with a cyst in the left kidney measuring approximately 3.5 cm. 5. Faceted gallstone. Dictated by: Dictated on workstation # [id number]
== END ==
LOC: RT 09:15
PROVIDERS: ATTEND Nurse Practitioner Family
DX: J44.9 Chronic obstructive pulmonary disease, unspecified (principal); I25.5 Ischemic cardiomyopathy; Z99.81 Dependence on supplemental oxygen
CPT/HCPCS: 71250; 93306; 94060; 94726; 94729

== ENCOUNTER 2022-07-05 05:34 | Outpatient (CLI) | payer MEDICARE ==
[~2022-07-05] VITALS: Ht 152.5 cm; Wt 76.2 kg
[~2022-07-05 05:34] MED LIST changes: -RT-ALBUTEROL SULF 2.5 MG/3 ML PRE-MIX VIAL INH ONE
[2022-07-06] MEDS ORDERED: FLUT1DIS28 IH (13:39)
[2022-07-06] MEDS ORDERED: PREG75CA75 PO (13:39)
[2022-07-06] MEDS ORDERED: TIZA-169 PO (13:39)
[2022-07-06] MEDS ORDERED: METO-333 PO (13:39)
[2022-07-06] MEDS ORDERED: PANT40TA52 PO (13:39)
[2022-07-06] MEDS ORDERED: FLUT1BLS IH (13:39)
[2022-07-06] MEDS ORDERED: DOXY100C5 PO (13:39)
[2022-07-06] MEDS ORDERED: RIVA20TA PO (13:39)
== END 2022-07-06 13:42 ==
LOC: PREOP 05:34
PROVIDERS: ATTEND Surgery
DX: Z01.818 Encounter for other preprocedural examination (principal)

== ENCOUNTER 2023-04-13 17:42 | Emergency (ER) | payer MEDICARE ==
[~2023-04-13] VITALS: Ht 152.4 cm; Wt 80.3 kg
[~2023-04-13 17:42] MED LIST changes: +DOXY100C5 PO; +FLUT1BLS IH; +FLUT1DIS28 IH; +METO-333 PO; +PANT40TA52 PO; +PREG75CA75 PO; +RIVA20TA PO; +TIZA-169 PO
[2023-04-13 17:45] VITALS: BP 136/93
--- NOTE | 2023-04-13 18:05 | ED Cough/URI ---
General Chief Complaint: Cough/Cold/Flu Symptoms Stated Complaint: CONGESTION,COUGH,FEVER,FATIGUE History of Present Illness Date Seen by Provider: Apr 13, 2023 Time Seen by Provider: 17:58 Initial Comments 77-year-old female with PMH of CAD on Xarelto/COPD on home oxygen with baseline 3 L/non-smoker, is here with complaints of cough, congestion, wheezing, subjective fever, lethargy and fatigue for the past couple of days. Patient saw her PCP yesterday and was given prescription for doxycycline for which she has taken 2 doses so far. Patient felt very ill today and needed more oxygen so she came to the ER. Denies any known sick contacts. Denies nausea and vomiting, diarrhea, abdominal pain, chest pain, palpitations, headache, neck stiffness. Allergies and Home Medications Allergies Coded Allergies: Sulfa (Sulfonamide Antibiotics) (Verified Allergy, Unknown, 03/04/20) amoxicillin (Verified Allergy, Unknown, 03/04/20) citalopram (Verified Allergy, Unknown, 03/04/20) tomato (Verified Allergy, Unknown, 04/13/23) Patient Home Medication List Home Medication List Reviewed: Yes ALPRAZolam (Xanax Tablet) 0.25 Mg Tablet, 0.25 MG PO HS, (Reported) Entered as Reported by: VERENICE FREEMAN on 03/06/20 0857 Amlodipine Besylate (Amlodipine Besylate) 10 Mg Tablet, 10 MG PO DAILY, (Reported) Entered as Reported by: VERENICE FREEMAN on 03/06/20 0857 Clopidogrel Bisulfate (Clopidogrel) 75 Mg Tablet, 75 MG PO DAILY, (Reported) Entered as Reported by: VERENICE FREEMAN on 03/06/20 0857 Doxycycline Hyclate (Doxycycline Hyclate) 100 Mg Capsule, 100 MG PO DAILY, (Reported) Entered as Reported by: ALDAIR ROME on 07/06/22 1339 Fluticasone/Salmeterol (Advair 100-50 Diskus) 100 Mcg-50 Mcg/Dose Blst.w.dev, 1 EACH IH DAILY, (Reported) Entered as Reported by: ALDAIR ROME on 07/06/22 1339 Fluticasone/Vilanterol (Breo Ellipta 200-25 Mcg INH) 200 Mcg-25 Mcg/Dose Bl st.w.dev, 1 EACH IH DAILY, (Reported) Entered as Reported by: ALDAIR ROME on 07/06/22 1339 Lovastatin (Lovastatin) 20 Mg Tablet, 20 MG PO HS, (Reported) Entered as Reported by: VERENICE FREEMAN on 03/06/20 0857 Meloxicam (Meloxicam) 15 Mg Tablet, 15 MG PO HS, (Reported) Entered as Reported by: VERENICE FREEMAN on 03/06/20 0857 Metoprolol Tartrate (Metoprolol Tartrate) 25 Mg Tablet, 25 MG PO BID, (Reported) Entered as Reported by: ALDAIR ROME on 07/06/22 1339 Montelukast Sodium (Montelukast Sodium) 10 Mg Tablet, 10 MG PO HS, (Reported) Entered as Reported by: VERENICE FREEMAN on 03/06/20 0857 Pantoprazole Sodium (Pantoprazole Sodium) 40 Mg Tablet.dr, 40 MG PO DAILY, (Reported) Entered as Reported by: ALDAIR ROME on 07/06/22 133 Potassium Chloride (K-Tab ER) 20 Meq Tablet.er, 20 MEQ PO DAILY Prescribed by: ALEXANDRA BENITEZ on 12/10/21 0320 Pregabalin (Pregabalin) 75 Mg Capsule, 75 MG PO DAILY, (Reported) Entered as Reported by: ALDAIR ROME on 07/06/22 133 Rivaroxaban (Xarelto) 20 Mg Tablet, 20 MG PO DAILY, (Reported) Entered as Reported by: ALDAIR ROME on 07/06/22 133 Tizanidine HCl (Tizanidine HCl) 2 Mg Tablet, 2 MG PO DAILY, (Reported) Entered as Reported by: ALDAIR ROME on 07/06/22 133 Review of Systems Review of Systems Constitutional: see HPI, fever, malaise EENTM: nose congestion Respiratory: cough, short of breath, wheezing Cardiovascular: no symptoms reported Gastrointestinal: no symptoms reported Genitourinary: no symptoms reported Musculoskeletal: no symptoms reported Skin: no symptoms reported Psychiatric/Neurological: No Symptoms Reported Hematologic/Lymphatic: No Symptoms Reported Immunological/Allergic: no symptoms reported Past Wxsdepf-Zngtsn-Ebpjsg Hx Immunizations Up To Date First/Initial COVID19 Vaccinat: Second COVID19 Vaccination Cliff: Moderna Third COVID19 Vaccination Date: Seasonal Allergies Seasonal Allergies: Yes Past Medical History Surgeries: Yes Adenoidectomy, Hysterectomy, Tonsillectomy Respiratory: Yes (oxygen at all times 4L/NC) COPD Cardiac: Yes (STENTS X3 FEBRUARY 2019) Heart Attack, Hypertension Neurological: No Genitourinary: No Gastrointestinal: Yes Diverticulosis, Polyps Musculoskeletal: Yes Amputee Endocrine: No HEENT: No Cancer: No Psychosocial: Yes Depression Integumentary: No Blood Disorders: No Physical Exam Vital Signs - First Documented Capillary Refill : Height: '" Weight: lbs. oz. 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, no motor/sensory deficits, alert, normal mood/affect, oriented x 3 Skin: normal color Focused Exam Lactate Level 04/13/23 18:00: Lactic Acid Level 1.23 Lactic Acid Level Laboratory Tests Test 04/13/23 18:00 Lactic Acid Level 1.23 MMOL/L (0.50-2.00) Progress/Results/Core Measures Suspected Sepsis SIRS Temperature: Pulse: Respiratory Rate: Laboratory Tests 04/13/23 18:00: White Blood Count 10.6 Blood Pressure / Mean: 04/13/23 18:00: Lactic Acid Level 1.23 Laboratory Tests 04/13/23 18:00: Creatinine 0.58L, INR Comment 1.4, Platelet Count 240, Total Bilirubin 0.4 Results/Orders Lab Results Laboratory Tests Test 04/13/23 17:55 04/13/23 18:00 Range/Units Influenza Type A (RT-PCR) Not Detected Not Detecte Influenza Type B (RT-PCR) Not Detected Not Detecte SARS-CoV-2 RNA (RT-PCR) Not Detected Not Detecte White Blood Count 10.6 4.3-11.0 10^3/uL Red Blood Count 4.62 3.80-5.11 10^6/uL Hemoglobin 12.4 11.5-16.0 g/dL Hematocrit 39 35-52 % Mean Corpuscular Volume 85 80-99 fL Mean Corpuscular Hemoglobin 27 25-34 pg Mean Corpuscular Hemoglobin Concent 32 32-36 g/dL Red Cell Distribution Width 15.1 H 10.0-14.5 % Platelet Count 240 130-400 10^3/uL Mean Platelet Volume 11.6 9.0-12.2 fL Immature Granulocyte % (Auto) 0 % Neutrophils (%) (Auto) 60 42-75 % Lymphocytes (%) (Auto) 20 12-44 % Monocytes (%) (Auto) 10 0-12 % Eosinophils (%) (Auto) 8 0-10 % Basophils (%) (Auto) 1 0-10 % Neutrophils # (Auto) 6.4 1.8-7.8 10^3/uL Lymphocytes # (Auto) 2.2 1.0-4.0 10^3/uL Monocytes # (Auto) 1.1 H 0.0-1.0 10^3/uL Eosinophils # (Auto) 0.9 H 0.0-0.3 10^3/uL Basophils # (Auto) 0.1 0.0-0.1 10^3/uL Immature Granulocyte # (Auto) 0.0 0.0-0.1 10^3/uL Prothrombin Time 17.2 H 12.2-14.7 SEC INR Comment 1.4 0.8-1.4 Activated Partial Thromboplast Time 34 24-35 SEC D-Dimer 0.44 0.00-0.49 UG/ML Sodium Level 141 135-145 MMOL/L Potassium Level 3.2 L 3.6-5.0 MMOL/L Chloride Level 103 98-107 MMOL/L Carbon Dioxide Level 27 21-32 MMOL/L Anion Gap 11 5-14 MMOL/L Blood Urea Nitrogen 6 L 7-18 MG/DL Creatinine 0.58 L 0.60-1.30 MG/DL Estimat Glomerular Filtration Rate 94 BUN/Creatinine Ratio 10 Glucose Level 121 H 70-105 MG/DL Lactic Acid Level 1.23 0.50-2.00 MMOL/L Calcium Level 9.5 8.5-10.1 MG/DL Corrected Calcium 9.8 8.5-10.1 MG/DL Magnesium Level 2.0 1.6-2.4 MG/DL Total Bilirubin 0.4 0.1-1.0 MG/DL Aspartate Amino Transf (AST/SGOT) 24 5-34 U/L Alanine Aminotransferase (ALT/SGPT) 11 0-55 U/L Alkaline Phosphatase 126 40-136 U/L Troponin I < 0.30 <0.30 NG/ML Pro-B-Type Natriuretic Peptide 347.6 <450.0 PG/ML Total Protein 6.8 6.4-8.2 GM/DL Albumin 3.6 3.2-4.5 GM/DL My Orders Orders - CLARY FRANZ MD Covid 19 Inhouse Test (04/13/23 18:05) Influenza A And B By Pcr (04/13/23 18:05) Cbc With Automated Diff (04/13/23 18:16) Comprehensive Metabolic Panel (04/13/23 18:16) Fibrin Degradation Products (04/13/23 18:16) Lactic Acid Analyzer (04/13/23 18:16) Magnesium (04/13/23 18:16) Protime With Inr (04/13/23 18:16) Partial Thromboplastin Time (04/13/23 18:16) Probnp Fs (04/13/23 18:16) Troponin I Fs (04/13/23 18:16) Chest 1 View Ap/Pa Only (04/13/23 18:17) Ipratropium/Albuterol Inh Soln (Ipratrop (04/13/23 18:30) Methylprednisolone Sod Succ (Methylpredn (04/13/23 18:17) Svn Small Volume Nebulizer (04/13/23 18:17) Ipratropium/Albuterol Inh Soln (Ipratrop (04/13/23 18:45) Svn Small Volume Nebulizer (04/13/23 18:34) Medications Given in ED Current Medications Medications Dose Ordered Sig/Anya Route Start Time Stop Time Status Last Admin Dose Admin Albuterol/ Ipratropium 3 ml ONCE ONCE INH 04/13/23 18:30 04/13/23 18:31 DC 04/13/23 18:24 3 ML Albuterol/ Ipratropium 3 ml ONCE ONCE INH 04/13/23 18:45 04/13/23 18:46 DC 04/13/23 19:09 3 ML Vital Signs/I&O 04/13/23 04/13/23 17:45 17:45 Temp 36.3 Pulse 67 Resp 18 B/P (MAP) 136/93 (107) Pulse Ox 93 O2 Delivery Nasal Cannula Nasal Cannula O2 Flow Rate 4.00 2.00 Capillary Refill : Progress Note : Progress Note 1. ACUTE COPD EXACERBATION : - CXR: no acute findings - CBC/CMP: unremarkable, normal WBC - BNP: normal - D-dimer: normal - COVID test/ Rapid flu test: negative - Duo neb x2 / Solumedrol 125mg iv STAT - Pt is already on a course of Doxycycline from her PCP. Advised to continue th at and complete it as instructed by PCP. - Advised to optimize nebulizer and inhaler treatment at home when SOB or wheezing. - Prednisone dose increased for the next 3 days, 50mg daily for the next 3 days only instead of her [id number]. - Follow up with PCP in the next 7 days -The patient was seen in the ED, and treated appropriately to presentation at a specific point in time. Patient is informed that there is a possibility that disease and illness can evolve and change in acuity rapidly or slowly after p atient is discharged from the ER. Precautionary advice given to the patient for immediate return to ER if symptoms worsen or do not resolve, and to seek emergency care sooner rather than later. Pt also advised on the importance of PCP follow up and compliance with management and follow up plan with PCP and/or specialist, as this is part of the management plan. Pt verbally expressed understanding. Diagnostic Imaging Diagonstic Imaging: Xray Plain Films/CT/US/NM/MRI: chest Comments [facility]. [place], [place] NAME: [facility] REC#: [id number] PT STATUS: REG ER : 1945 PHYSICIAN: CLARY FRANZ MD ADMIT DATE: 04/13/23/ER FS Draft Date of Exam:04/13/23 CHEST 1 VIEW AP/PA ONLY EXAMINATION: Chest 1 view. HISTORY: Cough and congestion. COMPARISON: 07/26/2019. FINDINGS: There is moderate base atelectasis. Otherwise, the lungs are clear without edema or pneumonia. No pleural effusion or pneumothorax. Heart size is normal. IMPRESSION: Mild atelectasis, otherwise clear lungs. Dictated on workstation # [id number] Dict: 04/13/23 1829 Trans: 04/13/23 1831 [facility] [id number] Interpreted by: LISS ALBERTO MD Electronically signed by: Departure Impression Primary Impression: COPD with acute exacerbation Disposition: HOME, SELF-CARE Condition: Improved Departure-Patient Inst. Referrals: ELISHA MCKEON MD (PCP/Family) Primary Care Physician Patient Instructions: COPD Diet, Exacerbation of COPD, How to Use a Nebulizer ED, Oral steroid medicines, Risk Factors for COPD Add. Discharge Instructions: - Pt is already on a course of Doxycycline from her PCP. Advised to continue that and complete it as instructed by PCP. - Advised to optimize nebulizer and inhaler treatment at home when SOB or wheezing. - Prednisone dose increased for the next 3 days, 50mg daily for the next 3 days only instead of her [id number]. - Follow up with PCP in the next 7 days All discharge instructions reviewed with patient and/or family. Voiced understanding. Scripts Prednisone (Prednisone) 50 Mg Tab 50 MG PO DAILY for 3 Days, #3 TAB Prov: CLARY FRANZ MD 04/13/23 CLARY FRANZ MD Apr 13, 2023 18:05
[2023-04-13] MEDS ORDERED: methylPREDNISolone INJ 125 MG VIAL IV STA (18:17)
[2023-04-13] MEDS ORDERED: RT-Ipratropium/Albuterol NEB 3 ML VIAL INH ONE ×3 (18:30→19:30)
--- NOTE | 2023-04-13 18:32 | Diagnostic Imaging Report ---
EXAMINATION: Chest 1 view. HISTORY: Cough and congestion. COMPARISON: 07/26/2019. FINDINGS: There is moderate base atelectasis. Otherwise, the lungs are clear without edema or pneumonia. No pleural effusion or pneumothorax. Heart size is normal. IMPRESSION: Mild atelectasis, otherwise clear lungs. Dictated by: Dictated on workstation # [id number]
[2023-04-13 18:36] LABS: BASOPHILS # (AUTO) 0.1 10^3/uL (0.0-0.1); BASOPHILS % (AUTO) 1 % (0-10); EOSINOPHILS # (AUTO) 0.9 10^3/uL (0.0-0.3); EOSINOPHILS % (AUTO) 8 % (0-10); HEMATOCRIT 39 % (35-52); HEMOGLOBIN 12.4 g/dL (11.5-16.0); LYMPHOCYTES # (AUTO) 2.2 10^3/uL (1.0-4.0); LYMPHOCYTES % (AUTO) 20 % (12-44); MEAN CORPUSCULAR HEMOGLOBIN 27 pg (25-34); MEAN CORPUSCULAR HGB CONC 32 g/dL (32-36); MEAN CORPUSCULAR VOLUME 85 fL (80-99); MEAN PLATELET VOLUME 11.6 fL (9.0-12.2); MONOCYTES # (AUTO) 1.1 10^3/uL (0.0-1.0); MONOCYTES % (AUTO) 10 % (0-12); NEUTROPHILS # (AUTO) 6.4 10^3/uL (1.8-7.8); NEUTROPHILS % (AUTO) 60 % (42-75); PLATELET COUNT 240 10^3/uL (130-400); WHITE BLOOD COUNT 10.6 10^3/uL (4.3-11.0)
[2023-04-13 18:50] LABS: INR 1.4 (0.8-1.4); PROTHROMBIN TIME PATIENT 17.2 SEC (12.2-14.7)
[2023-04-13 18:51] LABS: BUN/CREATININE RATIO 10; CARBON DIOXIDE 27 MMOL/L (21-32); CHLORIDE 103 MMOL/L (98-107); CREATININE SERUM 0.58 MG/DL (0.60-1.30); FIBRIN DEGRADATION PRODUCTS 0.44 UG/ML (0.00-0.49); GFR ESTIMATED 94; GLUCOSE 121 MG/DL (70-105); POTASSIUM 3.2 MMOL/L (3.6-5.0); SODIUM 141 MMOL/L (135-145)
[2023-04-13 18:52] LABS: ALANINE AMINOTRANSFERASE 11 U/L (0-55); ALBUMIN 3.6 GM/DL (3.2-4.5); ALKALINE PHOSPHATASE 126 U/L (40-136); BILIRUBIN,TOTAL 0.4 MG/DL (0.1-1.0); CALCIUM 9.5 MG/DL (8.5-10.1); TOTAL PROTEIN 6.8 GM/DL (6.4-8.2)
[2023-04-13] MEDS ORDERED: PRD50T PO (19:30)
[2023-04-13] MEDS ORDERED: RX-ALBUTEROL NEB 2.5 MG/3 ML PACK #5 IH STA (20:03)
[2023-04-13] MEDS ORDERED: ALB0.5V INH (20:04)
[2023-04-13] MEDS ORDERED: RX-ALBUTEROL NEB 2.5 MG/3 ML PACK #5 IH ONE (20:11)
== END 2023-04-13 20:28 | disposition home or self-care (01) ==
LOC: EDUNIT# 17:42 → ER FS 17:44
DX: J44.1 Chronic obstructive pulmonary disease with (acute) exacerbation (principal); I25.10 Atherosclerotic heart disease of native coronary artery without angina pectoris; Z99.81 Dependence on supplemental oxygen; Z79.01 Long term (current) use of anticoagulants; Z88.2 Allergy status to sulfonamides; Z20.822 Contact with and (suspected) exposure to COVID-19
CPT/HCPCS: 36415; 71045; 80053; 83605; 83735; 83880; 84484; 85025; 85379; 85610; 85730; 87636; 96374

== ENCOUNTER 2023-04-23 08:19 | Emergency (ER) | payer MEDICARE ==
[~2023-04-23 08:19] MED LIST changes: +ALB0.5V INH; +PRD50T PO
--- NOTE | 2023-04-23 08:42 | ED General ---
General Chief Complaint: General Problems/Pain Stated Complaint: GEN WEAKNESS Source of Information: Patient, Family, Old Records Exam Limitations: No Limitations History of Present Illness Date Seen by Provider: Apr 23, 2023 Time Seen by Provider: 08:22 Initial Comments 77-year-old female with past medical history of COPD on 3 to 4 L oxygen at baseline, CAD, on Xarelto coming in with family due to general weakness, cough, shortness of breath. This has been ongoing for well over a week now. She presented to the ER over a week ago and was diagnosed with a COPD exacerbation. She finished her increasing dose of her prednisone as well as her antibiotics. Started feeling terrible again shortly afterwards with increasing productive cough again. She has been wearing 3 to 4 L of oxygen at home. No fever that they know of, vomiting, diarrhea, or any other concerns. She has been urinating less than usual. She is eating and drinking slightly less, but is taking her i mportant medications including her blood thinner. Allergies and Home Medications Allergies Coded Allergies: Sulfa (Sulfonamide Antibiotics) (Verified Allergy, Unknown, 03/04/20) amoxicillin (Verified Allergy, Unknown, 03/04/20) citalopram (Verified Allergy, Unknown, 03/04/20) tomato (Verified Allergy, Unknown, 04/13/23) Patient Home Medication List Home Medication List Reviewed: Yes ALPRAZolam (Xanax Tablet) 0.25 Mg Tablet, 0.25 MG PO HS, (Reported) Entered as Reported by: VERENICE FREEMAN on 03/06/20 0857 Albuterol Sulfate (Albuterol Sulfate) 2.5 Mg/0.5 Ml Vial.neb, 2.5 MG INH Q4H Prescribed by: CLARY FRANZ MD on 04/13/232003 Amlodipine Besylate (Amlodipine Besylate) 10 Mg Tablet, 10 MG PO DAILY, (Reported) Entered as Reported by: VERENICE FREEMAN on 03/06/20 0857 Clopidogrel Bisulfate (Clopidogrel) 75 Mg Tablet, 75 MG PO DAILY, (Reported) Entered as Reported by: VERENICE FREEMAN on 03/06/20 0857 Doxycycline Hyclate (Doxycycline Hyclate) 100 Mg Capsule, 100 MG PO DAILY, (Reported) Entered as Reported by: ALDAIR ROME on 07/06/22 1339 Fluticasone/Salmeterol (Advair 100-50 Diskus) 100 Mcg-50 Mcg/Dose Blst.w.dev, 1 EACH IH DAILY, (Reported) Entered as Reported by: ALDAIR ROME on 07/06/22 1339 Fluticasone/Vilanterol (Breo Ellipta 200-25 Mcg INH) 200 Mcg-25 Mcg/Dose Blst.w.dev, 1 EACH IH DAILY, (Reported) Entered as Reported by: ALDAIR ROME on 07/06/22 1339 Lovastatin (Lovastatin) 20 Mg Tablet, 20 MG PO HS, (Reported) Entered as Reported by: VERENICE FREEMAN on 03/06/20 0857 Meloxicam (Meloxicam) 15 Mg Tablet, 15 MG PO HS, (Reported) Entered as Reported by: VERENICE FREEMAN on 03/06/20 0857 Metoprolol Tartrate (Metoprolol Tartrate) 25 Mg Tablet, 25 MG PO BID, (Reported) Entered as Reported by: ALDAIR ROME on 07/06/22 133 Montelukast Sodium (Montelukast Sodium) 10 Mg Tablet, 10 MG PO HS, (Reported) Entered as Reported by: VERENICE FREEMAN on 03/06/20 0857 Pantoprazole Sodium (Pantoprazole Sodium) 40 Mg Tablet.dr, 40 MG PO DAILY, (Reported) Entered as Reported by: ALDAIR ROME on 07/06/22 1339 Potassium Chloride (K-Tab ER) 20 Meq Tablet.er, 20 MEQ PO DAILY Prescribed by: ALEXANDRA BENITEZ on 12/10/21 0320 Prednisone (Prednisone) 50 Mg Tab, 50 MG PO DAILY Prescribed by: CLARY FRANZ MD on 04/13/23 1930 Pregabalin (Pregabalin) 75 Mg Capsule, 75 MG PO DAILY, (Reported) Entered as Reported by: ALDAIR ROME on 07/06/22 133 Rivaroxaban (Xarelto) 20 Mg Tablet, 20 MG PO DAILY, (Reported) Entered as Reported by: ALDAIR ROME on 07/06/22 133 Tizanidine HCl (Tizanidine HCl) 2 Mg Tablet, 2 MG PO DAILY, (Reported) Entered as Reported by: ALDAIR ROME on 07/06/22 1339 Review of Systems Review of Systems Constitutional: No fever EENTM: see HPI, nose congestion Respiratory: cough, short of breath Cardiovascular: no symptoms reported Gastrointestinal: no symptoms reported Genitourinary: see HPI Musculoskeletal: no symptoms reported Skin: no symptoms reported Psychiatric/Neurological: No Symptoms Reported Hematologic/Lymphatic: No Symptoms Reported Immunological/Allergic: no symptoms reported All Other Systems Reviewed Negative Unless Noted: Yes Past Gwvmfch-Zirvsc-Hwvszp Hx Patient Social History Tobacco Use?: No Use of E-Cig and/or Vaping dev: No Substance use?: No Alcohol Use?: No Pt feels they are or have been: No Immunizations Up To Date Influenza Vaccine Up-to-Date: Yes; Up-to-Date First/Initial COVID19 Vaccinat: YES Second COVID19 Vaccination Cliff: YES Third COVID19 Vaccination Date: YES Seasonal Allergies Seasonal Allergies: Yes Past Medical History Surgery/Hospitalization HX: COPD Surgeries: Yes Adenoidectomy, Hysterectomy, Tonsillectomy Respiratory: Yes (oxygen at all times 4L/NC) COPD Cardiac: Yes (STENTS X3 FEBRUARY 2019) Heart Attack, Hypertension Neurological: No Genitourinary: No Gastrointestinal: Yes Diverticulosis, Polyps Musculoskeletal: Yes Amputee Endocrine: No HEENT: No Cancer: No Psychosocial: Yes Depression Integumentary: No Blood Disorders: No Physical Exam Vital Signs Vital Signs - First Documented 04/23/23 04/23/23 08:25 08:39 Temp 36.6 Pulse 74 Resp 16 B/P (MAP) 148/112 (124) Pulse Ox 93 O2 Delivery Nasal Cannula O2 Flow Rate 3.00 Capillary Refill : Height, Weight, BMI Height: '" Weight: lbs. oz. kg; 34.00 BMI Method: General Appearance: Chronically ill Eyes: Bilateral Eye Normal Inspection HEENT: PERRL/EOMI, Normal ENT Inspection, Pharynx Normal Neck: Full Range of Motion, Normal Inspection, Non Tender, Supple Respiratory: Chest Non Tender, Accessory Muscle Use, Rhonci, Wheezing Cardiovascular: Regular Rate, Rhythm, Normal Peripheral Pulses Gastrointestinal: Normal Bowel Sounds, Non Tender, Soft; No Distended, No Guarding Back: Normal Inspection, No CVA Tenderness Extremity: Normal Capillary Refill, Normal Inspection, Normal Range of Motion, Non Tender, No Calf Tenderness, No Pedal Edema Neurologic/Psychiatric: Alert, No Motor/Sensory Deficits, Normal Mood/Affect Skin: Normal Color, Warm/Dry Focused Exam Lactate Level 04/23/23 08:35: Lactic Acid Level 1.05 Lactic Acid Level Laboratory Tests Test 04/23/23 08:35 Lactic Acid Level 1.05 MMOL/L (0.50-2.00) Progress/Results/Core Measures Suspected Sepsis SIRS Temperature: Pulse: Respiratory Rate: Laboratory Tests 04/23/23 08:35: White Blood Count 9.6 Blood Pressure / Mean: 04/23/23 08:35: Lactic Acid Level 1.05 Laboratory Tests 04/23/23 08:35: Creatinine 0.65, INR Comment 1.1, Platelet Count 255, Total Bilirubin 0.5 Results/Orders Lab Results Laboratory Tests Test 04/23/23 08:35 04/23/23 08:44 Range/Units White Blood Count 9.6 4.3-11.0 10^3/uL Red Blood Count 5.05 3.80-5.11 10^6/uL Hemoglobin 13.4 11.5-16.0 g/dL Hematocrit 44 35-52 % Mean Corpuscular Volume 86 80-99 fL Mean Corpuscular Hemoglobin 27 25-34 pg Mean Corpuscular Hemoglobin Concent 31 L 32-36 g/dL Red Cell Distribution Width 15.5 H 10.0-14.5 % Platelet Count 255 130-400 10^3/uL Mean Platelet Volume 11.1 9.0-12.2 fL Immature Granulocyte % (Auto) 0 % Neutrophils (%) (Auto) 61 42-75 % Lymphocytes (%) (Auto) 25 12-44 % Monocytes (%) (Auto) 7 0-12 % Eosinophils (%) (Auto) 7 0-10 % Basophils (%) (Auto) 1 0-10 % Neutrophils # (Auto) 5.8 1.8-7.8 10^3/uL Lymphocytes # (Auto) 2.4 1.0-4.0 10^3/uL Monocytes # (Auto) 0.7 0.0-1.0 10^3/uL Eosinophils # (Auto) 0.7 H 0.0-0.3 10^3/uL Basophils # (Auto) 0.1 0.0-0.1 10^3/uL Immature Granulocyte # (Auto) 0.0 0.0-0.1 10^3/uL Prothrombin Time 14.6 12.2-14.7 SEC INR Comment 1.1 0.8-1.4 Activated Partial Thromboplast Time 30 24-35 SEC Sodium Level 145 135-145 MMOL/L Potassium Level 3.3 L 3.6-5.0 MMOL/L Chloride Level 105 98-107 MMOL/L Carbon Dioxide Level 28 21-32 MMOL/L Anion Gap 12 5-14 MMOL/L Blood Urea Nitrogen 8 7-18 MG/DL Creatinine 0.65 0.60-1.30 MG/DL Estimat Glomerular Filtration Rate 91 BUN/Creatinine Ratio 12 Glucose Level 116 H 70-105 MG/DL Lactic Acid Level 1.05 0.50-2.00 MMOL/L Calcium Level 9.3 8.5-10.1 MG/DL Corrected Calcium 9.5 8.5-10.1 MG/DL Magnesium Level 2.0 1.6-2.4 MG/DL Total Bilirubin 0.5 0.1-1.0 MG/DL Aspartate Amino Transf (AST/SGOT) 23 5-34 U/L Alanine Aminotransferase (ALT/SGPT) 12 0-55 U/L Alkaline Phosphatase 114 40-136 U/L Troponin I < 0.30 <0.30 NG/ML Pro-B-Type Natriuretic Peptide 399.4 <450.0 PG/ML Total Protein 6.8 6.4-8.2 GM/DL Albumin 3.7 3.2-4.5 GM/DL Influenza Type A (RT-PCR) Not Detected Not Detecte Influenza Type B (RT-PCR) Not Detected Not Detecte SARS-CoV-2 RNA (RT-PCR) Not Detected Not Detecte My Orders Orders - NLEI ASTORGA MD Cbc With Automated Diff (04/23/23 08:38) Comprehensive Metabolic Panel (04/23/23 08:38) Lactic Acid Analyzer (04/23/23 08:38) Magnesium (04/23/23 08:38) Protime With Inr (04/23/23 08:38) Partial Thromboplastin Time (04/23/23 08:38) Ua Culture If Indicated (04/23/23 08:38) Influenza A And B By Pcr (04/23/23 08:38) Probnp Fs (04/23/23 08:38) Troponin I Fs (04/23/23 08:38) Chest 1 View Ap/Pa Only (04/23/23 08:38) Ed Iv/Invasive Line Start (04/23/23 08:38) Ekg Tracing (04/23/23 08:38) O2 (04/23/23 08:38) Covid 19 Inhouse Test (04/23/23 08:38) Ipratropium/Albuterol Inh Soln (Ipratrop (04/23/23 08:45) Ceftriaxone Iv/Im (Ceftriaxone Iv/Im) (04/23/23 09:30) Ns Iv 500 Ml (Ns Iv 500 Ml) (04/23/23 09:17) Dexamethasone Injection (Decadron Injec (04/23/23 09:30) Medications Given in ED Current Medications Medications Dose Ordered Sig/Anya Route Start Time Stop Time Status Last Admin Dose Admin Albuterol/ Ipratropium 3 ml ONCE ONCE INH 04/23/23 08:45 04/23/23 08:46 DC 04/23/23 08:58 3 ML Ceftriaxone Sodium 1000 mg/ Sodium Chloride 50 ml @ 100 mls/hr ONCE ONCE IV 04/23/23 09:30 04/23/23 09:59 04/23/23 09:30 100 MLS/HR Dexamethasone Sodium Phosphate 8 mg ONCE ONCE IV 04/23/23 09:30 04/23/23 09:31 DC 04/23/23 09:29 8 MG Vital Signs/I&O 04/23/23 04/23/23 08:25 08:39 Temp 36.6 Pulse 74 Resp 16 B/P (MAP) 148/112 (124) Pulse Ox 93 O2 Delivery Nasal Cannula Nasal Cannula O2 Flow Rate 3.00 3.00 Capillary Refill : Progress Note : Progress Note 77-year-old female with above history coming in due to productive cough and shortness of breath. ABCs were intact and vitals are stable on presentation on her baseline oxygen. On physical exam she had wheezing so she was given a DuoNeb with improvement. Oxygen was actually able to be titrated down to 2 L while at rest which is reassuring. An IV was placed and basic labs were obtained were significant for normal white blood cell count, normal creatinine, normal troponin, BNP around her baseline, slightly low potassium at 3.3 which is not significant. Chest x-ray ordered and interpreted by me showing no obvious pneumonia and appears similar to prior. Given the increasing productive cough with her history of COPD and more shortness of breath, this is consistent with a COPD exacerbation. Given she has had one recently, we will give her ceftriaxone here with a gentle bolus of IV fluids, and IV Decadron. We will send her home on cefdinir since she recently finished a course of Doxy several days ago. Her flu and COVID test were negative once again here. I believe she stable for discharge with outpatient follow-up. She was sent home with strict return precautions. ECG Initial ECG Impression Date: Apr 23, 2023 Initial ECG Impression Time: 08:56 Initial ECG Rate: 66 Initial ECG Rhythm: Normal Sinus Comment Narrow QRS, normal axis, T wave inversions in the inferior leads and laterally but no STEMI Diagnostic Imaging Diagonstic Imaging: Xray (chest) [facility] [place] [place] NAME: [facility] REC#: [id number] PT STATUS: REG ER : 1945 PHYSICIAN: NELI ASTORGA MD ADMIT DATE: 04/23/23/ER FS Draft Date of Exam:04/23/23 CHEST 1 VIEW AP/PA ONLY CLINICAL INDICATIONS: Patient with generalized weakness, productive cough and shortness of breath. EXAM: Portable chest x-ray upright view. COMPARISON: Chest x-ray dated 04/13/2023. FINDINGS: Lungs/pleura: There is minimal discoid atelectasis involving the right upper lobe. There is mild atelectasis involving the right lung base. There is no lung infiltrate seen. There is no pneumothorax. There is no pleural effusion. Mediastinum: Unremarkable. Pulmonary vasculature: Unremarkable. Heart: Unremarkable. Bones/extrathoracic soft tissue: Unremarkable. IMPRESSION: There is no lung infiltrate. There is mild atelectasis involving the right upper lobe and right lung base. Dictated on workstation # [id number] Dict: 04/23/23 0855 Trans: 04/23/23 0904 ROBE [id number] Interpreted by: TONI LEONARDO MD Electronically signed by: Departure Impression Primary Impression: COPD with acute exacerbation Additional Impression: Respiratory failure Qualified Codes: J96.11 - Chronic respiratory failure with hypoxia Disposition: HOME, SELF-CARE Condition: Stable Departure-Patient Inst. Decision time for Depature: 09:50 Referrals: ELISHA MCKEON MD (PCP/Family) Primary Care Physician Patient Instructions: COPD Exacerbation, Adult ED Add. Discharge Instructions: Your labs looked reassuring. Kidney function was good, white blood cell count good, and heart labs looked good. The only thing that was slightly abnormal was the potassium was just barely low. You can take an fnof-jrj-usjfhje potassium supplement for the next couple of days and it would be normal or just eat something that is potassium rich for a few meals. It is not really low enough to be significant however. Antibiotics were sent to your pharmacy as well as nausea medications. You will start the antibiotics tomorrow since the IV 1 you received today last 24 hours. We do recommend checking her oxygen saturation at times. If her oxygen cannot get above 89 to 90% despite being on 4 L and taking deep breaths and resting, we would recommend she be reevaluated by doctor again. Scripts Ondansetron (Ondansetron Odt) 4 Mg Tab.rapdis 4 MG SL Q6H PRN for NAUSEA/VOMITING for 5 Days, #20 TAB Prov: NELI ASTORGA MD 04/23/23 Cefdinir (Cefdinir) 300 Mg Capsule 300 MG PO BID for 7 Days, #14 CAP 0 Refills Prov: NELI ASTORGA MD 04/23/23 Work/School Note: Family Work Note Patient Received Medical Care In the Emergency Department On: Apr 23, 2023 Patient Will Be Able to Return to Work/School On: Apr 24, 2023 NELI ASTORGA MD Apr 23, 2023 08:42
[2023-04-23] MEDS ORDERED: RT-Ipratropium/Albuterol NEB 3 ML VIAL INH ONE (08:45)
[2023-04-23 08:49] LABS: BASOPHILS # (AUTO) 0.1 10^3/uL (0.0-0.1); BASOPHILS % (AUTO) 1 % (0-10); EOSINOPHILS # (AUTO) 0.7 10^3/uL (0.0-0.3); EOSINOPHILS % (AUTO) 7 % (0-10); HEMATOCRIT 44 % (35-52); HEMOGLOBIN 13.4 g/dL (11.5-16.0); LYMPHOCYTES # (AUTO) 2.4 10^3/uL (1.0-4.0); LYMPHOCYTES % (AUTO) 25 % (12-44); MEAN CORPUSCULAR HEMOGLOBIN 27 pg (25-34); MEAN CORPUSCULAR HGB CONC 31 g/dL (32-36); MEAN CORPUSCULAR VOLUME 86 fL (80-99); MEAN PLATELET VOLUME 11.1 fL (9.0-12.2); MONOCYTES # (AUTO) 0.7 10^3/uL (0.0-1.0); MONOCYTES % (AUTO) 7 % (0-12); NEUTROPHILS # (AUTO) 5.8 10^3/uL (1.8-7.8); NEUTROPHILS % (AUTO) 61 % (42-75); PLATELET COUNT 255 10^3/uL (130-400); WHITE BLOOD COUNT 9.6 10^3/uL (4.3-11.0)
[2023-04-23 09:01] LABS: INR 1.1 (0.8-1.4); PROTHROMBIN TIME PATIENT 14.6 SEC (12.2-14.7)
--- NOTE | 2023-04-23 09:05 | Diagnostic Imaging Report ---
CLINICAL INDICATIONS: Patient with generalized weakness, productive cough and shortness of breath. EXAM: Portable chest x-ray upright view. COMPARISON: Chest x-ray dated 04/13/2023. FINDINGS: Lungs/pleura: There is minimal discoid atelectasis involving the right upper lobe. There is mild atelectasis involving the right lung base. There is no lung infiltrate seen. There is no pneumothorax. There is no pleural effusion. Mediastinum: Unremarkable. Pulmonary vasculature: Unremarkable. Heart: Unremarkable. Bones/extrathoracic soft tissue: Unremarkable. IMPRESSION: There is no lung infiltrate. There is mild atelectasis involving the right upper lobe and right lung base. Dictated by: Dictated on workstation # [id number]
[2023-04-23 09:11] LABS: ALANINE AMINOTRANSFERASE 12 U/L (0-55); ALBUMIN 3.7 GM/DL (3.2-4.5); ALKALINE PHOSPHATASE 114 U/L (40-136); BILIRUBIN,TOTAL 0.5 MG/DL (0.1-1.0); BUN/CREATININE RATIO 12; CALCIUM 9.3 MG/DL (8.5-10.1); CARBON DIOXIDE 28 MMOL/L (21-32); CHLORIDE 105 MMOL/L (98-107); CREATININE SERUM 0.65 MG/DL (0.60-1.30); GFR ESTIMATED 91; GLUCOSE 116 MG/DL (70-105); POTASSIUM 3.3 MMOL/L (3.6-5.0); SODIUM 145 MMOL/L (135-145); TOTAL PROTEIN 6.8 GM/DL (6.4-8.2)
[2023-04-23] MEDS ORDERED: NS IV 500 ML 500 ML IV STA (09:17)
[2023-04-23] MEDS ORDERED: cefTRIAXone IV/IM 1,000 MG in NS (IVPB) 50 ML 50 ML IV ONE (09:30)
[2023-04-23] MEDS ORDERED: dexAMETHasone INJ 4 MG/ML SDV IV ONE (09:30)
[2023-04-23] MEDS ORDERED: ONDA4TAB11 SL (09:38)
[2023-04-23] MEDS ORDERED: CEFD300C3 PO (09:38)
[2023-04-23 09:57] VITALS: BP 125/82
== END 2023-04-23 09:57 | disposition home or self-care (01) ==
LOC: EDUNIT# 08:19 → ER FS 08:21
DX: J44.1 Chronic obstructive pulmonary disease with (acute) exacerbation (principal); J96.90 Respiratory failure, unspecified, unspecified whether with hypoxia or hypercapnia; I25.10 Atherosclerotic heart disease of native coronary artery without angina pectoris; I10 Essential (primary) hypertension; Z79.01 Long term (current) use of anticoagulants; Z99.81 Dependence on supplemental oxygen; Z88.2 Allergy status to sulfonamides; Z88.0 Allergy status to penicillin; Z20.822 Contact with and (suspected) exposure to COVID-19
CPT/HCPCS: 36415; 71045; 80053; 83605; 83735; 83880; 84484; 85025; 85610; 85730; 87636; 93005

== ENCOUNTER 2023-06-07 09:21 | Emergency (ER) | payer MEDICARE, MEDICAID ==
[~2023-06-07] VITALS: Ht 152 cm; Wt 68.0 kg
[~2023-06-07 09:21] MED LIST changes: +CEFD300C3 PO; +ONDA4TAB11 SL; -PREG75CA75 PO; +PREG75CA76 PO
[2023-06-07] MEDS ORDERED: methylPREDNISolone INJ 125 MG VIAL IV STA (09:34)
[2023-06-07] MEDS ORDERED: RT-Ipratropium/Albuterol NEB 3 ML VIAL ONE (09:43)
[2023-06-07] MEDS ORDERED: RT-Ipratropium/Albuterol NEB 3 ML VIAL INH ONE ×2 (09:45→11:15)
[2023-06-07 09:48] LABS: BASOPHILS # (AUTO) 0.1 10^3/uL (0.0-0.1); BASOPHILS % (AUTO) 1 % (0-10); EOSINOPHILS # (AUTO) 0.7 10^3/uL (0.0-0.3); EOSINOPHILS % (AUTO) 6 % (0-10); HEMATOCRIT 39 % (35-52); HEMOGLOBIN 12.3 g/dL (11.5-16.0); LYMPHOCYTES # (AUTO) 3.5 10^3/uL (1.0-4.0); LYMPHOCYTES % (AUTO) 34 % (12-44); MEAN CORPUSCULAR HEMOGLOBIN 28 pg (25-34); MEAN CORPUSCULAR HGB CONC 32 g/dL (32-36); MEAN CORPUSCULAR VOLUME 87 fL (80-99); MEAN PLATELET VOLUME 11.4 fL (9.0-12.2); MONOCYTES # (AUTO) 0.7 10^3/uL (0.0-1.0); MONOCYTES % (AUTO) 7 % (0-12); NEUTROPHILS # (AUTO) 5.4 10^3/uL (1.8-7.8); NEUTROPHILS % (AUTO) 52 % (42-75); PLATELET COUNT 288 10^3/uL (130-400); WHITE BLOOD COUNT 10.4 10^3/uL (4.3-11.0)
[2023-06-07 10:01] LABS: CHLORIDE 108 MMOL/L (98-107); POTASSIUM 3.3 MMOL/L (3.6-5.0); SODIUM 144 MMOL/L (135-145)
[2023-06-07 10:17] LABS: ALANINE AMINOTRANSFERASE 9 U/L (0-55); ALBUMIN 3.8 GM/DL (3.2-4.5); ALKALINE PHOSPHATASE 116 U/L (40-136); BILIRUBIN,TOTAL 0.5 MG/DL (0.1-1.0); BUN/CREATININE RATIO 19; CALCIUM 9.2 MG/DL (8.5-10.1); CARBON DIOXIDE 26 MMOL/L (21-32); CREATININE SERUM 0.73 MG/DL (0.60-1.30); GFR ESTIMATED 85; GLUCOSE 129 MG/DL (70-105)
--- NOTE | 2023-06-07 10:22 | Diagnostic Imaging Report ---
EXAMINATION: Chest 1 view HISTORY: palpitations COMPARISON: 04/23/2023. FINDINGS: There is a left hilar opacity. No edema or pneumonia.. No pleural effusion or pneumothorax. Heart size is normal. IMPRESSION: 1. Left hilar opacity. Chest CT with contrast recommended to evaluate for lymphadenopathy or a mass. Dictated by: Dictated on workstation # [id number]
[2023-06-07 10:33] LABS: FIBRIN DEGRADATION PRODUCTS 0.47 UG/ML (0.00-0.49); INR 1.2 (0.8-1.4); PROTHROMBIN TIME PATIENT 15.4 SEC (12.2-14.7)
--- NOTE | 2023-06-07 11:54 | ED General ---
General Chief Complaint: Respiratory Problems Stated Complaint: TREMORS; ANXIOUS Nursing Triage Note: ARRIVED VIA EMS FROM HOME ET STATES SHE WOKE UP FEELING ANXIOUS AND SHAKEY. HX OF COPD History of Present Illness Date Seen by Provider: Jun 07, 2023 Time Seen by Provider: 09:21 Initial Comments 77-year-old female with PMH of HTN/CAD with 3 stents 10 years ago/on Eliquis/COPD/anxiety, is brought in by EMS with complaints of anxiety and palpitations. Patient is a little short of breath but she feels as if her anxiety is triggering it. Denies fever and chills, cough, chest pain, abdominal pain, diarrhea and vomiting. No known sick contacts. Allergies and Home Medications Allergies Coded Allergies: Sulfa (Sulfonamide Antibiotics) (Verified Allergy, Unknown, 03/04/20) amoxicillin (Verified Allergy, Unknown, 03/04/20) citalopram (Verified Allergy, Unknown, 03/04/20) tomato (Verified Allergy, Unknown, 04/13/23) Patient Home Medication List Home Medication List Reviewed: Yes ALPRAZolam (Xanax Tablet) 0.25 Mg Tablet, 0.25 MG PO HS, (Reported) Entered as Reported by: VERENICE FREEMAN on 03/06/20 0857 Albuterol Sulfate (Albuterol Sulfate) 2.5 Mg/0.5 Ml Vial.neb, 2.5 MG INH Q4H Prescribed by: CLARY FRANZ MD on 04/13/232003 Amlodipine Besylate (Amlodipine Besylate) 10 Mg Tablet, 10 MG PO DAILY, (Reported) Entered as Reported by: VERENICE FREEMAN on 03/06/20 0857 Cefdinir (Cefdinir) 300 Mg Capsule, 300 MG PO BID Prescribed by: NELI ASTORGA on 04/23/23 0938 Clopidogrel Bisulfate (Clopidogrel) 75 Mg Tablet, 75 MG PO DAILY, (Reported) Entered as Reported by: VERENICE FREEMAN on 03/06/20 0857 Doxycycline Hyclate (Doxycycline Hyclate) 100 Mg Capsule, 100 MG PO DAILY, (Repo rted) Entered as Reported by: ALDAIR ROME on 07/06/22 1339 Fluticasone/Salmeterol (Advair 100-50 Diskus) 100 Mcg-50 Mcg/Dose Blst.wunruly, 1 EACH IH DAILY, (Reported) Entered as Reported by: ALDAIR ROME on 07/06/22 1339 Fluticasone/Vilanterol (Breo Ellipta 200-25 Mcg INH) 200 Mcg-25 Mcg/Dose Blst.w.dev, 1 EACH IH DAILY, (Reported) Entered as Reported by: ALDAIR ROME on 07/06/22 1339 Lovastatin (Lovastatin) 20 Mg Tablet, 20 MG PO HS, (Reported) Entered as Reported by: VERENICE FREEMAN on 03/06/20 0857 Meloxicam (Meloxicam) 15 Mg Tablet, 15 MG PO HS, (Reported) Entered as Reported by: VERENICE FREEMAN on 03/06/20 0857 Metoprolol Tartrate (Metoprolol Tartrate) 25 Mg Tablet, 25 MG PO BID, (Reported) Entered as Reported by: ALDAIR ROME on 07/06/22 133 Montelukast Sodium (Montelukast Sodium) 10 Mg Tablet, 10 MG PO HS, (Reported) Entered as Reported by: VERENICE FREEMAN on 03/06/20 0857 Ondansetron (Ondansetron Odt) 4 Mg Tab.rapdis, 4 MG SL Q6H PRN for NAUSEA/VOMITING Prescribed by: NELI ASTORGA on 04/23/23 0938 Pantoprazole Sodium (Pantoprazole Sodium) 40 Mg Tablet.dr, 40 MG PO DAILY, (Reported) Entered as Reported by: ALDAIR ROME on 07/06/22 133 Potassium Chloride (K-Tab ER) 20 Meq Tablet.er, 20 MEQ PO DAILY Prescribed by: ALEXANDRA BENITEZ on 12/10/21 0320 Prednisone (Prednisone) 50 Mg Tab, 50 MG PO DAILY Prescribed by: CLARY FRANZ MD on 04/13/23 1930 Pregabalin (Pregabalin) 75 Mg Capsule, 75 MG PO DAILY, (Reported) Entered as Reported by: ALDAIR ROME on 07/06/22 133 Rivaroxaban (Xarelto) 20 Mg Tablet, 20 MG PO DAILY, (Reported) Entered as Reported by: ALDAIR ROME on 07/06/22 133 Tizanidine HCl (Tizanidine HCl) 2 Mg Tablet, 2 MG PO DAILY, (Reported) Entered as Reported by: ALDAIR GUEVARA on 07/06/22 0589 Review of Systems Review of Systems Constitutional: no symptoms reported, see HPI EENTM: no symptoms reported Respiratory: short of breath Cardiovascular: no symptoms reported Gastrointestinal: no symptoms reported Genitourinary: no symptoms reported Musculoskeletal: no symptoms reported Skin: no symptoms reported Psychiatric/Neurological: Anxiety Hematologic/Lymphatic: No Symptoms Reported Immunological/Allergic: no symptoms reported Past Jslbsdr-Mnkqqw-Eaznzx Hx Patient Social History Tobacco Use?: No Substance use?: No Alcohol Use?: No Immunizations Up To Date First/Initial COVID19 Vaccinat: YES Second COVID19 Vaccination Cliff: YES Third COVID19 Vaccination Date: YES Seasonal Allergies Seasonal Allergies: Yes Past Medical History Surgery/Hospitalization HX: COPD Surgeries: Yes Adenoidectomy, Hysterectomy, Tonsillectomy Respiratory: Yes (oxygen at all times 4L/NC) COPD Cardiac: Yes (STENTS X3 FEBRUARY 2019) Heart Attack, Hypertension Neurological: No Genitourinary: No Gastrointestinal: Yes Diverticulosis, Polyps Musculoskeletal: Yes Amputee Endocrine: No HEENT: No Cancer: No Psychosocial: Yes Depression Integumentary: No Blood Disorders: No Physical Exam Vital Signs Vital Signs - First Documented 06/07/23 09:21 Temp 36.8 Pulse 76 Resp 16 B/P (MAP) 165/114 (131) Pulse Ox 86 O2 Delivery Nasal Cannula O2 Flow Rate 4.00 Capillary Refill : Less Than 3 Seconds Height, Weight, BMI Height: '" Weight: lbs. oz. kg; 29.00 BMI Method: General Appearance: No Apparent Distress, Anxious HEENT: PERRL/EOMI, Normal ENT Inspection, Other (Dry mucous membranes and tenting of skin) Neck: Full Range of Motion, Normal Inspection, Non Tender, Supple Respiratory: Chest Non Tender, No Accessory Muscle Use, No Respiratory Distress, Wheezing (Mild intermittent expiratory) Cardiovascular: Regular Rate, Rhythm, No Edema Gastrointestinal: Normal Bowel Sounds, Non Tender, Soft Neurologic/Psychiatric: Alert, Oriented x3 Skin: Normal Color Focused Exam Lactate Level 06/07/23 09:30: Lactic Acid Level 2.02*H 06/07/23 11:30: Lactic Acid Level 2.34*H Lactic Acid Level Laboratory Tests Test 06/07/23 09:30 06/07/23 11:30 Lactic Acid Level 2.02 MMOL/L (0.50-2.00) *H 2.34 MMOL/L (0.50-2.00) *H Progress/Results/Core Measures Suspected Sepsis SIRS Temperature: Pulse: 76 Respiratory Rate: 16 Laboratory Tests 06/07/23 09:30: White Blood Count 10.4 Blood Pressure 165 /114 Mean: 131 06/07/23 09:30: Lactic Acid Level 2.02*H 06/07/23 11:30: Lactic Acid Level 2.34*H Laboratory Tests 06/07/23 09:30: Creatinine 0.73, INR Comment 1.2, Platelet Count 288, Total Bilirubin 0.5 Results/Orders Lab Results Laboratory Tests Test 06/07/23 09:30 06/07/23 09:50 06/07/23 11:30 Range/Units White Blood Count 10.4 4.3-11.0 10^3/uL Red Blood Count 4.48 3.80-5.11 10^6/uL Hemoglobin 12.3 11.5-16.0 g/dL Hematocrit 39 35-52 % Mean Corpuscular Volume 87 80-99 fL Mean Corpuscular Hemoglobin 28 25-34 pg Mean Corpuscular Hemoglobin Concent 32 32-36 g/dL Red Cell Distribution Width 17.2 H 10.0-14.5 % Platelet Count 288 130-400 10^3/uL Mean Platelet Volume 11.4 9.0-12.2 fL Immature Granulocyte % (Auto) 0 % Neutrophils (%) (Auto) 52 42-75 % Lymphocytes (%) (Auto) 34 12-44 % Monocytes (%) (Auto) 7 0-12 % Eosinophils (%) (Auto) 6 0-10 % Basophils (%) (Auto) 1 0-10 % Neutrophils # (Auto) 5.4 1.8-7.8 10^3/uL Lymphocytes # (Auto) 3.5 1.0-4.0 10^3/uL Monocytes # (Auto) 0.7 0.0-1.0 10^3/uL Eosinophils # (Auto) 0.7 H 0.0-0.3 10^3/uL Basophils # (Auto) 0.1 0.0-0.1 10^3/uL Immature Granulocyte # (Auto) 0.0 0.0-0.1 10^3/uL Percent Immature Platelet Fraction 5.2 0.0-7.6 % Prothrombin Time 15.4 H 12.2-14.7 SEC INR Comment 1.2 0.8-1.4 Activated Partial Thromboplast Time 30 24-35 SEC D-Dimer 0.47 0.00-0.49 UG/ML Sodium Level 144 135-145 MMOL/L Potassium Level 3.3 L 3.6-5.0 MMOL/L Chloride Level 108 H 98-107 MMOL/L Carbon Dioxide Level 26 21-32 MMOL/L Anion Gap 10 5-14 MMOL/L Blood Urea Nitrogen 14 7-18 MG/DL Creatinine 0.73 0.60-1.30 MG/DL Estimat Glomerular Filtration Rate 85 BUN/Creatinine Ratio 19 Glucose Level 129 H 70-105 MG/DL Lactic Acid Level 2.02 *H 2.34 *H 0.50-2.00 MMOL/L Calcium Level 9.2 8.5-10.1 MG/DL Corrected Calcium 9.4 8.5-10.1 MG/DL Magnesium Level 2.0 1.6-2.4 MG/DL Total Bilirubin 0.5 0.1-1.0 MG/DL Aspartate Amino Transf (AST/SGOT) 24 5-34 U/L Alanine Aminotransferase (ALT/SGPT) 9 0-55 U/L Alkaline Phosphatase 116 40-136 U/L Troponin I < 0.30 <0.30 NG/ML Pro-B-Type Natriuretic Peptide 139.5 <450.0 PG/ML Total Protein 7.0 6.4-8.2 GM/DL Albumin 3.8 3.2-4.5 GM/DL Influenza Type A (RT-PCR) Not Detected Not Detecte Influenza Type B (RT-PCR) Not Detected Not Detecte SARS-CoV-2 RNA (RT-PCR) Not Detected Not Detecte My Orders Orders - CLARY FRANZ MD Chest 1 View Ap/Pa Only (06/07/23 09:31) Cbc And Automated Diff (06/07/23 09:31) Comprehensive Metabolic Panel (06/07/23 09:31) Fibrin Degradation Products (06/07/23 09:) Lactic Acid Analyzer (06/07/23 09:31) Magnesium (06/07/23 09:31) Protime With Inr (06/07/23 09:31) Partial Thromboplastin Time (06/07/23 09:31) Blood Culture (06/07/23 09:31) Influenza A And B By Pcr (06/07/23 09:31) Probnp Fs (06/07/23 09:31) Troponin I Fs (06/07/23 09:31) Covid 19 Inhouse Test (06/07/23 09:31) Ipratropium/Albuterol Inh Soln (Ipratrop (06/07/23 09:45) Methylprednisolone Sod Succ (Methylpredn (06/07/23 09:34) Svn Small Volume Nebulizer (06/07/23 09:34) Ipratropium/Albuterol Inh Soln (Ipratrop (06/07/23 09:43) Ipratropium/Albuterol Inh Soln (Ipratrop (06/07/23 11:15) Svn Small Volume Nebulizer (06/07/23 11:04) Ed Iv/Invasive Line Start (06/07/23 11:48) Ns Iv 500 Ml (Ns Iv 500 Ml) (06/07/23 12:00) Ekg Tracing (06/07/23 11:50) Ns Iv 500 Ml (Ns Iv 500 Ml) (06/07/23 12:01) Medications Given in ED Current Medications Medications Dose Ordered Sig/Anya Route Start Time Stop Time Status Last Admin Dose Admin Albuterol/ Ipratropium 3 ml ONCE ONCE INH 06/07/23 09:45 06/07/23 09:46 DC 06/07/23 09:38 3 ML Albuterol/ Ipratropium 3 ml ONCE ONCE INH 06/07/23 11:15 06/07/23 11:16 DC 06/07/23 11:20 3 ML Sodium Chloride 500 ml @ 0 mls/hr Q0M ONCE IV 06/07/23 12:00 06/07/23 12:03 DC 06/07/23 12:03 500 MLS/HR Vital Signs/I&O 06/07/23 09:21 Temp 36.8 Pulse 76 Resp 16 B/P (MAP) 165/114 (131) Pulse Ox 86 O2 Delivery Nasal Cannula O2 Flow Rate 4.00 Capillary Refill : Less Than 3 Seconds Blood Pressure Mean: 131 Progress Note : Progress Note 1. ACUTE COPD WITH ANXIETY & DEHYDRATION: -Patient did not have any palpitations in the ER - CBC: WBC is normal - CMP unremarkable except s.K of 3.3 - Lactic acid is elevated at 2.02 - Troponin undetectable - COVID test/ Rapid flu test: negative - Duo neb x 2 and Solumedrol 125mg iv STAT. Pt improved with this. - Will send O2 tubing home with pt since the one she has at home is too long. - Advised home O2 of 4L for the next 24 hours. ( pt's baseline is 3L) - Follow up with PCP in the next 7 days, call for appointment. - Adequate hydration advised, at least 8 glasses of water a day. -The patient was seen in the ED, and treated appropriately to presentation at a specific point in time. Patient is informed that there is a possibility that disease and illness can evolve and change in acuity rapidly or slowly after patient is discharged from the ER. Precautionary advice given to the patient for immediate return to ER if symptoms worsen or do not resolve, and to seek emergency care sooner rather than later. Pt also advised on the importance of PCP follow up and compliance with management and follow up plan with PCP and/or specialist, as this is part of the management plan. Pt verbally expressed und erstanding. Diagnostic Imaging Diagonstic Imaging: Xray Plain Films/CT/US/NM/MRI: chest Comments [facility]. [place], [place] NAME: [facility] REC#: [id number] PT STATUS: REG ER : 1945 PHYSICIAN: CLARY FRANZ MD ADMIT DATE: 06/07/23/ER FS Signed Date of Exam:06/07/23 CHEST 1 VIEW AP/PA ONLY EXAMINATION: Chest 1 view HISTORY: palpitations COMPARISON: 04/23/2023. FINDINGS: There is a left hilar opacity. No edema or pneumonia.. No pleural effusion or pneumothorax. Heart size is normal. IMPRESSION: 1. Left hilar opacity. Chest CT with contrast recommended to evaluate for lymphadenopathy or a mass. Dictated by: Dictated on workstation # [id number] Dict: 06/07/23 1020 Trans: 06/07/23 1120 CVB [id number] Interpreted by: LISS ALBERTO MD Electronically signed by: LISS ALBERTO MD 06/07/23 1120 Departure Impression Primary Impression: COPD with acute exacerbation Additional Impressions: Dehydration Anxiety Disposition: 01 HOME, SELF-CARE Condition: Improved Departure-Patient Inst. Referrals: ELISHA MCKEON MD (PCP) Primary Care Physician Patient Instructions: Anxiety, Adult ED, COPD Exacerbation, Adult ED, COPD Diet, Dehydration, Adult (DC) Add. Discharge Instructions: - Will send O2 tubing home with pt since the one she has at home is too long. - Advised home O2 of 4L for the next 24 hours. - Use inhaler and neb treatments as instructed by PCP - Follow up with PCP in the next 7 days, call for appointment. - Adequate hydration advised, at least 8 glasses of water a day. All discharge instructions reviewed with patient and/or family. Voiced understanding. CLARY FRANZ MD Jun 07, 2023 11:54
[2023-06-07] MEDS ORDERED: NS IV 500 ML 500 ML IV ONE (12:00)
[2023-06-07] MEDS ORDERED: NS IV 500 ML 500 ML ONE (12:01)
[2023-06-07 13:03] VITALS: BP 116/87
== END 2023-06-07 13:03 | disposition home or self-care (01) ==
LOC: ER FS 09:21 → EDUNIT# 09:21 → ER FS 12:48
DX: J44.1 Chronic obstructive pulmonary disease with (acute) exacerbation (principal); F41.9 Anxiety disorder, unspecified; E86.0 Dehydration; Z99.81 Dependence on supplemental oxygen; Z20.822 Contact with and (suspected) exposure to COVID-19; Z79.01 Long term (current) use of anticoagulants
CPT/HCPCS: 36415; 71045; 80053; 83605; 83735; 83880; 84484; 85025; 85379; 85610; 85730; 87040; 87636; 93005; 96374